=== PATIENT | female | born 1935 | race Caucasian/White ===

== ENCOUNTER 2017-01-18 13:40 | Inpatient (IN) | payer OTHER, MEDICARE ==
[~2017-01-18] VITALS: Ht 162.6 cm; Wt 70.8 kg
[~2017-01-18 13:40] MED LIST: ALBUTEROL2.5 MG/3 M INH; ASPIRIN EC81 M1 PO; BREO ELLIPTA1 POW PO; CINNAMON500 MG PO; JANUVIA 100MG100 MG PO; JANUVIA100 M1 PO; LEVOTHYROXINE0.1 M1 PO; LEVOTHYROXINE75 MCG PO; LIDODERM 5% PAT1 PAT EXT; LOPRESSOR 25MG25 MG PO; MACROBID100 MG PO; METOPROLOL TART25 M1 PO; NEXIUM 40MG40 MG PO; OMEPRAZOLE40 MG PO; PRAVASTATIN SOD40 M2 PO; PRAVASTATIN SOD40 MG PO; PREDNISONE10 M2 PO; PREDNISONE10 MG PO; SPIRIVA18 MCG INH; SYMBICORT 80-10.2 GM INH; TUDORZA PR400 MCG/Ac PO; TYLENOL TAB 32325 MG PO
--- NOTE | 2017-01-18 13:44 | NUR ---
90% ON 3L NC
--- NOTE | 2017-01-18 13:50 | NUR ---
PT TO ED C/O INCREASING EXERTIONAL SOB X A FEW DAYS. PT IS ON 6L NC AT HOME. SATS NOW ON 6L NC 92%. PT'S PCP IS DR SULLIVAN, PT ALSO SEE'S DR ROBERTS.
--- NOTE | 2017-01-18 13:52 | NUR ---
PT TAKEN TO ROOM 3 VIA W/C.
--- NOTE | 2017-01-18 14:06 | NUR ---
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 IV INITIATED, LABS DRAWN. MEEK BYRD AT BEDSIDE FOR EVALUATION
--- NOTE | 2017-01-18 14:10 | ED DYSPNEA/ASTHMA COMPLAINT ---
History of Present Illness General Chief Complaint: Dyspnea (COPD, CHF, Other) Stated Complaint: SOB Source: patient Exam Limitations: no limitations Vital Signs & Intake/Output Vital Signs & Intake/Output Vital Signs Date Time Temp Pulse Resp B/P B/P Pulse O2 O2 Flow FiO2 Mean Ox Delivery Rate 01/18 1650 82 99 01/18 1519 96 97 01/18 1511 98.2 96 40 144/63 92 Nasal 6.0L Cannula 01/18 1440 93 Nasal 6.0L Cannula 01/18 1349 98.0 100 20 110/65 92 Nasal 6.0L Cannula Allergies Coded Allergies: Penicillins (UNKNOWN 12/22/15) amoxicillin (UNKNOWN 12/22/15) azithromycin (UNKNOWN 12/22/15) sulfamethoxazole (From Bactrim) (RASH 12/22/15) trimethoprim (From Bactrim) (RASH 12/22/15) Reconcile Medications Albuterol Sulfate 2.5 MG/3 ML VIAL.NEB 3 ML INH Q4H PRN SHORTNESS OF BREATH Aspirin (Ecotrin) 81 MG TABLET.DR 1 TAB PO DAILY HEART HEALTH (Reported) Budesonide/Formoterol Fumarate (Symbicort 80-4.5 Mcg Inhaler) 10.2 GM HFA.AER.AD 2 PUF INH BID COPD (Reported) Cinnamon (Unknown Strength) CAP 1 CAP PO QPM SUPPLEMENT (Reported) Levothyroxine Sodium 88 MCG TABLET 1 TAB PO DAILY THYROID (Reported) Metoprolol Tartrate 25 MG TABLET 0.5 TAB PO BID SVT (Reported) Pravastatin Sodium 40 MG TABLET 1 TAB PO DAILY CHOLESTEROL (Reported) Prednisone 10 MG TABLET 1 TAB PO SEE ADMIN CRITERIA COPD TAKE 6 TAB FOR 12/26 & THEN TAKE 5 TAB FOR 3 DAY THEN TAKE 4 TAB FOR 3 DAY THEN TAKE 3 TAB FOR 3 DAY THEN TAKE 2 TAB FOR 3 DAY THEN TAKE 1 TAB FOR 3 DAY THEN TAKE 1/2 TAB FOR 3 DAY THEN Sitagliptin Phosphate (Januvia) 100 MG TABLET 1 TAB PO DAILY DIABETES ( Reported) Reason to Stop at ADM: ISS Tiotropium [place] (Spiriva) 18 MCG CAP.W.DEV 1 CAP INH DAILY COPD (Reported) Reason to Stop at ADM: TRC NEBS Triage Note: PT TO ED C/O INCREASING EXERTIONAL SOB X A FEW DAYS. PT IS ON 6L NC AT HOME. SATS NOW ON 6L NC 92%. PT'S PCP IS DR SULLIVAN, PT ALSO SEE'S DR ROBERTS. Triage Nurses Notes Reviewed? yes Onset: Gradual Duration: week(s): (1) Timing: recent history Severity: severe Activities at Onset: activity, rest Prior Episodes/Possible Cause: occasional episodes Modifying Factors: Improves With: immobilization. Worsens With: movement. Associated Symptoms: cough HPI: Patient is an 82-year-old female with history of COPD, on 6 L nasal cannula chronically, sees Dr. mota as her pulmonologists, presenting to the emergency department with chief complaint of increasing shortness of breath, intermittently productive cough of clear sputum over the past 1 week. Dyspnea is worse with exertion. Denies any chest pain or palpitations. Positive wheezing. No fevers or chills. Denies abdominal pain. No change in bowel or bladder habits. Has been using nebulizer treatments 4-5 times daily over the past week without relief. History of being admitted for COPD exacerbation one year ago. Denies palpitations. No recent travel or sick contacts. (ESSENCE MCDANIEL) Past History Travel History Traveled to [place] past 21 day No Medical History Any Pertinent Medical History? see below for history Neurological: NONE EENT: NONE Respiratory: COPD, o2 DEPENDENT CHRONICALLY Gastrointestinal: NONE Hepatic: NONE Renal: NONE Musculoskeletal: NONE Psychiatric: NONE Endocrine: hypothyroidism, DM Blood Disorders: NONE Cancer(s): NONE ADMINISTRATIVE SUPPORT COORDINATOR/Reproductive: HYSTERECTOMY History of MRSA: No History of VRE: No History of CDIFF: No Tetanus Vaccine: 08/28/14 Surgical History Surgical History: cataract removal, hysterectomy Psychosocial History Who do you live with Patient/Self Services at Home None What is your primary language Maori Tobacco Use: Quit >30 days ago ETOH Use: denies use Illicit Drug Use: denies illicit drug use Family History Family History, If Any: MOTHER FHx: diabetes mellitus SISTER (breast cancer). BROTHER (colon cancer). Hx Contributory? No (ESSENCE MCDANIEL) Review of Systems Review of Systems Constitutional: Reports: malaise. Comments Review of systems: See HPI, All other systems negative. Constitutional, no chills fever or weight loss HEENT: No visual changes no sore throat no congestion Cardiovascular: No chest pain ,palpitation , orthopnea or ankle swelling Skin, no jaundice no rashes Respiratory: No hemoptysis GI: No nausea no vomiting : No dysuria No hematuria Muscle skeletal: no back pain, no neck pain, Neurologic: No numbness no confusion no [place] Psych: No stress anxiety or depression,. Heme/endocrine: No bruising no bleeding no polyuria or polydipsia Immunology: No splenectomy or history of AIDS (ROCHELLE EDEN,ESSENCE) Physical Exam Physical Exam General Appearance: alert, awake, moderate distress Respiratory: decreased breath sounds, accessory muscle use, wheezing Comments: Well-developed well-nourished person in moderate distress HEENT: Pupils equally round and reactive to light and accommodation. Nose is atraumatic. External auditory canal and Tympanic membranes clear. Pharynx normal. No swelling or edema. Neck: Normal inspection, no lymphadenopathy normal range of motion. Back: Nontender Cardiovascular: Regular rate and rhythms no murmurs rubs or gallops, normal JVP Respiratory: Chest nontender. Moderate to severe respiratory distress.diffuse wheezing with diminished lung sounds bilaterally at the bases. Increased work of breathing. Intercostal retraction. positive abdominal breathing. Extremity: No edema, no calf tenderness to palpation, normal and equal pulses. Neuro: Alert oriented x3 Skin: No appreciable rash on exposed skin, skin is warm and dry. Psych: Mood and affect is normal, memory and judgment is normal. Core Measures ACS in differential dx? Yes Severe Sepsis Present: No Septic Shock Present: No (ROCHELLE EDEN,ESSENCE) Progress Differential Diagnosis: PATIENT: MARQUITA TREVINO PRESENT AGE: 82 PATIENT ACCOUNT NO: [id number] : 36 LOCATION: [facility] ORDERING PHYSICIAN: ESSENCE EDEN SERVICE DATE: 01/18/17 EXAM TYPE: RAD - XRY-PORTABLE CHEST XRAY EXAMINATION: XR PORTABLE CHEST CLINICAL INFORMATION: Cough, shortness of breath. COMPARISON: Portable chest 12/22/2015, 08/28/2014. TECHNIQUE: Portable frontal view of the chest was obtained. FINDINGS : There is upper zone hyperinflation. The heart is normal in size. The vascularity is normal. Subsegmental atelectasis is present right base. There is suspicion for early airspace consolidation inferior lingula. Tapering at the cardiac apex is consistent with areolar tissue. The remainder the lungs are clear. IMPRESSION: 1. Suspect early airspace consolidation inferior lingula. 2. Disc atelectasis right base. Plan of Care: Orders Procedure Date/time Status Heart Healthy Diet 01/19 B Active Patient Data 01/18 1624 Active EKG 01/18 1624 Active ARTERIAL BLOOD GAS (GEN) 01/18 1623 Complete BLOOD CULTURE 01/18 1623 Active ED Holding Orders 01/18 1619 Active Admit to inpatient 01/18 1619 Active Vital Signs 01/18 1619 Active Code Status 01/18 1619 Active Add-on Test (ER Only) 01/18 1558 Active BIPAP 01/18 1508 Complete Intake & Output 01/18 1418 Active Telemetry/Rotary Cutter Operator 01/18 1417 Active MAGNESIUM 01/18 1410 Complete ARTERIAL BLOOD GAS (GEN) 01/18 1409 Complete TROPONIN LEVEL 01/18 1409 Complete COMPREHENSIVE METABOLIC PANEL 01/18 1409 Complete CBC WITHOUT DIFFERENTIAL 01/18 1409 Complete B-TYPE NATRIURETIC PEP (BNP) 01/18 1409 Complete EKG 01/18 1407 Active Laboratory Tests 01/18/17 1700: pH 7.41, pCO2 47 H, pO2 79 L, HCO3 29 H, ABG O2 Sat (Measured) 95.0 L, Carboxyhemoglobin 1.2 L, O2 Concentration % 40%, Temperature 98.6, Respiration Rate 24, O2 Delivery Method BIPAP, Vent Mode ST, Expiratory Pressure 4, Inspiratory Pressure 10, Phlebotomy Draw Site RIGHT BRACHIAL 01/18/17 1435: pH 7.32 L, pCO2 64 *H, pO2 73 L, HCO3 32 H, ABG O2 Sat (Measured) 92.0 L, P- 50 (Temp Corrected) N, Carboxyhemoglobin 0.7 L, O2 Concentration % 6LPM, O2 Delivery Method NEB TX, Phlebotomy Draw Site RIGHT BRACHIAL 01/18/17 1410: Anion Gap 9, Estimated GFR > 60, BUN/Creatinine Ratio 55.0 H, Glucose 221 H, Calcium 9.3, Magnesium 1.8, Total Bilirubin 0.6, AST 22, ALT 27, Alkaline Phosphatase 54, Troponin I 0.01, Tdx-R-Chzbmfgqmko Pept 361 H, Total Protein 6.9, Albumin 3.8, Globulin 3.1, Albumin/Globulin Ratio 1.2, CBC w Diff NO MAN DIFF REQ, RBC 4.14 L, MCV 92.4, MCH 29.7, RDW 13.8, MPV 9.3, Gran % 67.8, Lymphocytes % 20.4 L, Monocytes % 10.0 H, Eosinophils % 1.6, Basophils % 0.2, Absolute Granulocytes 8.6 H, Absolute Lymphocytes 2.6, Absolute Monocytes 1.3 H, Absolute Eosinophils 0.2, Absolute Basophils 0, PUBS MCHC 32.1 L Microbiology 01/18 1650 BLOOD: Blood Culture - RECD 01/18 1637 BLOOD: Blood Culture - RECD On arrival patient moderate respiratory distress with diffuse wheezing and diminished lung sounds bilaterally. Oxygen saturation on 6 L was in the mid 80s. Positive increased work of breathing. Respiratory was paged patient given raiding treatment along with arterial blood gas sample done. Patient was also given IV Solu-Medrol, IV magnesium to help with bronchodilation. Likely exacerbation of COPD. Cannot exclude pneumonia. Patient afebrile on arrival. With a CBC, CMP, troponin. EKG was normal sinus, unchanged from previous. Patient feeling much improved after treatments, including BiPAP. Work of breathing has decreased since BiPAP. Patient seems more relaxed. We will repeat ABG. Patient will be admitted for COPD exacerbation. She does also have early pneumonia on x-ray with small elevation in white blood cell count. Due to allergies patient given moxifloxacin. d/w dr gotti and he agrees with plan. (ROCHELLE EDEN,ESSENCE) Diagnostic Imaging: Viewed by Me: Radiology Read. Discussed w/RAD: Radiology Read. Radiology Impression: PATIENT: MARQUITA TREVINO PRESENT AGE: 82 PATIENT ACCOUNT NO: [id number] : 36 LOCATION: [facility] ORDERING PHYSICIAN: ESSENCE EDEN SERVICE DATE: 01/18/17 EXAM TYPE: RAD - XRY-PORTABLE CHEST XRAY EXAMINATION: XR PORTABLE CHEST CLINICAL INFORMATION: Cough, shortness of breath. COMPARISON: Portable chest 12/22/2015, 08/28/2014. TECHNIQUE: Portable frontal view of the chest was obtained. FINDINGS : There is upper zone hyperinflation. The heart is normal in size. The vascularity is normal. Subsegmental atelectasis is present right base. There is suspicion for early airspace consolidation inferior lingula. Tapering at the cardiac apex is consistent with areolar tissue. The remainder the lungs are clear. IMPRESSION: 1. Suspect early airspace consolidation inferior lingula. 2. Disc atelectasis right base. Initial ED EKG: NSR ( 97 bpm, lbbb) (ESSENCE MCDANIEL) Departure Departure Time of Disposition: 1600 Disposition: STILL A PATIENT Condition: Stable Clinical Impression Primary Impression: Pneumonia Qualifiers: Pneumonia type: due to unspecified organism Referrals: NATE GALLAGHER,MARY Dee (PCP) Departure Forms: Customer Survey General Discharge Information Admission Note Spoke With: CLAIRE KIM MD Documentation of Exam: Documentation of any treatments & extenuating circumstances including Concerns Regarding Discharge (functional status, medication knowledge or non-compliance, living conditions, etc.) that warrant an admission rather than observation: Patient requiring IV antibiotics for pneumonia, IV steroids for COPD exacerbation, pulmonology consultation, serial DuoNeb treatments, titration oxygen and weaning off BiPAP, repeat ABG. Discharge at this time is medically harmful S patient would likely deteriorate and worsen at home area patient requiring more oxygen than baseline. Patient is not BiPAP dependent at home. (ESSENCE MCDANIEL) PA/CONTRACT NEGOTIATION SPECIALIST Co-Sign Statement Statement: ED Attending supervision documentation- [x] I saw and evaluated the patient. I have also reviewed all the pertinent lab results and diagnostic results. I agree with the findings and the plan of care as documented in the PA's/CONTRACT NEGOTIATION SPECIALIST's documentation. [] I have reviewed the ED Record and agree with the PA's/CONTRACT NEGOTIATION SPECIALIST's documentation. [] Additions or exceptions (if any) to the PAs/CONTRACT NEGOTIATION SPECIALIST's note and plan are summarized below: [] (WILFRED GOTTI DO) Critical Care Note Critical Care Note Critical Care Time: non-applicable (ESSENCE MCDANIEL)
--- NOTE | 2017-01-18 14:21 | NUR ---
PT MEDICATED WITH 125 MG SOLUMEDROL IV AND 1 GM MAG IV. FAMILY MEMBERS AT BEDSIDE
--- NOTE | 2017-01-18 14:22 | NUR ---
RT AT BEDSIDE FOR NEB TX AND ABG. PCXR AT BEDSIDE
[2017-01-18 14:29] LABS: ABSOLUTE BASOPHIL COUNT 0 /CUMM (0.0-0.2); ABSOLUTE EOSINOPHIL COUNT 0.2 /CUMM (0.0-0.7); ABSOLUTE GRANULOCYTE CT 8.6 /CUMM (1.4-6.5); ABSOLUTE LYMPH COUNT 2.6 /CUMM (1.2-3.4); ABSOLUTE MONOCYTE COUNT 1.3 /CUMM (0.10-0.60); BASOPHIL % 0.2 % (0.0-2.0); EOSINOPHIL % 1.6 % (0-5); GRANULOCYTE % 67.8 % (42.2-75.2); HEMATOCRIT 38.2 % (37-47); MEAN CORPUSCULAR HGB 29.7 PG (27.0-31.0); MEAN CORPUSCULAR HGB CONC 32.1 G/DL (33.0-37.0); MEAN CORPUSCULAR VOLUME 92.4 FL (81.0-99.0); MEAN PLATELET VOLUME 9.3 FL (7.4-10.4); PLATELET COUNT 204 /CUMM (130-400); RBC DISTRIBUTION WIDTH 13.8 % (11.5-14.5); RED BLOOD CELL CT 4.14 /CUMM (4.20-5.40); WHITE BLOOD CELL COUNT 12.8 /CUMM (4.8-10.8)
--- NOTE | 2017-01-18 14:44 | RADIOLOGY REPORT ---
EXAMINATION: XR PORTABLE CHEST CLINICAL INFORMATION: Cough, shortness of breath. COMPARISON: Portable chest 12/22/2015, 08/28/2014. TECHNIQUE: Portable frontal view of the chest was obtained. FINDINGS: There is upper zone hyperinflation. The heart is normal in size. The vascularity is normal. Subsegmental atelectasis is present right base. There is suspicion for early airspace consolidation inferior lingula. Tapering at the cardiac apex is consistent with areolar tissue. The remainder the lungs are clear. IMPRESSION: 1. Suspect early airspace consolidation inferior lingula. 2. Disc atelectasis right base.
--- NOTE | 2017-01-18 15:09 | NUR ---
ASSUMED CARE OF PT. RECIEVED REPORT FROM ISMAEL HARP. PT WITH RR OF 40. SATS 92% ON 6 L NC. PT DENIES FEELING ANY BETTER AFTER INITIAL TX OF NEBULIZER, SOLUMEDROL AND MAGNESIUM. RESP THERAPIST IN ROOM TO APPLY BIPAP. SATS DIPTI TO 97% AFTER BEING ON BIPAP FOR 2 MINUTES. PT ENCOURAGED TO TRY TO RELAX WITH BIPAP ON.
--- NOTE | 2017-01-18 15:36 | NUR ---
PT SITTING UP AT FOOT OF STRETCHER. RR 24-30. SATS 97%. PT ASKING IF SHE CAN TAKE BIPAP OFF. PT ENCOURAGED TO CONTINUE TO WEAR BIPAP
--- NOTE | 2017-01-18 15:37 | NUR ---
PT SITTING AT FOOT OF STRETCHER. RR 24-20. SATS 97%. PT ASKING IF SHE CAN COME OFF BIPAP. PT ENCOURAGED TO KEEP BIPAP ON LONG POSSIBLE
--- NOTE | 2017-01-18 16:16 | NUR ---
HOUSE STAFF IN TO SEE PT
--- NOTE | 2017-01-18 16:25 | History & Physical ---
DANIEL GALLAGHER,[facility] 01/18/17 1616: General Information and HPI MD Statement: I have seen and personally examined MARQUITA TREVINO and documented this H&P. The patient is a 82 year old F who presented with a patient stated chief complaint of [shortness of breath]. Source of Information: patient Exam Limitations: no limitations History of Present Illness: This is 82 year old woman with a past medical hsitory of COPD, on home oxygen, 6L lives alone, NIDDM, history of SVT, Hypothyroidism S/P Goiter surgery, on levothyroxine, presented to [place] ED with 3 day history of shortness of breath. 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 The patient has had increased shortness of breath over past 3 days. The shortness of breath is present at rest and increases with exertion. It is also accompanied by productive cough intermittently. Sometimes there is white phlegm with the cough. For the past few days she has been using her nebulizer 4-5 times every day without any relief and today she decided to come to ED because it was getting worse. She denies any nausea vomiting. She does not endorse any fever or chills. There is no history of sick contacts. She has never been intubated for COPD. She denies any chest pain or palpitations. The patient was sitting comfortably in the bed and she was on BiPAP during the interview. 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 BROTHER (colon cancer). Psychosocial History Services at Home: None Primary Language: Latvian Smoking Status: Former Smoker (1 ppd quit long time ago) ETOH Use: denies use Illicit Drug Use: denies illicit drug use Functional Ability ADLs Independent: dressing, eating, toileting, bathing. Review of Systems Review of Systems Constitutional: Denies: chills, fever. EENTM: Reports: no symptoms. Cardiovascular: Denies: chest pain, palpitations. Respiratory: Reports: short of breath. Denies: cough. GI: Reports: no symptoms. Denies: constipation, diarrhea. Genitourinary: Reports: no symptoms. Musculoskeletal: Reports: no symptoms. Skin: Reports: no symptoms. Neurological/Psychological: Reports: no symptoms. Exam & Diagnostic Data Last 24 Hrs of Vital Signs/I&O Vital Signs Date Time Temp Pulse Resp B/P B/P Pulse O2 O2 Flow FiO2 Mean Ox Delivery Rate 01/18 1519 96 97 01/18 1511 98.2 96 40 144/63 92 Nasal 6.0L Cannula 01/18 1440 93 Nasal 6.0L Cannula 01/18 1349 98.0 100 20 110/65 92 Nasal 6.0L Cannula Intake & Output 01/18 1600 01/18 0800 01/18 0000 Intake Total Output Total Balance Patient 156 lb Weight Weight Estimated Measurement Method Physical Exam General Appearance Alert, Oriented X3, Cooperative, No Acute Distress Skin No Rashes, No Breakdown HEENT Atraumatic, Pupils equally round and reactive to light and accommodation. Nose is atraumatic. Neck Supple, No JVD Cardiovascular Normal S1, Normal S2 Lungs diminished lung sounds bilaterally at the bases. crackels at base. Abdomen Normal Bowel Sounds, Soft, No Tenderness Neurological Normal Speech Extremities No Edema Last 24 Hrs of Labs/Bill: Laboratory Tests 01/18/17 1700: pH 7.41, pCO2 47 H, pO2 79 L, HCO3 29 H, ABG O2 Sat (Measured) 95.0 L, Carboxyhemoglobin 1.2 L, O2 Concentration % 40%, Temperature 98.6, Respiration Rate 24, O2 Delivery Method BIPAP, Vent Mode ST, Expiratory Pressure 4, Inspiratory Pressure 10, Phlebotomy Draw Site RIGHT BRACHIAL 01/18/17 1435: pH 7.32 L, pCO2 64 *H, pO2 73 L, HCO3 32 H, ABG O2 Sat (Measured) 92.0 L, P- 50 (Temp Corrected) N, Carboxyhemoglobin 0.7 L, O2 Concentration % 6LPM, O2 Delivery Method NEB TX, Phlebotomy Draw Site RIGHT BRACHIAL 01/18/17 1410: Anion Gap 9, Estimated GFR > 60, BUN/Creatinine Ratio 55.0 H, Glucose 221 H, Calcium 9.3, Magnesium 1.8, Total Bilirubin 0.6, AST 22, ALT 27, Alkaline Phosphatase 54, Troponin I 0.01, Fju-M-Jcpgbexnsnn Pept 361 H, Total Protein 6.9, Albumin 3.8, Globulin 3.1, Albumin/Globulin Ratio 1.2, CBC w Diff NO MAN DIFF REQ, RBC 4.14 L, MCV 92.4, MCH 29.7, RDW 13.8, MPV 9.3, Gran % 67.8, Lymphocytes % 20.4 L, Monocytes % 10.0 H, Eosinophils % 1.6, Basophils % 0.2, Absolute Granulocytes 8.6 H, Absolute Lymphocytes 2.6, Absolute Monocytes 1.3 H, Absolute Eosinophils 0.2, Absolute Basophils 0, PUBS MCHC 32.1 L Microbiology 01/18 1650 BLOOD: Blood Culture - RECD 01/18 1637 BLOOD: Blood Culture - RECD Assessment/Plan Assessment: Assessment This is 82 year old woman with a past medical hsitory of COPD, on home oxygen, 6L lives alone, NIDDM, history of SVT, Hypothyroidism S/P Goiter surgery, on levothyroxine, PE not on any anticoagulation presented to [place] ED with 3 day history of shortness of breath. Pertinent data Vital signs on admission temperature 98.0 pulse 100 respiratory rate 20 blood pressure 110-65 pulse ox 92% ABG pH 7.32 Pco2 64 PO2 73 Bicarb 32 WBC 12.8, BNP 361, HCO3 33, BUN 22 Cr .4 CXR Suspect early airspace consolidation inferior lingula.Disc atelectasis right base. EKG showed LBBB,Rate 62, VA 164, QRS 128, QTC 486. Plan In ED, patient was on 6 L nasal cannula and satting 92%. Nebulizer, Solu-Medrol and magnesium were given to her in ED and later started on BIPAP by the respiratory therapist. Pt was given single dose of Moxifloxcin as well. We're admitting her to [facility] for further monitoring and treatment. Acute hypoxic respiratory failure secondary to COPD exacerbation: This is most likely acute COPD exacerbation requiring a BiPAP in ER. She was found to be hypoxic and hypercarbic by ABG. Her repeat ABGs showed improvement. She is afebrile with a white count of 12 with suspected airspace consolidation of the inferior lingula * TRC as necessary * Nasal cannula and BiPAP as needed for sats greater than 92% * Continue Solu-Medrol * With the suspicion of CAP, patient is being started on IV doxycycline (patient had allergy to penicillin and azithromycin) * Follow Strep and legionella urine antigen * Monitor CBC * follow blood cultures * Courtesy call to Dr. Perez in the morning Sinus Tachycardia Patient had history of SVT in the past. Pt was given a single dose of Moxifloxicin in ED. QTC interval was 486. Will continue to monitor * Continue Metoprolol * Repeat EKG in the morning Hypothyroidism status post goiter surgery: Patient has history of hypothyroidism status post goiter surgery. We are going to continue her home dose of levothyroxine. * continue home dose levothyroxine * Follow TSH and T4 Mwl-pkfysnq-kxoepgcfg diabetes mellitus Patient takes Januvia at home. Hold Januvia * Slinding Scale Insulin * Accu-checks As Ranked By This Provider Problem List: 1. COPD exacerbation 2. Hypoxia 3. Respiratory distress 4. Pneumonia Qualifiers Pneumonia type: due to unspecified organism Core Measures/Miscellaneous Acute Coronary Syndrome ACS Diagnosis: No Cerebrovascular Accident CVA/TIA Diagnosis: No Congestive Heart Failure CHF Diagnosis: No VTE (View Protocol) VTE Risk Factors: CHF or Resp failure, Smoking [facility] prophylaxis d/t: No contraindications No VTE Pharm Prophylaxis d/t: No contraindications VTE Diagnosis: No VTE Type: NONE VTE Confirmed by (Test): NONE Sepsis (View Protocol) Severe Sepsis Present: No Septic Shock Septic Shock Present: No Miscellaneous Documentation Attending Case Discussed With: CLAIRE KIM MD Primary Care Physician: MARY SULLIVAN MD Patient sees these Specialists Dr. Perez Pul Level of Patient Care: General Medicine CLAIRE KIM MD 01/18/17 8050: General Information and HPI Allergies/Medications Home Med list Albuterol Sulfate 2.5 MG/3 ML VIAL.NEB 3 ML INH Q4H PRN SHORTNESS OF BREATH Aspirin (Ecotrin*) 81 MG TABLET. 1 TAB PO DAILY HEART HEALTH (Reported) Budesonide/Formoterol Fumarate (Symbicort 80-4.5 Mcg Inhaler) 10.2 GM HFA.AER.AD 2 PUF INH BID COPD (Reported) Levothyroxine Sodium 75 MCG TABLET 1 TAB PO DAILY THYROID (Reported) Metoprolol Tartrate 25 MG TABLET 0.5 TAB PO BID SVT (Reported) Pravastatin Sodium 40 MG TABLET 1 TAB PO DAILY CHOLESTEROL (Reported) Sitagliptin Phosphate (Januvia) 100 MG TABLET 1 TAB PO DAILY DIABETES ( Reported) Reason to Stop at ADM: ISS Tiotropium Costilla (Spiriva) 18 MCG CAP.W.DEV 1 CAP INH DAILY COPD (Reported) Reason to Stop at ADM: TRC NEBS Attending MD Review Statement Attending Statement Attending MD Statement: examined this patient, discuss w/resident/PA/RN CHILD, agreed w/resident/PA/RN CHILD, discussed with family, reviewed EMR data (avail), discussed with nursing, reviewed images, amended to note Attending Assessment/Plan: 82 y/o F with pmh sig for ch resp failure, ch diastolic CHF, COPD on 6 L oxygen, small PE not on anticoagulation, Hypothyroidism due to goiter surgery, diabetes, hyperlipidemia, history of SVT presented with increasing shortness of breath and dyspnea on exertion. Symptoms started about 2 or 3 days ago. Patient denies any sick exposures. She denies any active or passive exposure to smoking. She quit smoking a few years ago. He claims that usually summer and humidity aren't that bad season for her. She did admit to feeling warm but no temperature was taken. Patient afebrile in the emergency room. She does admit to increasing cough and sputum production but does not know the color of the sputum. She did complain of mild chest discomfort secondary to having hard time breathing. She denies chest pain as such. She denies any sore throat, earache or sinus tenderness. She lives by herself. In the emergency room patient found to have mild respiratory acidosis. She was put on BiPAP. She has been using her neb treatments more often. Vital Signs Date Time Temp Pulse Resp B/P B/P Pulse O2 O2 Flow FiO2 Mean Ox Delivery Rate 01/18 1713 97.6 89 28 151/68 96 BIPAP 01/18 1650 82 99 01/18 1519 96 97 01/18 1511 98.2 96 40 144/63 92 Nasal 6.0L Cannula 01/18 1440 93 Nasal 6.0L Cannula 01/18 1349 98.0 100 20 110/65 92 Nasal 6.0L Cannula On exam; aox3, mild distress wearing BIPAP. CV; s1,s2, rrr. Resp; decrease breath sounds overall. Abd; soft, nt, bs+ ext: trace edema. Laboratory Tests 01/18 01/18 1700 1435 Blood Gas pH (7.35 - 7.45 PH) 7.41 7.32 L pCO2 (35 - 45 TORR) 47 H 64 *H pO2 (80 - 100 TORR) 79 L 73 L HCO3 (21 - 28 MEQ/L) 29 H 32 H ABG O2 Sat (Measured) (>96.0 %) 95.0 L 92.0 L P-50 (Temp Corrected) N Carboxyhemoglobin (1.5 - 5.0 %) 1.2 L 0.7 L O2 Concentration % 40% 6LPM Temperature (97.0 - 100.0 FARH) 98.6 Respiration Rate (BPM) 24 O2 Delivery Method BIPAP NEB TX Vent Mode ST Expiratory Pressure (CM H2O P) 4 Inspiratory Pressure (CM H2O P) 10 Miscellaneous Phlebotomy Draw Site RIGHT BRACHIAL RIGHT BRACHIAL 01/18 1410 Chemistry Sodium (137 - 145 mmol/L) 139 Potassium (3.5 - 5.1 mmol/L) 4.2 Chloride (98 - 107 mmol/L) 96 L Carbon Dioxide (22 - 30 mmol/L) 33 H Anion Gap (5 - 16) 9 BUN (7 - 17 mg/dL) 22 H Creatinine (0.5 - 1.0 mg/dL) 0.4 L Estimated GFR (>60 ml/min) > 60 BUN/Creatinine Ratio (7 - 25 %) 55.0 H Glucose (65 - 99 mg/dL) 221 H Calcium (8.4 - 10.2 mg/dL) 9.3 Magnesium (1.6 - 2.3 mg/dL) 1.8 Total Bilirubin (0.2 - 1.3 mg/dL) 0.6 AST (14 - 36 U/L) 22 ALT (9 - 52 U/L) 27 Alkaline Phosphatase (<127 U/L) 54 Troponin I (< 0.11 ng/ml) 0.01 Any-R-Spujaqpsxsr Pept (<125 pg/mL) 361 H Total Protein (6.3 - 8.2 g/dL) 6.9 Albumin (3.5 - 5.0 g/dL) 3.8 Globulin (1.9 - 4.2 gm/dL) 3.1 Albumin/Globulin Ratio (1.1 - 2.2 %) 1.2 Hematology CBC w Diff NO MAN DIFF REQ WBC (4.8 - 10.8 /CUMM) 12.8 H RBC (4.20 - 5.40 /CUMM) 4.14 L Hgb (12.0 - 16.0 G/DL) 12.3 Hct (37 - 47 %) 38.2 MCV (81.0 - 99.0 FL) 92.4 MCH (27.0 - 31.0 PG) 29.7 RDW (11.5 - 14.5 %) 13.8 Plt Count (130 - 400 /CUMM) 204 MPV (7.4 - 10.4 FL) 9.3 Gran % (42.2 - 75.2 %) 67.8 Lymphocytes % (20.5 - 51.1 %) 20.4 L Monocytes % (1.7 - 9.3 %) 10.0 H Eosinophils % (0 - 5 %) 1.6 Basophils % (0.0 - 2.0 %) 0.2 Absolute Granulocytes (1.4 - 6.5 /CUMM) 8.6 H Absolute Lymphocytes (1.2 - 3.4 /CUMM) 2.6 Absolute Monocytes (0.10 - 0.60 /CUMM) 1.3 H Absolute Eosinophils (0.0 - 0.7 /CUMM) 0.2 Absolute Basophils (0.0 - 0.2 /CUMM) 0 PUBS MCHC (33.0 - 37.0 G/DL) 32.1 L EKG>> Sinus rhythm with LBBB present from before. QTC 486. CXR: 1. Suspect early airspace consolidation inferior lingula. 2. Disc atelectasis right base. A/P; 82 y/o F with pmh sig for ch resp failure, ch diastolic CHF, COPD on 6 L oxygen, small PE not on anticoagulation, Diabetes, Hypothyroidism due to goiter surgery, diabetes, hyperlipidemia, history of SVT admitted with acute on chronic hypoxic and hypercarbic respiratory failure and possible minute acquired pneumonia versus bronchitis. Patient will be admitted to medicine floor. Will try to obtain sputum culture. Please check urine strep and Legionella antigen. Patient did receive moxifloxacin in the emergency room , will switch to Doxy 2/2 to borderline QTC. Will continue IV steroids, TRC nebs and home inhalers, Pulm consult with Dr. Joseph. Patient on levothyroxine, can check TSH, free t4. With history of diabetes she should get Accu-Cheks. Can be continued on her Januvia. Expect hyperglycemia with IV steroids and she should be treated with insulin for that. She does have a slightly high proBNP but her proBNP has been higher in the past. Clinically she does not look like an acute CHF. I recommend repeat checking her ABGs at this time is to had hypercarbia at the time of presentation. She had been put on BiPAP since then. DVT prophylaxis: Lovenox. Full code. MILI GALLAGHER,[facility] 01/18/17 1900: Resident Review Statement Resident Statement: examined this patient Other Findings: This is a 82-year-old female W/ past medical history significant for COPD on 6 L home O2, gmk-lehxhfl-rwryczhtq diabetes mellitus, SVT, hypothyroidism status post thyroid surgery now on replacement, neurogenic bladder, who comes in for chief complaint of shortness of breath. Patient states she's had symptoms past 3 days. She has been on 6 L O2 continuously she has tried to use nebs but found no relief. She denies any recent travel or sick contacts. She denies cough beyond her baseline. Denies fever, chills, nausea, vomiting, diarrhea, dysuria or headache. Notably, patient does have history of a tiny pulmonary embolus in 2014. It was in left lower lobe segmental pulmonary artery without additional filling defects. Patient not on any anticoagulation. 01/30/2016 was her previous admission for COPD exacerbation. She states that she has never been intubated, but has been on BiPAP before. She sees Dr. Escobar for pulmonology and follows up in the COPD clinic. In ED, patient was on 6 L nasal cannula and satting 92%. In ED patient was given nebulizer, Solu-Medrol and magnesium. Respiratory therapist then started BiPAP. Notable allergies: Penicillin, amoxicillin, azithromycin, Bactrim. Patient states that she cannot remember her allergies to penicillin. She has gotten ceftriaxone previously. She is also unsure of her history of azithromycin. She has gotten the medication previously without adverse effect. Vitals: 98, 100, 20, 110/65, 92% on 6 L. Physical exam: HEENT: PERRLA, EOMI, Pt on bipap. Neck: supple Lungs: Decreased air mvmt. crackles at bases. No wheezes Cardiac: Regualr rhythm, nml s1, s2. no murmur Abd: soft non tender. no guarding or rebound LE: No edema Pertinent labs: CBC: White count 12.8, hemoglobin 12.3, hematocrit 38.2. ABG: PH 7.32, PCO2 64, bicarbonate 32. BNP 361. EKG: Rate 62, VA 164, QRS 128, QTC 486. Evidence of left bundle branch block. Chest x-ray: Inferior airspace opacity at lingula. Discoid atelectasis at right base. Assessment: This is a 82-year-old female past medical history of COPD on 6 L O2, diabetes, hypothyroidism, SVT, who comes in for chief complaint of worsening shortness of breath. In ED she was found to be satting 92% on 6 L but still complained of subjective shortness of breath. Chest x-ray shows airspace consolidation and ABG shows acute on chronic hypoxic and hypercarbic respiratory failure. As such , patient will be admitted to the general medicine floor for further monitoring and workup. Plan: Acute on chronic hypoxic and hypercarbic respiratory failure secondary to COPD versus pneumonia: Patient does not have fever but does have white count of 12.8 and a lingular airspace opacity. She was found to be hypoxic and hypercarbic by ABG (see above). In ED she was placed on BiPAP as she endorsed subjective shortness of breath on her baseline 6 L O2. Given her significant allergies to penicillin, amoxicillin, azithromycin and Bactrim we will pursue an alternate regimen. Patient was initially given moxifloxacin in ED but her QTc is 486. She has previously received ceftriaxone and azithromycin but given the QT prolongation potential azithromycin and will hold off on this regimen. The patient has had a tiny pulmonary embolus in 2014. At this time she has Wells score of 1.5 points placing her in low risk group with 1.3% chance of PE. * Doxycycline 100 mg by mouth twice a day * Repeat EKG in a.m. 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 Escobar * If suspicion of pulmonary embolus persists consider d-dimer/ CT PE Diabetes: Chronic and stable patient on oral regimen at home. * Hold oral regimen * Regular Insulin sliding scale * Fingerstick * Diabetic diet Hypothyroidism: Chronic and stable * Continue 75 g of levothyroxine History of SVT: Chronic and stable * Continue metoprolol Full code Chemical DVT prophylaxis Diabetic diet
--- NOTE | 2017-01-18 16:52 | NUR ---
TWO SETS OF BLOOD CULTURES DRAWN. RT IN TO DRAW REPEAT ABGS
--- NOTE | 2017-01-18 16:55 | NUR ---
ROOM 223 BED ASSIGNMENT NURSE INFORMED
--- NOTE | 2017-01-18 17:04 | NUR ---
EKG BEING DONE
--- NOTE | 2017-01-18 17:15 | NUR ---
PT HAS BEEN ABLE TO TOLERATE BIPAP. RESP RATE DECREASED WHILE ON BIPAP AND SATS ABOVE 95% CONSISTENTLY. PT APPEARS RELAXED, SITTING ON EDGE OF STRETCHER. DISCUSSED WITH PT THAT ATIVAN WAS ORDERED FOR HER IF SHE FELT SHE NEEDED SOMETHING TO HELP HER RELAX AND TOLERATE BIPAP. PT REFUSING ATIVAN AT THIS TIME
--- NOTE | 2017-01-18 17:27 | NUR ---
REPORT CALLED TO GEN REMY MILLER RN
--- NOTE | 2017-01-18 17:33 | NUR ---
HOUSE STAFF IN TO SEE PT
[2017-01-18 18:03] VITALS: BP 130/70
--- NOTE | 2017-01-18 18:23 | NUR ---
PT ARRIVED TO FLOOR AT 1805 FROM ED VIA STRETCHER. PT AMBULATED TO HOSPITAL BED WITH STEADY GAIT. PT A/V/OX3. ON 6LNC. PER PT, SHE IS ON 6LNC AT BASELINE AT HOME AND HAS BEEN ON 6LNC FOR ABOUT 6 MONTHS AND BEFORE THAT 4LNC. PT WAS ON BIPAP IN ED AND TOLERATED WELL, QUESTIONING WHETHER SHE WILL BE ON BIPAP ON THIS FLOOR. THIS RN PAGED RESPIRATORY, PER RESPIRATORY, PT WILL PROBABLY GO ON BIPAP LATER THIS EVENING. LUNGS DIMINISHED, EXERTIONAL SOB, NO COUGH NOTED. PT IND TO BSC. VITAL SIGNS STABLE. SKIN INTACT. BG 227. PT EATING DINNER. DENIES ANY PAIN. #20 RFA FLUSHING EASILY AND PATENT. NO HX OF FALLS. ORIENTED TO ROOM, CALL ROCHE, AND SURROUNDINGS. SAFETY PRECAUTIONS MAINTAINED.
[2017-01-18 22:10] VITALS: BP 112/60
[2017-01-19 06:09] VITALS: BP 130/60
--- NOTE | 2017-01-19 06:59 | PN- Housestaff ---
Subjective Follow-up For: COPD exacerbation CAPD Subjective: I have seen and examined the patient. The patient was sitting comfortably in her bed. She was using 6 L oxygen nasal cannula. She believes she is back to her baseline. She wanted somebody from pulmonology to follow up with her. She denies any chest pain fever palpitations. Review of Systems Constitutional: Reports: no symptoms. Cardiovascular: Denies: chest pain, palpitations. Respiratory: Reports: short of breath. Gastrointestinal: Denies: distention, bowel incontinence, melena. Genitourinary: Reports: no symptoms. Skin: Reports: no symptoms. Objective Last 24 Hrs of Vital Signs/I&O Vital Signs Date Time Temp Pulse Resp B/P B/P Pulse O2 O2 Flow FiO2 Mean Ox Delivery Rate 01/19 1121 97 Nasal 6.0L Cannula 01/19 0800 91 Nasal 6.0L Cannula 01/19 0609 98.3 90 20 130/60 91 Nasal 6.0L Cannula 01/19 0606 91 01/19 0347 76 98 01/19 0346 79 99 01/19 0058 73 92 01/19 0054 75 88 01/19 0000 BIPAP 01/18 2210 99.3 88 20 112/60 97 01/18 2200 89 93 01/18 2155 BIPAP 40% 01/18 1900 89 92 01/18 1805 93 Nasal 6.0L Cannula 01/18 1803 98.4 89 18 130/70 93 Nasal 6.0L Cannula 01/18 1713 97.6 89 28 151/68 96 BIPAP 01/18 1650 82 99 01/18 1519 96 97 01/18 1511 98.2 96 40 144/63 92 Nasal 6.0L Cannula 01/18 1440 93 Nasal 6.0L Cannula Intake & Output 01/19 1600 01/19 0800 01/19 0000 Intake Total 600 120 600 Output Total 1050 500 Balance 600 -930 100 Intake, Oral 600 120 600 Number 0 0 Bowel Movements Output, Urine 1050 500 Patient 156 lb Weight Physical Exam General Appearance: Alert, Oriented X3, Cooperative Skin: No Rashes, No Breakdown Neck: Supple Cardiovascular: Normal S1, Normal S2, No Murmurs Lungs: diminished lung sounds bilaterally at the bases. crackels at base. no wheezing Abdomen: Normal Bowel Sounds, Soft, No Tenderness Neurological: Normal Speech Current Medications: Current Medications Sig/Linnea Start time Last Medication Dose Route Stop Time Status Admin Albuterol Sulfate 3 ML EVERY 4 HRS/AWAKE 01/19 0800 AC 01/19 INH 1113 Aspirin Buffered 81 MG DAILY 01/19 1000 AC 01/19 PO 1052 Budesonide/ 2 PUF BID 01/18 2200 AC 01/19 Formoterol Fumarate INH 1052 Doxycycline Hyclate 100 MG BID 01/18 2200 AC 01/19 PO 1052 Enoxaparin Sodium 40 MG DAILY 01/19 1000 AC 01/19 SC 1053 Levothyroxine Sodium 0.075 MG DAILY AC 01/19 0700 AC 01/19 PO 0555 Lorazepam 0.5 MG ONCE ONE 01/18 1600 DC IV 01/18 1601 Methylprednisolone 60 MG Q12 01/19 1000 CAN IV Methylprednisolone 40 MG Q12 01/19 1000 AC 01/19 IV 1225 Moxifloxacin HCl 400 MG ONCE ONE 01/18 1600 DC 01/18 PO 01/18 1601 1714 Patient Medication 1 ED .STK-MED ONE 01/19 1327 [place] Teaching ED 01/19 1328 Tiotropium [place] 1 PUF DAILY 01/19 1000 AC 01/19 INH 1052 Last 24 Hrs of Lab/Bill Results Last 24 Hrs of Labs/Mics: Laboratory Tests 01/19/17 0630: Anion Gap 10, Estimated GFR > 60, BUN/Creatinine Ratio 40.0 H, CBC w Diff NO MAN DIFF REQ, RBC 3.86 L, MCV 92.5, MCH 30.2, RDW 14.2, MPV 9.5, Gran % 78.7 H , Lymphocytes % 13.9 L, Monocytes % 7.1, Eosinophils % 0, Basophils % 0.3, Absolute Granulocytes 9.0 H, Absolute Lymphocytes 1.6, Absolute Monocytes 0.8 H, Absolute Eosinophils 0, Absolute Basophils 0, PUBS MCHC 32.6 L 01/18/17 1700: pH 7.41, pCO2 47 H, pO2 79 L, HCO3 29 H, ABG O2 Sat (Measured) 95.0 L, Carboxyhemoglobin 1.2 L, O2 Concentration % 40%, Temperature 98.6, Respiration Rate 24, O2 Delivery Method BIPAP, Vent Mode ST, Expiratory Pressure 4, Inspiratory Pressure 10, Phlebotomy Draw Site RIGHT BRACHIAL Microbiology 01/18 2259 URINE ROUT: Legionella Antigen - COMP 07/18 2259 URINE ROUT: Streptococcus pneumoniae Antigen (M - COMP 01/18 1650 BLOOD: Blood Culture - RES 01/18 1637 BLOOD: Blood Culture - RES Assessment/Plan Assessment: his is 82 year old woman with a past medical hsitory of COPD, on home oxygen, 6L lives alone, NIDDM, history of SVT, Hypothyroidism S/P Goiter surgery, on levothyroxine, PE not on any anticoagulation presented to [facility] with 3 day history of shortness of breath. Pertinent data Vital signs on admission temperature 98.0 pulse 100 respiratory rate 20 blood pressure 110-65 pulse ox 92% ABG pH 7.32 Pco2 64 PO2 73 Bicarb 32 WBC 12.8, BNP 361, HCO3 33, BUN 22 Cr .4 CXR Suspect early airspace consolidation inferior lingula.Disc atelectasis right base. EKG showed LBBB,Rate 62, MS 164, QRS 128, QTC 486. Plan In ED, patient was on 6 L nasal cannula and satting 92%. Nebulizer, Solu-Medrol and magnesium were given to her in ED and later started on BIPAP by the respiratory therapist. Pt was given single dose of Moxifloxcin as well. We're admitting her to [facility] for further monitoring and treatment. Acute hypoxic respiratory failure secondary to COPD exacerbation: This is most likely acute COPD exacerbation requiring a BiPAP in ER. She was found to be hypoxic and hypercarbic by ABG. Her repeat ABGs showed improvement. She is afebrile with a white count of 11.4 with suspected airspace consolidation of the inferior lingula * TRC as necessary * Nasal cannula and BiPAP as needed for sats greater than 92% * Continue IV Solu-Medrol 40 mg every 12 * With the suspicion of CAP, patient is being started on IV doxycycline (patient had allergy to penicillin and azithromycin) Day 2 * Follow Strep and legionella urine antigen * Monitor CBC * follow blood cultures * Courtesy call to Dr. Perez in the morning * Awaiting pulm consult Sinus Tachycardia Patient had history of SVT in the past. Pt was given a single dose of Moxifloxicin in ED. QTC interval was 486 in ER. Will continue to monitor * Continue Metoprolol Hypothyroidism status post goiter surgery: Patient has history of hypothyroidism status post goiter surgery. We are going to continue her home dose of levothyroxine. * continue home dose levothyroxine * Follow TSH and T4 Ada-xunrdnm-kulhcbnvs diabetes mellitus Patient takes Januvia at home. Hold Januvia * Slinding Scale Insulin * Accu-checks Problem List: 1. Hypoxia 2. COPD exacerbation Pain Ratin Pain Location: none Pain Goal: Pain 4 or less Pain Plan: n/a Tomorrow's Labs & Rationales: cbc bep
[2017-01-19 09:12] LABS: ABSOLUTE BASOPHIL COUNT 0 /CUMM (0.0-0.2); ABSOLUTE EOSINOPHIL COUNT 0 /CUMM (0.0-0.7); ABSOLUTE LYMPH COUNT 1.6 /CUMM (1.2-3.4); ABSOLUTE MONOCYTE COUNT 0.8 /CUMM (0.10-0.60); BASOPHIL % 0.3 % (0.0-2.0); EOSINOPHIL % 0 % (0-5); GRANULOCYTE % 78.7 % (42.2-75.2); HEMATOCRIT 35.7 % (37-47); MEAN CORPUSCULAR HGB 30.2 PG (27.0-31.0); MEAN CORPUSCULAR HGB CONC 32.6 G/DL (33.0-37.0); MEAN CORPUSCULAR VOLUME 92.5 FL (81.0-99.0); MEAN PLATELET VOLUME 9.5 FL (7.4-10.4); PLATELET COUNT 191 /CUMM (130-400); RBC DISTRIBUTION WIDTH 14.2 % (11.5-14.5); RED BLOOD CELL CT 3.86 /CUMM (4.20-5.40); WHITE BLOOD CELL COUNT 11.4 /CUMM (4.8-10.8)
--- NOTE | 2017-01-19 12:26 | PN- Att Addend ---
Attending Addendum Attending Brief Note Patient seen and examined. Plan of care discussed with the medical team and the patient. Available lab work and radiology test reports were reviewed. Patient feels well and denies any worsening of her difficulty breathing. She denies any recent fever or chills. Denies nausea vomiting or abdominal pain. No reports of diarrhea. Vital Signs Date Time Temp Pulse Resp B/P B/P Pulse O2 O2 Flow FiO2 Mean Ox Delivery Rate 01/19 1121 97 Nasal 6.0L Cannula 01/19 0800 91 Nasal 6.0L Cannula 01/19 0609 98.3 90 20 130/60 91 Nasal 6.0L Cannula 01/19 0606 91 01/19 0347 76 98 01/19 0346 79 99 01/19 0058 73 92 01/19 0054 75 88 01/19 0000 BIPAP 01/18 2210 99.3 88 20 112/60 97 01/18 2200 89 93 01/18 2155 BIPAP 40% 01/18 1900 89 92 01/18 1805 93 Nasal 6.0L Cannula 01/18 1803 98.4 89 18 130/70 93 Nasal 6.0L Cannula 01/18 1713 97.6 89 28 151/68 96 BIPAP 01/18 1650 82 99 01/18 1519 96 97 01/18 1511 98.2 96 40 144/63 92 Nasal 6.0L Cannula 01/18 1440 93 Nasal 6.0L Cannula 01/18 1349 98.0 100 20 110/65 92 Nasal 6.0L Cannula Intake & Output 01/19 1600 01/19 0800 01/19 0000 Intake Total 120 600 Output Total 1050 500 Balance -930 100 Intake, Oral 120 600 Number 0 Bowel Movements Output, Urine 1050 500 Patient 156 lb Weight Exam: General: Patient awake alert oriented without any distress CVS: S1 plus S2 without any murmur or gallops Chest: Few scattered crepitation without any wheeze. There is no respiratory distress. Abdomen: Soft nontender, bowel sound present, no guarding or rebound TECHNICAL COORDINATOR: Awake alert oriented without any focal neuro deficit and follows command appropriately Extremities: No edema; no clubbing or cyanosis noted Laboratory Tests 01/19 01/18 0630 1700 Blood Gas pH (7.35 - 7.45 PH) 7.41 pCO2 (35 - 45 TORR) 47 H pO2 (80 - 100 TORR) 79 L HCO3 (21 - 28 MEQ/L) 29 H ABG O2 Sat (Measured) (>96.0 %) 95.0 L Carboxyhemoglobin (1.5 - 5.0 %) 1.2 L O2 Concentration % 40% Temperature (97.0 - 100.0 FARH) 98.6 Respiration Rate (BPM) 24 O2 Delivery Method BIPAP Vent Mode ST Expiratory Pressure (CM H2O P) 4 Inspiratory Pressure (CM H2O P) 10 Chemistry Sodium (137 - 145 mmol/L) 140 Potassium (3.5 - 5.1 mmol/L) 4.5 Chloride (98 - 107 mmol/L) 100 Carbon Dioxide (22 - 30 mmol/L) 30 Anion Gap (5 - 16) 10 BUN (7 - 17 mg/dL) 20 H Creatinine (0.5 - 1.0 mg/dL) 0.5 Estimated GFR (>60 ml/min) > 60 BUN/Creatinine Ratio (7 - 25 %) 40.0 H Hematology CBC w Diff NO MAN DIFF REQ WBC (4.8 - 10.8 /CUMM) 11.4 H RBC (4.20 - 5.40 /CUMM) 3.86 L Hgb (12.0 - 16.0 G/DL) 11.6 L Hct (37 - 47 %) 35.7 L MCV (81.0 - 99.0 FL) 92.5 MCH (27.0 - 31.0 PG) 30.2 RDW (11.5 - 14.5 %) 14.2 Plt Count (130 - 400 /CUMM) 191 MPV (7.4 - 10.4 FL) 9.5 Gran % (42.2 - 75.2 %) 78.7 H Lymphocytes % (20.5 - 51.1 %) 13.9 L Monocytes % (1.7 - 9.3 %) 7.1 Eosinophils % (0 - 5 %) 0 Basophils % (0.0 - 2.0 %) 0.3 Absolute Granulocytes (1.4 - 6.5 /CUMM) 9.0 H Absolute Lymphocytes (1.2 - 3.4 /CUMM) 1.6 Absolute Monocytes (0.10 - 0.60 /CUMM) 0.8 H Absolute Eosinophils (0.0 - 0.7 /CUMM) 0 Absolute Basophils (0.0 - 0.2 /CUMM) 0 PUBS MCHC (33.0 - 37.0 G/DL) 32.6 L Miscellaneous Phlebotomy Draw Site RIGHT BRACHIAL 01/18 01/18 1435 1410 Blood Gas pH (7.35 - 7.45 PH) 7.32 L pCO2 (35 - 45 TORR) 64 *H pO2 (80 - 100 TORR) 73 L HCO3 (21 - 28 MEQ/L) 32 H ABG O2 Sat (Measured) (>96.0 %) 92.0 L P-50 (Temp Corrected) N Carboxyhemoglobin (1.5 - 5.0 %) 0.7 L O2 Concentration % 6LPM O2 Delivery Method NEB TX Chemistry Sodium (137 - 145 mmol/L) 139 Potassium (3.5 - 5.1 mmol/L) 4.2 Chloride (98 - 107 mmol/L) 96 L Carbon Dioxide (22 - 30 mmol/L) 33 H Anion Gap (5 - 16) 9 BUN (7 - 17 mg/dL) 22 H Creatinine (0.5 - 1.0 mg/dL) 0.4 L Estimated GFR (>60 ml/min) > 60 BUN/Creatinine Ratio (7 - 25 %) 55.0 H Glucose (65 - 99 mg/dL) 221 H Calcium (8.4 - 10.2 mg/dL) 9.3 Magnesium (1.6 - 2.3 mg/dL) 1.8 Total Bilirubin (0.2 - 1.3 mg/dL) 0.6 AST (14 - 36 U/L) 22 ALT (9 - 52 U/L) 27 Alkaline Phosphatase (<127 U/L) 54 Troponin I (< 0.11 ng/ml) 0.01 Oxq-V-Vsogrrllenh Pept (<125 pg/mL) 361 H Total Protein (6.3 - 8.2 g/dL) 6.9 Albumin (3.5 - 5.0 g/dL) 3.8 Globulin (1.9 - 4.2 gm/dL) 3.1 Albumin/Globulin Ratio (1.1 - 2.2 %) 1.2 Hematology CBC w Diff NO MAN DIFF REQ WBC (4.8 - 10.8 /CUMM) 12.8 H RBC (4.20 - 5.40 /CUMM) 4.14 L Hgb (12.0 - 16.0 G/DL) 12.3 Hct (37 - 47 %) 38.2 MCV (81.0 - 99.0 FL) 92.4 MCH (27.0 - 31.0 PG) 29.7 RDW (11.5 - 14.5 %) 13.8 Plt Count (130 - 400 /CUMM) 204 MPV (7.4 - 10.4 FL) 9.3 Gran % (42.2 - 75.2 %) 67.8 Lymphocytes % (20.5 - 51.1 %) 20.4 L Monocytes % (1.7 - 9.3 %) 10.0 H Eosinophils % (0 - 5 %) 1.6 Basophils % (0.0 - 2.0 %) 0.2 Absolute Granulocytes (1.4 - 6.5 /CUMM) 8.6 H Absolute Lymphocytes (1.2 - 3.4 /CUMM) 2.6 Absolute Monocytes (0.10 - 0.60 /CUMM) 1.3 H Absolute Eosinophils (0.0 - 0.7 /CUMM) 0.2 Absolute Basophils (0.0 - 0.2 /CUMM) 0 PUBS MCHC (33.0 - 37.0 G/DL) 32.1 L Miscellaneous Phlebotomy Draw Site RIGHT BRACHIAL Microbiology Date/Time Procedure - Status Source Growth 01/18 2259 Legionella Antigen - COMP URINE ROUT 01/18 2259 Streptococcus pneumoniae Antigen (M - COMP URINE ROUT 01/18 1650 Blood Culture - RECD BLOOD 01/18 1637 Blood Culture - RECD BLOOD Chest x-ray 1. Suspect early airspace consolidation inferior lingula. 2. Disc atelectasis right base. Assessment * Community acquired pneumonia * COPD with exacerbation * Elevated WBC count * History diabetes * Hypothyroidism * History of SVT Plan * Continue IV Solu Medrol 40 mg every 12 * Continue oral doxycycline * Await pulmonary consult * Continue oxygen
--- NOTE | 2017-01-19 14:41 | PN- Student ---
Subjective Subjective: History of Present Illness: 82 year old female with past medical history of COPD, hypothyroidism post goiter surgery, SVT, PE not on any anticoagulation and non insulin dependent DM presented to [facility] with complaint of increasing shortness of breath over the past 3 days. Patient is on home oxygen therapy of 6L by nasal canula. Patient follows Dr. Shea as her etiology teacher at COPD clinic. In the ED, patient complained of dyspnea that increased with exertion. Patient stated intermittent cough with proudction of white phlem. patient had been using her nebulizer 4-5 times per day without relief which is what prompted her to come to the ED. In the Ed, patient was afebrile, denied chest pain, palpitations, abdominal pain, sore throat, or change in bowels. Patient was given magnesium, Solu-medrol, and nebulizer in ED and started on BIPAP by respiratory therapist. Patient was given single dose of Moxifloxcin. Ed workup revealed CXR: early airspace consolidation inferior lingula.Disc atelectasis right base. Patient was started on Doxycycline for suspicion of CAP and admitted to medicine floor for monitoring. This morning (01/19/17), patient states she is feeling much better but still gets the shortness of breath and tightness in chest on inspiration. during the interview, patient was on O2 6L by MN. patient states cough has decreased without any productive phlem. patient states she feels at her baseline again. Patient states she used the BIPAP overnight and slept for 2-3 hours. This morning she hasn't used the BIPAP, but continues to use the 6L 02 by MN. patient denies fever, chills, headaches, malaise, n/v, chest pain, abdominal pain, sore throat, anorexia, changes to bowels, or dysuria. 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 History of MRSA: No History of VRE: No History of CDIFF: No Tetanus Vaccine: 08/28/14 Surgical History: cataract removal, hysterectomy Allergies: Coded Allergies: Penicillins (UNKNOWN 12/22/15) amoxicillin (UNKNOWN 12/22/15) azithromycin (UNKNOWN 12/22/15) sulfamethoxazole (From Bactrim) (RASH 12/22/15) trimethoprim (From Bactrim) (RASH 12/22/15) Psychosocial History Services at Home: None Primary Language: Ecuadorean Smoking Status: Former Smoker (1 ppd quit long time ago) ETOH Use: denies use Illicit Drug Use: denies illicit drug use Functional Ability ADLs Independent: dressing, eating, toileting, bathing. Review of Systems Constitutional: Denies: chills, fever. EENTM: Reports: no symptoms. Cardiovascular: Denies: chest pain, palpitations. Respiratory: Reports: short of breath. Denies: cough. GI: Reports: no symptoms. Denies: constipation, diarrhea. Genitourinary: Reports: no symptoms. Musculoskeletal: Reports: no symptoms. Skin: Reports: no symptoms. Neurological/Psychological: Reports: no symptoms. Objective Objective: Exam & Diagnostic Data Physical Exam: general appearance: alert and oriented x3, mood is pleasant and affect appropriate. skin: smooth, warm dry, no excessive thinning or thickening. no tenting. capillary refill is < 2 seconds. no rashes or lesions. head: NC/AT eyes: EOMI, PERRLA, conjunctivae pink, sclerae anicteric. ears: TM's and ear canal NL nose: midline, atraumatic. no lesions or discharge noted. throat: mucosa/tongue NL; oropharynx without erythema or exudates. neck: supple, trachea midline, no thyromegaly or nodules. LN: no cervical, supraclavicular, axillary, or inguinal lymphadenopathy. cardiac: no JVD. no lifts or heaves. PMI 5th ICS in the MCL. s1 and s2 normal. no murmurs, rubs, or gallops heard. chest: decrease in breathe sounds throughout all mejia with mild crepitations in lower mejia. no wheezes. abdomen: symmetric, no masses or lesions. no guarding or rebound tenderness. normal active bowel sounds in all four quadrants. non tender in all four quadrants. no cva tenderness. no hepatosplenomegaly. WOOLING MACHINE OPERATOR: awake and alert. No focal neurological deficit and following commands appropriately. extremities: no edema, no clubbing or cyanosis noted. Intake & Output 01/19 1600 01/19 0800 01/19 0000 Intake Total 600 120 600 Output Total 1050 500 Balance 600 -930 100 Intake, Oral 600 120 600 Number 0 0 Bowel Movements Output, Urine 1050 500 Patient 156 lb Weight Laboratory Tests 01/19 01/18 0630 1700 Blood Gas pH (7.35 - 7.45 PH) 7.41 pCO2 (35 - 45 TORR) 47 H pO2 (80 - 100 TORR) 79 L HCO3 (21 - 28 MEQ/L) 29 H ABG O2 Sat (Measured) (>96.0 %) 95.0 L Carboxyhemoglobin (1.5 - 5.0 %) 1.2 L O2 Concentration % 40% Temperature (97.0 - 100.0 FARH) 98.6 Respiration Rate (BPM) 24 O2 Delivery Method BIPAP Vent Mode ST Expiratory Pressure (CM H2O P) 4 Inspiratory Pressure (CM H2O P) 10 Chemistry Sodium (137 - 145 mmol/L) 140 Potassium (3.5 - 5.1 mmol/L) 4.5 Chloride (98 - 107 mmol/L) 100 Carbon Dioxide (22 - 30 mmol/L) 30 Anion Gap (5 - 16) 10 BUN (7 - 17 mg/dL) 20 H Creatinine (0.5 - 1.0 mg/dL) 0.5 Estimated GFR (>60 ml/min) > 60 BUN/Creatinine Ratio (7 - 25 %) 40.0 H Hematology CBC w Diff NO MAN DIFF REQ WBC (4.8 - 10.8 /CUMM) 11.4 H RBC (4.20 - 5.40 /CUMM) 3.86 L Hgb (12.0 - 16.0 G/DL) 11.6 L Hct (37 - 47 %) 35.7 L MCV (81.0 - 99.0 FL) 92.5 MCH (27.0 - 31.0 PG) 30.2 RDW (11.5 - 14.5 %) 14.2 Plt Count (130 - 400 /CUMM) 191 MPV (7.4 - 10.4 FL) 9.5 Gran % (42.2 - 75.2 %) 78.7 H Lymphocytes % (20.5 - 51.1 %) 13.9 L Monocytes % (1.7 - 9.3 %) 7.1 Eosinophils % (0 - 5 %) 0 Basophils % (0.0 - 2.0 %) 0.3 Absolute Granulocytes (1.4 - 6.5 /CUMM) 9.0 H Absolute Lymphocytes (1.2 - 3.4 /CUMM) 1.6 Absolute Monocytes (0.10 - 0.60 /CUMM) 0.8 H Absolute Eosinophils (0.0 - 0.7 /CUMM) 0 Absolute Basophils (0.0 - 0.2 /CUMM) 0 PUBS MCHC (33.0 - 37.0 G/DL) 32.6 L Miscellaneous Phlebotomy Draw Site RIGHT BRACHIAL Results Results: Laboratory Tests 01/19/17 0630: Anion Gap 10, Estimated GFR > 60, BUN/Creatinine Ratio 40.0 H, CBC w Diff NO MAN DIFF REQ, RBC 3.86 L, MCV 92.5, MCH 30.2, RDW 14.2, MPV 9.5, Gran % 78.7 H , Lymphocytes % 13.9 L, Monocytes % 7.1, Eosinophils % 0, Basophils % 0.3, Absolute Granulocytes 9.0 H, Absolute Lymphocytes 1.6, Absolute Monocytes 0.8 H, Absolute Eosinophils 0, Absolute Basophils 0, PUBS MCHC 32.6 L 01/18/17 1700: pH 7.41, pCO2 47 H, pO2 79 L, HCO3 29 H, ABG O2 Sat (Measured) 95.0 L, Carboxyhemoglobin 1.2 L, O2 Concentration % 40%, Temperature 98.6, Respiration Rate 24, O2 Delivery Method BIPAP, Vent Mode ST, Expiratory Pressure 4, Inspiratory Pressure 10, Phlebotomy Draw Site RIGHT BRACHIAL 01/18/17 1435: pH 7.32 L, pCO2 64 *H, pO2 73 L, HCO3 32 H, ABG O2 Sat (Measured) 92.0 L, P- 50 (Temp Corrected) N, Carboxyhemoglobin 0.7 L, O2 Concentration % 6LPM, O2 Delivery Method NEB TX, Phlebotomy Draw Site RIGHT BRACHIAL 01/18/17 1410: Anion Gap 9, Estimated GFR > 60, BUN/Creatinine Ratio 55.0 H, Glucose 221 H, Calcium 9.3, Magnesium 1.8, Total Bilirubin 0.6, AST 22, ALT 27, Alkaline Phosphatase 54, Troponin I 0.01, Gqn-Q-Vrnxqmjungc Pept 361 H, Total Protein 6.9, Albumin 3.8, Globulin 3.1, Albumin/Globulin Ratio 1.2, CBC w Diff NO MAN DIFF REQ, RBC 4.14 L, MCV 92.4, MCH 29.7, RDW 13.8, MPV 9.3, Gran % 67.8, Lymphocytes % 20.4 L, Monocytes % 10.0 H, Eosinophils % 1.6, Basophils % 0.2, Absolute Granulocytes 8.6 H, Absolute Lymphocytes 2.6, Absolute Monocytes 1.3 H, Absolute Eosinophils 0.2, Absolute Basophils 0, PUBS MCHC 32.1 L Microbiology 01/18 2259 URINE ROUT: Legionella Antigen - COMP 01/18 2259 URINE ROUT: Streptococcus pneumoniae Antigen (M - COMP 01/18 165 BLOOD: Blood Culture - RES 01/18 163 BLOOD: Blood Culture - RES Assessment/Plan Assessment: Assessment/Plan Assessment: 82 year old female with past medical history of COPD, hypothyroidism post goiter surgery, SVT, PE not on any anticoagulation and non insulin dependent DM presented to [facility] with complaint of increasing shortness of breath of 3 days. Vital signs on admission temperature 98.0 pulse 100 respiratory rate 20 blood pressure 110-65 pulse ox 92% ABG pH 7.32 Pco2 64 PO2 73 Bicarb 32 WBC 12.8, BNP 361, HCO3 33, BUN 22 Cr .4 CXR Suspect early airspace consolidation inferior lingula.Disc atelectasis right base. EKG showed LBBB,Rate 62, SD 164, QRS 128, QTC 486 Plan: In the ED, Patient was given magnesium, Solu-medrol, and nebulizer and started on BIPAP by respiratory therapist. Patient was given single dose of Moxifloxcin. Ed workup revealed CXR: early airspace consolidation inferior lingula.Disc atelectasis right base. Patient was started on Doxycycline for suspicion of CAP and admitted to [facility] for further treatment and monitoring. 1. Acute hypoxic respiratory failure secondary to COPD exacerbation: most likely acute COPD exacerbation. in ER, patient was hypoxic and hypercarbic by ABG but repeat ABGs have improved. today, patient is doing better. patient states she feels at her baseline again. on physical exam, lungs sounds were decreased bilaterally at bases with mild crepitations at bases. no wheezing. here is the plan: a) continue IV solu medrol 40 mg every 12 hours b) continue oral doxycycline for CAP c) continue oxygen - nasal canula and BiPAP as needed for stats >92% d) awaiting pulm consult 2. Hypothyroidism status post goiter surgery: patient has hx of hypothyroidism post goiter surgery and is treated with levothyroxine. a) continue home dose of levothyroxine and monitor TSH and T4 levels 3. Sinus Tachycardia: pt has history of SVT. ECG showed QTc interval of 486 in the ED. will continue to monitor and continue metoprolol. 4. Ald-gjqeeex-vdnmdwavk diabetes mellitus
[2017-01-19 15:09] VITALS: BP 100/72
[2017-01-19 22:41] VITALS: BP 112/50
[2017-01-20 06:47] VITALS: BP 112/68
--- NOTE | 2017-01-20 07:24 | Patient Discharge Instructions ---
Discharge Instructions General Discharge Information You were seen/treated for: COPD [facility] aquired pnemonia Watch for these problems: Fever Worsening shortness of breath worsening cough change in sputum color blood in sputum Special Instructions: please follow up with ur pcp please follow up with ur manager apple Complete steroid course Diet Continue normal diet: No Recommended Diet: Diabetic Activity Activity Self Limited: Yes Acute Coronary Syndrome Inclusion Criteria At DC or during hospital stay patient has or had the following: ACS DIAGNOSIS No Discharge Core Measures Meds if any: Prescribed or Continued at Discharge Meds if any: NOT Prescribed or Continued at Discharge Congestive Heart Failure Inclusion Criteria At DC or during hospital stay patient has or had the following: CHF DIAGNOSIS No Discharge Core Measures Meds if any: Prescribed or Continued at Discharge Meds if any: NOT Prescribed or Continued at Discharge Cerebrovascular accident Inclusion Criteria At DC or during hospital stay patient has or had the following: CVA/TIA Diagnosis No Discharge Core Measures Meds if any: Prescribed or Continued at Discharge Meds if any: NOT Prescribed or Continued at Discharge Venous thromboembolism Inclusion Criteria VTE Diagnosis No VTE Type NONE VTE Confirmed by (Test) NONE Discharge Core Measures - Per Current guidelines, there needs to be overlap - treatment for the first 5 days of Warfarin therapy. - If discharged on Warfarin prior to 5 days of - overlap therapy, the patient will need to be - assessed for post discharge needs including - *Post discharge parental anticoagulation - *Warfarin and/or parental anticoagulation education - *Follow up date to check INR post discharge At least 5 days overlap therapy as Inpatient No Meds if any: Prescribed or Continued at Discharge Note: Overlap Therapy is Warfarin and Anticoagulant Meds if any: NOT Prescribed or Continued at Discharge
--- NOTE | 2017-01-20 07:40 | PN- Housestaff ---
Subjective Follow-up For: COPD exacerbation CAP Subjective: I have seen and examined the patient. Patient was sitting comfortably in the bed. She was having breakfast. She says she is back to her baseline on 6L nasal cannula oxygen. She denies any chest pain palpitations or shortness of breath. During her stay she remained afebrile. Her white count today is 10.5. She is being discharged to home. Review of Systems Constitutional: Denies: see HPI. Objective Last 24 Hrs of Vital Signs/I&O Vital Signs Date Time Temp Pulse Resp B/P B/P Pulse O2 O2 Flow FiO2 Mean Ox Delivery Rate 01/20 0800 Nasal 6.0L Cannula 01/20 0740 96 Nasal 6.0L Cannula 01/20 0647 97.7 71 22 112/68 93 Nasal Cannula 01/20 0137 98 98 01/20 0000 Nasal 6.0L Cannula 01/19 2241 98.1 98 24 112/50 93 Nasal 6.0L Cannula 01/19 1600 93 Nasal 6.0L Cannula 01/19 1552 97 Nasal 6.0L Cannula 01/19 1509 97.8 78 20 100/72 99 Intake & Output 01/20 1600 01/20 0800 01/20 0000 Intake Total 120 Output Total 1100 Balance -980 Intake, Oral 120 Number 0 Bowel Movements Output, Urine 1100 Physical Exam General Appearance: Alert, Oriented X3, Cooperative, No Acute Distress Skin: No Rashes, No Breakdown HEENT: Atraumatic Cardiovascular: Normal S1, Normal S2, No Murmurs Lungs: Clear to Auscultation, Normal Air Movement Abdomen: Normal Bowel Sounds, Soft, No Tenderness Neurological: Normal Speech Extremities: No Edema Current Medications: Current Medications Sig/Linnea Start time Last Medication Dose Route Stop Time Status Admin Albuterol Sulfate 3 ML EVERY 4 HRS/AWAKE 01/19 08 AC 01/20 INH 1141 Aspirin Buffered 81 MG DAILY 01/19 1000 AC 01/20 PO 0836 Budesonide/ 2 PUF BID 01/18 2200 AC 01/20 Formoterol Fumarate INH 0835 Doxycycline Hyclate 100 MG BID 01/18 2200 AC 01/20 PO 0836 Enoxaparin Sodium 40 MG DAILY 01/19 1000 AC 01/20 SC 0836 Levothyroxine Sodium 0.075 MG DAILY AC 01/19 07 AC 01/20 PO 0554 Methylprednisolone 40 MG DAILY 01/20 1000 AC IV Methylprednisolone 40 MG Q12 01/19 1000 DC 01/20 IV 0835 Patient Medication 1 ED .STK-MED ONE 01/19 1327 PA Teaching ED 01/19 1328 Tiotropium [place] 1 PUF DAILY 01/19 1000 AC 01/20 INH 0836 Last 24 Hrs of Lab/Bill Results Last 24 Hrs of Labs/Mics: Laboratory Tests 01/20/17 0634: Anion Gap 11, Estimated GFR > 60, BUN/Creatinine Ratio 42.0 H, CBC w Diff NO MAN DIFF REQ, RBC 3.98 L, MCV 91.6, MCH 30.1, RDW 13.9, MPV 9.4, Gran % 83.2 H , Lymphocytes % 11.5 L, Monocytes % 5.1, Eosinophils % 0, Basophils % 0.2, Absolute Granulocytes 8.6 H, Absolute Lymphocytes 1.2, Absolute Monocytes 0.5, Absolute Eosinophils 0, Absolute Basophils 0, PUBS MCHC 32.8 L Assessment/Plan Assessment: This is 82 year old woman with a past medical hsitory of COPD, on home oxygen, 6L lives alone, NIDDM, history of SVT, Hypothyroidism S/P Goiter surgery, on levothyroxine, PE not on any anticoagulation presented to [place] ED with 3 day history of shortness of breath. Pertinent data Vital signs on admission temperature 98.0 pulse 100 respiratory rate 20 blood pressure 110-65 pulse ox 92% ABG pH 7.32 Pco2 64 PO2 73 Bicarb 32 WBC 12.8, BNP 361, HCO3 33, BUN 22 Cr .4 ---CXR Suspect early airspace consolidation inferior lingula.Disc atelectasis right base. EKG showed LBBB,Rate 62, AR 164, QRS 128, QTC 486. Patient was treated as follow In ED, patient was on 6 L nasal cannula and satting 92%. Nebulizer, Solu-Medrol and magnesium were given to her in ED and later started on BIPAP by the respiratory therapist. Pt was given single dose of Moxifloxcin as well. We're admitted her to [facility] for further monitoring and treatment. Acute hypoxic respiratory failure secondary to COPD exacerbation: This was most likely acute COPD exacerbation requiring a BiPAP in ER. She was found to be hypoxic and hypercarbic by ABG. Her repeat ABGs showed improvement. She reamined afebrile with a white count of 10.3 today with suspected airspace consolidation of the inferior lingula. Patient is back to her baseline currently on 6L nasal cannula oxygen. * TRC as necessary * IV Solu-Medrol was started and patient being discharged on steroid taper * With the suspicion of CAP, patient was started on IV doxycycline (patient had allergy to penicillin and azithromycin) and being discharged on oral Doxy twice a day. * Strep and legionella urine antigen negative * Blood cultures negative to date * Follow-up with Dr. Perez Sinus Tachycardia Patient had history of SVT in the past. Pt was given a single dose of Moxifloxicin in ED. QTC interval was 486.continue to monitor * Continue Metoprolol Hypothyroidism status post goiter surgery: Patient has history of hypothyroidism status post goiter surgery. * continue home dose levothyroxine Kgc-xensjrq-jckfzhvpf diabetes mellitus Patient takes Januvia at home. Held Januvia, Slinding Scale Insulin and Accu- checks * continue home dose of Januvia on discharge Problem List: 1. COPD exacerbation 2. Pneumonia Pain Ratin Pain Location: none Pain Goal: Pain 4 or less Pain Plan: none Tomorrow's Labs & Rationales: d/c
[2017-01-20] MEDS ORDERED: PREDNISONE20 M1 PO ×2 (07:52→12:50)
[2017-01-20] MEDS ORDERED: DOXYCYCLINE HY100 M2 PO ×2 (07:55→12:50)
[2017-01-20 08:42] LABS: ABSOLUTE BASOPHIL COUNT 0 /CUMM (0.0-0.2); ABSOLUTE EOSINOPHIL COUNT 0 /CUMM (0.0-0.7); ABSOLUTE GRANULOCYTE CT 8.6 /CUMM (1.4-6.5); ABSOLUTE LYMPH COUNT 1.2 /CUMM (1.2-3.4); ABSOLUTE MONOCYTE COUNT 0.5 /CUMM (0.10-0.60); BASOPHIL % 0.2 % (0.0-2.0); EOSINOPHIL % 0 % (0-5); GRANULOCYTE % 83.2 % (42.2-75.2); HEMATOCRIT 36.4 % (37-47); MEAN CORPUSCULAR HGB 30.1 PG (27.0-31.0); MEAN CORPUSCULAR HGB CONC 32.8 G/DL (33.0-37.0); MEAN CORPUSCULAR VOLUME 91.6 FL (81.0-99.0); MEAN PLATELET VOLUME 9.4 FL (7.4-10.4); PLATELET COUNT 212 /CUMM (130-400); RBC DISTRIBUTION WIDTH 13.9 % (11.5-14.5); RED BLOOD CELL CT 3.98 /CUMM (4.20-5.40)
--- NOTE | 2017-01-20 10:19 | PN- Att Addend ---
Attending Addendum Attending Brief Note Patient seen and examined. Plan of care discussed with the medical team and the patient. Available lab work and radiology test reports were reviewed. Patient feels well and denies any worsening of her difficulty breathing. She denies any recent fever or chills. Denies nausea vomiting or abdominal pain. No reports of diarrhea. Vital Signs Date Time Temp Pulse Resp B/P B/P Pulse O2 O2 Flow FiO2 Mean Ox Delivery Rate 01/20 0740 96 Nasal 6.0L Cannula 01/20 0647 97.7 71 22 112/68 93 Nasal Cannula 01/20 0137 98 98 01/20 0000 Nasal 6.0L Cannula 01/19 2241 98.1 98 24 112/50 93 Nasal 6.0L Cannula 01/19 1600 93 Nasal 6.0L Cannula 01/19 1552 97 Nasal 6.0L Cannula 01/19 1509 97.8 78 20 100/72 99 01/19 1121 97 Nasal 6.0L Cannula Intake & Output 01/20 1600 01/20 0800 01/20 0000 Intake Total 120 Output Total 1100 Balance -980 Intake, Oral 120 Number 0 Bowel Movements Output, Urine 1100 Exam: General: Patient awake alert oriented without any distress CVS: S1 plus S2 without any murmur or gallops Chest: Few scattered crepitation without any wheeze. There is no respiratory distress. Abdomen: Soft nontender, bowel sound present, no guarding or rebound [employer]: Awake alert oriented without any focal neuro deficit and follows command appropriately Extremities: No edema; no clubbing or cyanosis noted Laboratory Tests 01/20 0634 Chemistry Sodium (137 - 145 mmol/L) 141 Potassium (3.5 - 5.1 mmol/L) 4.9 Chloride (98 - 107 mmol/L) 100 Carbon Dioxide (22 - 30 mmol/L) 30 Anion Gap (5 - 16) 11 BUN (7 - 17 mg/dL) 21 H Creatinine (0.5 - 1.0 mg/dL) 0.5 Estimated GFR (>60 ml/min) > 60 BUN/Creatinine Ratio (7 - 25 %) 42.0 H Hematology CBC w Diff Pending WBC Pending RBC Pending Hgb Pending Hct Pending MCV Pending MCH Pending RDW Pending Plt Count Pending MPV Pending Gran % Pending Lymphocytes % Pending Monocytes % Pending Eosinophils % Pending Basophils % Pending Absolute Granulocytes Pending Absolute Lymphocytes Pending Absolute Monocytes Pending Absolute Eosinophils Pending Absolute Basophils Pending PUBS MCHC Pending Urine legionella antigen is negative. Blood cultures so far are negative. Chest x-ray on admission 1. Suspect early airspace consolidation inferior lingula. 2. Disc atelectasis right base. Assessment * Community acquired pneumonia * COPD with exacerbation * Elevated WBC count * History diabetes * Hypothyroidism * History of SVT Plan * Change IV Solu Medrol to oral prednisone and tapered over next 5-7 days * Continue oral doxycycline for 5-7 days * Follow-up with pulmonary as outpatient * Continue oxygen 6 L * Discharge home today * Total time spent in preparation for discharge plan, patient education, and CMR preparation was 35 minutes.
[2017-01-20 10:49] LABS: WHITE BLOOD CELL COUNT 10.3 /CUMM (4.8-10.8)
--- NOTE | 2017-01-20 11:01 | Discharge Summary ---
Visit Information Visit Dates Admission Date: 01/18/17 Discharge Date: 01/20/2017 Hospital Course Course Attending Physician: AALIYAH GALLAGHER,LIBERTY Primary Care Physician: NATE GALLAGHER,MARY Dee Hospital Course: This is 82 year old woman with a past medical hsitory of COPD, on home oxygen, 6L lives alone, NIDDM, history of SVT, Hypothyroidism S/P Goiter surgery, on levothyroxine, PE not on any anticoagulation presented to [place] ED with 3 day history of shortness of breath. Vital signs on admission temperature 98.0 pulse 100 respiratory rate 20 blood pressure 110-65 pulse ox 92% ABG pH 7.32 Pco2 64 PO2 73 Bicarb 32 WBC 12.8, BNP 361, HCO3 33, BUN 22 Cr .4 CXR Suspect early airspace consolidation inferior lingula.Disc atelectasis right base. EKG showed LBBB,Rate 62, [place] 164, QRS 128, QTC 486. In ED, patient was on 6 L nasal cannula and satting 92%. Nebulizer, Solu-Medrol and magnesium were given to her in ED and later started on BIPAP by the respiratory therapist. Pt was given single dose of Moxifloxcin as well. We're admitted her to [facility] for further monitoring and treatment. Patient was treated for the following: Acute hypoxic respiratory failure secondary to COPD exacerbation: This was most likely acute COPD exacerbation requiring a BiPAP in ER. She was found to be hypoxic and hypercarbic by ABG. Her repeat ABGs showed improvement. She remained afebrile with a white count of 10.3 with suspected airspace consolidation of the inferior lingula. Patient is back to her baseline currently on 6L nasal cannula oxygen. * TRC as necessary * IV Solu-Medrol was started and patient being discharged on steroid taper * With the suspicion of CAP, patient was started on IV doxycycline (patient had allergy to penicillin and azithromycin) and being discharged on oral Doxy twice a day. * Strep and legionella urine antigen negative * Blood cultures negative to date * Follow-up with Dr. Perez Sinus Tachycardia Patient had history of SVT in the past. Pt was given a single dose of Moxifloxicin in ED. QTC interval was 486. As such Moxi was d/c and Doxi started. * Continue Metoprolol * f/u with cotton ginner helper Hypothyroidism status post goiter surgery: Patient has history of hypothyroidism status post goiter surgery. * continue home dose levothyroxine Snt-yctvotu-falfpyyba diabetes mellitus * continue home dose of Januvia on discharge Allergies: Coded Allergies: Penicillins (UNKNOWN 12/22/15) amoxicillin (UNKNOWN 12/22/15) azithromycin (UNKNOWN 12/22/15) sulfamethoxazole (From Bactrim) (RASH 12/22/15) trimethoprim (From Bactrim) (RASH 12/22/15) Disposition Summary Disposition Principal Diagnosis: COPD exacerbation Community acquired pneumonia Additional Diagnosis: diabetes Hypothyroidism SVT Discharge Disposition: home health services Discharge Instructions General Discharge Information Code Status: Full Code Patient's Diet: diabetic Patient's Activity: As tolerated Follow-Up Instructions/Appts: Please follow-up with your PCP Please follow-up with your public transit specialist Please complete course of antibiotics Medications at Discharge Discharge Medications: Continue taking these medications: Aspirin (Ecotrin*) 81 MG TABLET.DR 1 Tablet ORAL DAILY Comments: Last Taken: 01/20/17 Time: 9AM Pravastatin Sodium (Pravastatin Sodium) 40 MG TABLET 1 Tablet ORAL DAILY Qty = 90 Comments: NOT GIVEN IN HOSPITAL Sitagliptin Phosphate (Januvia) 100 MG TABLET 1 Tablet ORAL DAILY Qty = 30 Instructions: Reason to Stop at ADM: ISS Comments: NOT TAKEN IN HOSPITAL Levothyroxine Sodium (Levothyroxine Sodium) 75 MCG TABLET 1 Tablet ORAL DAILY Comments: Last Taken: 01/20/17 Time: 6AM Metoprolol Tartrate (Metoprolol Tartrate) 25 MG TABLET 0.5 Tablet ORAL TWICE DAILY Qty = 90 Comments: NOT GIVEN IN HOSPITAL Tiotropium [place] (Spiriva) 18 MCG CAP.W.DEV 1 Capsule Inhale through mouth DAILY Instructions: Reason to Stop at ADM: TRC NEBS Comments: Last Taken: 01/20/17 Time: 9AM Budesonide/Formoterol Fumarate (Symbicort 80-4.5 Mcg Inhaler) 10.2 GM HFA.AER.AD 2 Puff Inhale through mouth TWICE DAILY Days = 30 Comments: Last Taken: 01/20/17 Time: 9AM Albuterol Sulfate (Albuterol Sulfate) 2.5 MG/3 ML VIAL.NEB 3 Milliliters Inhale through mouth Q4H as needed for SHORTNESS OF BREATH Days = 28 Comments: Last Taken: 01/20/17 Time: 8AM Start taking the following new medications: Doxycycline Hyclate (Doxycycline Hyclate) 100 MG CAPSULE 1 Tablet ORAL TWICE DAILY Qty = 10 No Refills Comments: Last Taken: 01/20/17 Time: 9AM Prednisone (Prednisone) 20 MG TABLET 1 Tablet ORAL SEE ADMIN Qty = 10 No Refills Instructions: SEE ARISTEO PEREZ SUMMARY Comments: ON 01/21 TAKE 3.0 TABS ON 01/22 TAKE 2.5 TABS ON 01/23 TAKE 2.0 TABS ON 01/24 TAKE 1.5 TABS ON 01/25 TAKE 1.0 TAB THEN STOP SOLUMEDROL ADMINISTERED Copies To: NATE GALLAGHER,MARY Dee
== END 2017-01-20 13:46 | disposition home health service (06) | DRG 190 ==
LOC: ERH 13:40 → ERHI 16:19 → 2NA 16:19 → ENRESERV 16:49 → ENTRNSPT 17:29 → 2NA 17:44 → CMPTRNSPT 17:45 → ENPENDDIS 01-20 10:47 → 2NA 01-20 13:46
PROVIDERS: Physician Assistant; Student in an Organized Health Care Education/Training Program; ADMIT Hospitalist
DX: J44.0 Chronic obstructive pulmonary disease with (acute) lower respiratory infection (principal); J18.9 Pneumonia, unspecified organism; J96.01 Acute respiratory failure with hypoxia; J96.02 Acute respiratory failure with hypercapnia; I11.0 Hypertensive heart disease with heart failure; E11.9 Type 2 diabetes mellitus without complications; Z99.81 Dependence on supplemental oxygen; I50.32 Chronic diastolic (congestive) heart failure; I47.1 Supraventricular tachycardia; E03.9 Hypothyroidism, unspecified; J44.1 Chronic obstructive pulmonary disease with (acute) exacerbation; Z88.0 Allergy status to penicillin; Z88.2 Allergy status to sulfonamides; Z90.710 Acquired absence of both cervix and uterus
CPT/HCPCS: 2NASP; 36415; 82436; 87040; 87449; 87450; 93005; 93010; 96374; 96375; 99291; J1650; J2920; J2930; J3490

== ENCOUNTER 2017-09-13 13:47 | Inpatient (IN) | payer OTHER, MEDICARE ==
[~2017-09-13] VITALS: Ht 162.6 cm; Wt 73.7 kg
[~2017-09-13 13:47] MED LIST changes: +DELTASONE20 MG PO; +DOXYCYCLINE HY100 M2 PO; +IPRAT-ALBUT 0.5-3 ML INH; +LIDODERM1 EACH EXT; +PREDNISONE20 M1 PO; +TYLENOL WITH C1 EACH PO; +TYLENOL325 M1 PO
--- NOTE | 2017-09-13 14:16 | ED DYSPNEA/ASTHMA COMPLAINT ---
History of Present Illness General Chief Complaint: General Adult Stated Complaint: PAIN UNDER BREAST RADIATING TO BACK ON LEFT SIDE Source: patient, family, old records Exam Limitations: no limitations Vital Signs & Intake/Output Vital Signs & Intake/Output Vital Signs Date Time Temp Pulse Resp B/P B/P Pulse O2 O2 Flow FiO2 Mean Ox Delivery Rate 09/14 2259 98.4 84 22 114/60 95 09/14 2026 104 122/74 09/14 1604 98 Nasal 5.0L Cannula 09/14 1433 98.6 104 22 124/56 94 Nasal 5.0L Cannula 09/14 1213 Nasal 5.0L Cannula 09/14 0818 87 120/60 09/14 0815 Room Air 6.0L 09/14 0708 98.4 87 20 120/60 97 Nasal 7.0L Cannula ED Intake and Output 09/15 0000 09/14 1200 Intake Total 700 260 Output Total 775 Balance -75 260 Intake, Oral 700 260 Number 1 Bowel Movements Output, Urine 775 Patient 143 lb Weight Allergies Coded Allergies: Penicillins (UNKNOWN 12/22/15) amoxicillin (UNKNOWN 12/22/15) azithromycin (UNKNOWN 12/22/15) sulfamethoxazole (From Bactrim) (RASH 12/22/15) trimethoprim (From Bactrim) (RASH 12/22/15) Reconcile Medications Acetaminophen (Tylenol) 325 MG TABLET 2 TAB PO Q6P PRN PAIN Albuterol Sulfate 2.5 MG/3 ML VIAL.NEB 3 ML INH Q4H PRN SHORTNESS OF BREATH Aspirin (Ecotrin*) 81 MG TABLET.DR 1 TAB PO DAILY HEART HEALTH (Reported) Dont take aspirin on tue,tue and tuesday(06/03-06/05) before the Vertebroplasty.Can resume afterwards depending on 's recommendations. Budesonide/Formoterol Fumarate (Symbicort 80-4.5 Mcg Inhaler) 10.2 GM HFA.AER.AD 2 PUF INH BID COPD (Reported) Cephalexin 250 MG CAPSULE 1 CAP PO DAILY UTI PREVENTION (Reported) Ipratropium/Albuterol Sulfate (Iprat-Albut 0.5-3(2.5) MG/3 Ml) 0.5 MG-3 MG (2.5 MG BASE)/3 ML AMPUL.NEB 1 VIAL INH Q6 PRN COPD FOR ACUTE COPD EXACERBATION ICD9 CODE J44.9 Levothyroxine Sodium 75 MCG TABLET 1 TAB PO DAILY THYROID (Reported) Lidocaine (Lidoderm) 5 % ADH..PATCH 1 PAT EXT DAILY Back Pain Metoprolol Tartrate 25 MG TABLET 0.5 TAB PO BID SVT (Reported) Pravastatin Sodium 40 MG TABLET 1 TAB PO DAILY CHOLESTEROL (Reported) Prednisone (Deltasone) 20 MG TABLET 3 TAB PO DAILY WHEEZING BEGIN TOMORROW Sitagliptin Phosphate (Januvia) 100 MG TABLET 1 TAB PO DAILY DIABETES ( Reported) Reason to Stop at ADM: ISS Tiotropium Calhoun (Spiriva) 18 MCG CAP.W.DEV 1 CAP INH DAILY COPD (Reported) Reason to Stop at ADM: [facility] NEBS Triage Note: 82 YEAR OLD FEMALE TO ER WITH HER FAMILY COMPLAINS OF L SIDE CP INTERMITTANT FOR THE PAST 2 WEEKS AND INCREASES WITH DEEP INSPIRATION, PT IS 5L O2 DEPENDENT DUE TO COPD AND O2 SAT 92 % ON THE 5L. Triage Nurses Notes Reviewed? yes Onset: Abrupt Duration: day(s):, constant, continues in ED Timing: recent history Severity: moderate, severe Activities at Onset: none HPI: 82-year-old female comes into the emergency room with increasing shortness of breath and left-sided chest pain in her rib area. Symptoms of a going on for the past few days getting progressively worse. Some associated coughing. Denies any fever or vomiting. She is on 5 L of oxygen normally. She has COPD. She comes in for further evaluation with family. (Jourdan EDEN,Hang) Past History Travel History Traveled to [place] past 21 day No Medical History Any Pertinent Medical History? 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 BROTHER (colon cancer). Hx Contributory? No (Hang Keith) Review of Systems Review of Systems Constitutional: Reports: no symptoms. EENTM: Reports: no symptoms. Respiratory: Reports: see HPI. Cardiovascular: Reports: see HPI. GI: Reports: no symptoms. Genitourinary: Reports: no symptoms. Musculoskeletal: Reports: no symptoms. Skin: Reports: no symptoms. Neurological/Psychological: Reports: no symptoms. Hematologic/Endocrine: Reports: no symptoms. Immunologic/Allergic: Reports: no symptoms. All Other Systems: Reviewed and Negative (Hang Keith) Physical Exam Physical Exam General Appearance: alert, awake, moderate distress, thin Head: atraumatic Eyes: Bilateral: normal appearance. Ears, Nose, Throat: normal ENT inspection, hearing grossly normal Neck: normal inspection Respiratory: respiratory distress (moderate) Cardiovascular: regular rate/rhythm, tachycardia Extremities: normal inspection Neurologic/Psych: awake, alert, oriented x 3 Skin: intact, normal color Core Measures ACS in differential dx? Yes CVA/TIA Diagnosis No Sepsis Present: No Sepsis Focused Exam Completed? No (Hang Keith) Progress Differential Diagnosis: asthma, AMI, bronchitis, costochondritis, CHF, COPD, musculoskeletal pain, pericarditis, pulmonary embolism, pneumonia, pneumothorax, rib fracture, unstable angina Plan of Care: Orders Procedure Date/time Status CBC WITHOUT DIFFERENTIAL 09/15 0600 Active BASIC ELECTROLYTES PLUS BUN&CR 09/15 0600 Active CULTURE,URINE 09/14 1418 Active URINALYSIS 09/14 1418 Complete RT: Evaluation 09/14 1207 Active Change service to 09/14 0720 Active THERAPIST ORDERS 09/14 UNK Complete MISSING MEDICATION FORM 09/14 UNK Active Current Medications Sig/Linnea Start time Last Medication Dose Stop Time Status Admin Pravastatin Sodium 20 MG 1700 09/14 1700 AC 09/14 (Pravachol) 1632 Albuterol Sulfate 3 ML EVERY 4 HRS/AWAKE 09/14 1600 AC 09/14 (Proventil) 1553 Aspirin Buffered 81 MG DAILY 09/14 1000 AC 09/14 (Ecotrin) 0821 Cephalexin 250 MG DAILY 09/14 1000 AC 09/14 (Keflex) 09/15 0959 0818 Enoxaparin Sodium 40 MG DAILY 09/14 1000 AC 09/14 (Lovenox) 0818 Methylprednisolone 40 MG Q12 09/14 1000 AC 09/14 (Solumedrol) 2220 Polyethylene Glycol 17 GM DAILY 09/14 1000 AC 09/14 (Miralax) 0820 Tiotropium Calhoun 1 PUF DAILY 09/14 1000 AC 09/14 (Spiriva) 0820 Insulin Aspart 0 TIDAC 09/14 0800 AC 09/14 (NovoLOG) 1746 Levothyroxine Sodium 0.075 MG DAILY AC 09/14 0700 AC 09/14 (Synthroid) 0623 Budesonide/ 2 PUF BID 09/13 2200 AC 09/14 Formoterol Fumarate 2220 (SYMBICORT) Insulin Aspart 0 AT BEDTIME 09/13 2200 AC (NovoLOG) Metoprolol Tartrate 12.5 MG BID 09/13 2200 AC 09/14 (Lopressor) 202 Ketorolac 15 MG Q6-PRN PRN 09/13 2100 AC Tromethamine (Toradol) Acetaminophen 650 MG Q4P PRN 09/13 2045 AC 09/13 (Tylenol) 205 Lidocaine 1 PAT DAILY 09/13 2030 AC 09/14 (Lidoderm) 1104 Laboratory Tests 09/14/17 2235: Urine Color YEL, Urine Clarity CLEAR, Urine pH 7.0, Ur Specific Tyler 1.015, Urine Protein NEG, Urine Ketones NEG, Urine Nitrite NEG, Urine Bilirubin NEG, Urine Urobilinogen 0.2, Ur Leukocyte Esterase NEG, Ur Microscopic EXAM NOT REQUIRED, Urine Hemoglobin NEG, Urine Glucose 100 H Microbiology 09/14 1418 URINE ROUT: Urine Culture - COLB Diagnostic Imaging: Viewed by Me: Radiology Read, CT Scan. Discussed w/RAD: Radiology Read, CT Scan. Radiology Impression: PATIENT: MARQUITA TREVINO PRESENT AGE: 82 PATIENT ACCOUNT NO: [id number] : 36 LOCATION: [facility] ORDERING PHYSICIAN: Hang EDEN SERVICE DATE: 09/13/17 EXAM TYPE : RAD - XRY-PORTABLE CHEST XRAY EXAMINATION: XR PORTABLE CHEST CLINICAL INFORMATION: Chest pain. COMPARISON: Multiple prior chest x-rays, the most recent on 06/06/2017. TECHNIQUE: Portable frontal view of the chest was obtained. FINDINGS: The cardiac size and mediastinal silhouette are stable and within normal limits. Prominence of the edwige noted, fairly similar to prior exams and could be vascular in origin and represent some degree of pulmonary arterial hypertension. The lung bases and the costophrenic angles are not completely included in this x-ray. There is opacity in the right lower lung with obscuration of right diaphragmatic border. This can represent right-sided pleural effusion and adjacent atelectasis. No pneumothorax. The visualized bones are unremarkable. IMPRESSION: Limited exam. Right-sided pleural effusion and adjacent pulmonary opacity, most likely atelectasis. Clinical correlation for superimposed pneumonia is suggested. DICTATED BY: Franky Estrada MD DATE/TIME DICTATED:09/13/171438 TOLL TEST DESK WORKER:MARLON DATE/TIME TRANSCRIBED:1438 CONFIDENTIAL, DO NOT COPY WITHOUT APPROPRIATE AUTHORIZATION. < Electronically signed in Other Vendor System> SIGNED BY: Franky Estrada MD 09/13/17 1505, PATIENT: MARQUITA TREVINO PRESENT AGE: 82 PATIENT ACCOUNT NO: [id number] : 36 LOCATION: [facility] ORDERING PHYSICIAN: Hang EDEN SERVICE DATE: 09/13/17 EXAM TYPE: CAT - CTA CHEST- PULMONARY EMBOLISM EXAMINATION: CT ANGIOGRAM OF THE CHEST WITH CONTRAST (CT PULMONARY ANGIOGRAM FOR PE) CLINICAL INFORMATION: Shortness of breath and left rib pain COMPARISON: 05/30/2017 TECHNIQUE: Prior to contrast administration, noncontrast localization images were obtained. Subsequently, multidetector volumetric imaging was performed from the thoracic inlet to below the diaphragms following the administration of 60 mL Optiray 350 intravenous contrast. No contrast reaction reported. Sagittal, coronal, and MIP oblique sagittal reformatted images were obtained on the CT workstation, uploaded to PACS, and reviewed. DLP: Total exam dose-length product 380 mGy-cm FINDINGS: QUALITY OF STUDY/CONTRAST BOLUS: Satisfactory. PULMONARY ARTERIES: Pulmonary arteries are normal in size. No embolic filling defects are identified within the main, lobar or segmental vessels. THORACIC AORTA: There is atherosclerotic calcification of the thoracic aorta without aneurysm or dissection. LUNGS AND PLEURA: Severe centrilobular emphysema. No acute pulmonary edema, consolidation, pneumothorax or pleural effusion. 0.7 x 1.1 x 0.8 cm nodule in the medial aspect of the superior segment of the right lower lobe is unchanged in size compared to 2016. It is new compared to 12/23/2015. CARDIOVASCULAR: [id number] atherosclerotic calcification of coronary arteries. The heart size is normal. No inward bowing of the interventricular septum. No pericardial effusion. MEDIASTINUM: The esophagus has normal wall thickness. 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 Left thyroid lobe is mildly enlarged, heterogeneous and multinodular in appearance. LYMPHATICS: A mildly enlarged, 1 cm lymph node of the posterior right hilum is stable compared to 05/30/2017 and new compared to 12/23/2015 ( image 243, series 2). A 1.6 cm lymph node located anterior to the SVC and lateral to the ascending aorta is new compared to 12/23/2015 and unchanged compared to 05/30/2017. UPPER ABDOMEN: Adrenal glands are unremarkable. No reflux of contrast into the IVC. OSSEOUS STRUCTURES: No aggressive osseous lesions. There are several old, healed rib fractures. Also, there is a recent, mildly displaced fracture of the left posterolateral sixth rib and recent, moderately displaced fracture of the left lateral seventh rib. Bones appear diffusely osteoporotic. Multiple thoracic vertebra exhibit mild height loss. Chronic, severe compression fracture of T7 vertebral body. Interval mild worsening of the compression fracture deformity of the T8 vertebral body. Bone island of T11. IMPRESSION: 1. No pulmonary embolism. 2. Severe pulmonary emphysema. 3. 0.7 x 1.1 x 0.8 cm nodule of the right lower lobe remains suspicious for carcinoma; it is new compared to 12/23/2015. Also, the right hilar and mediastinal lymphadenopathy are new compared to 12/23/2015. 3. There are recent, displaced fractures of left sixth and seventh ribs. 4. Diffuse osteoporosis. Findings within the degenerated spine include severe compression fracture of the T7 vertebral body and worsening compression fracture deformity of the T8 vertebral body. DICTATED BY: Jose Aceves MD DATE/TIME DICTATED:1657 TOLL TEST DESK WORKER:MARLNO DATE/TIME TRANSCRIBED:09/13/171657 CONFIDENTIAL, DO NOT COPY WITHOUT APPROPRIATE AUTHORIZATION. <Electronically signed in Other Vendor System> SIGNED BY: Jose Aceves MD 09/13/17 7301 Initial ED EKG: normal sinus rhythm, rate (135), LBBB (Hang Keith) Departure Departure Disposition: STILL A PATIENT Condition: Stable Clinical Impression Primary Impression: Respiratory failure Secondary Impressions: COPD exacerbation, Pneumonia Referrals: Stacy Henderson MD (PCP/Family) Departure Forms: Customer Survey General Discharge Information Admission Note Spoke With: Tierra Lucero MD Documentation of Exam: Documentation of any treatments & extenuating circumstances including Concerns Regarding Discharge (functional status, medication knowledge or non-compliance, living conditions, etc.) that warrant an admission rather than observation: Patient will require IV antibiotics. cardiac telemetry. serial troponins troponins. iv steroids. Pulmonary consultation. High risk. Did not improve here in the emergency room. Still tachypnea can short of breath. (Hang Keith) PA/DIE SINKER APPRENTICE Co-Sign Statement Statement: ED Attending supervision documentation- [x] I saw and evaluated the patient. I have also reviewed all the pertinent lab results and diagnostic results. I agree with the findings and the plan of care as documented in the PA's/DIE SINKER APPRENTICE's documentation. [x] I have reviewed the ED Record and agree with the PA's/DIE SINKER APPRENTICE's documentation. [] Additions or exceptions (if any) to the PAs/DIE SINKER APPRENTICE's note and plan are summarized below: [] PATIETN SEEN AND EXAMINED WITH [facility] [place]. H/O COPD, RESPIRATORY DISTRESS, TACHYCARDIA. CT ANIOGRAM NEG FOR PE. NEEDS ADMISSION FOR TRC/NEBS, IV STEROIDS , PULMONARY EVALUATION. (Juan Pablo GALLAGHER,Neha) Critical Care Note Critical Care Note Critical Care Time: 30-74 min (45) (Hang Keith) Globulin 3.3, Albumin/Globulin Ratio 1.2, PT 12.5, INR 1.15, APTT 30, D-Dimer High Sensitivty 301 H, CBC w Diff NO MAN DIFF REQ, RBC 4.14 L, MCV 94.8, MCH 30.9, MCHC 32.6 L, RDW 13.6, MPV 8.2, Gran % 64.2, Lymphocytes % 24.0, Monocytes % 9.8 H, Eosinophils % 1.7, Basophils % 0.3, Absolute Granulocytes 7.2 H, Absolute Lymphocytes 2.7, Absolute Monocytes 1.1 H, Absolute Eosinophils 0.2, Absolute Basophils 0 09/13/17 1414: PT Cancelled, INR Cancelled, APTT Cancelled Microbiology 09/13 1630 NASOPHARYN: Influenza Virus A & B Rapid Smear - COMP 09/13 1626 BLOOD: Blood Culture - RECD 09/13 1535 BLOOD: Blood Culture - RECD (Neha Almeida MD) Departure Departure Disposition: STILL A PATIENT Condition: Stable Clinical Impression Primary Impression: Respiratory failure Secondary Impressions: COPD exacerbation, Pneumonia Referrals: Stacy Henderson MD (PCP/Family) Departure Forms: Customer Survey General Discharge Information Admission Note Spoke With: Tierra Lucero MD Documentation of Exam: Documentation of any treatments & extenuating circumstances including Concerns Regarding Discharge (functional status, medication knowledge or non-compliance, living conditions, etc.) that warrant an admission rather than observation: Patient will require IV antibiotics. cardiac telemetry. serial troponins troponins. iv steroids. Pulmonary consultation. High risk. Did not improve here in the emergency room. Still tachypnea can short of breath. (Hang Keith) PA/DIE SINKER APPRENTICE Co-Sign Statement Statement: ED Attending supervision documentation- [x] I saw and evaluated the patient. I have also reviewed all the pertinent lab results and diagnostic results. I agree with the findings and the plan of care as documented in the PA's/DIE SINKER APPRENTICE's documentation. [x] I have reviewed the ED Record and agree with the PA's/DIE SINKER APPRENTICE's documentation. [] Additions or exceptions (if any) to the PAs/DIE SINKER APPRENTICE's note and plan are summarized below: [] (Neha Almeida MD) Critical Care Note Critical Care Note Critical Care Time: 30-74 min (45) (Hang Keith)
[2017-09-13 14:59] LABS: ABSOLUTE BASOPHIL COUNT 0 /CUMM (0.0-0.2); ABSOLUTE EOSINOPHIL COUNT 0.2 /CUMM (0.0-0.7); ABSOLUTE GRANULOCYTE CT 7.2 /CUMM (1.4-6.5); ABSOLUTE LYMPH COUNT 2.7 /CUMM (1.2-3.4); ABSOLUTE MONOCYTE COUNT 1.1 /CUMM (0.10-0.60); BASOPHIL % 0.3 % (0.0-2.0); EOSINOPHIL % 1.7 % (0-5); GRANULOCYTE % 64.2 % (42.2-75.2); HEMATOCRIT 39.2 % (37-47); MEAN CORPUSCULAR HGB 30.9 PG (27.0-31.0); MEAN CORPUSCULAR HGB CONC 32.6 G/DL (33.0-37.0); MEAN CORPUSCULAR VOLUME 94.8 FL (81.0-99.0); MEAN PLATELET VOLUME 8.2 FL (7.4-10.4); PLATELET COUNT 268 /CUMM (130-400); RBC DISTRIBUTION WIDTH 13.6 % (11.5-14.5); RED BLOOD CELL CT 4.14 /CUMM (4.20-5.40); WHITE BLOOD CELL COUNT 11.2 /CUMM (4.8-10.8)
--- NOTE | 2017-09-13 15:05 | RADIOLOGY REPORT ---
EXAMINATION: XR PORTABLE CHEST CLINICAL INFORMATION: Chest pain. COMPARISON: Multiple prior chest x-rays, the most recent on 06/06/2017. TECHNIQUE: Portable frontal view of the chest was obtained. FINDINGS: The cardiac size and mediastinal silhouette are stable and within normal limits. Prominence of the edwige noted, fairly similar to prior exams and could be vascular in origin and represent some degree of pulmonary arterial hypertension. The lung bases and the costophrenic angles are not completely included in this x-ray. There is opacity in the right lower lung with obscuration of right diaphragmatic border. This can represent right-sided pleural effusion and adjacent atelectasis. No pneumothorax. The visualized bones are unremarkable. IMPRESSION: Limited exam. Right-sided pleural effusion and adjacent pulmonary opacity, most likely atelectasis. Clinical correlation for superimposed pneumonia is suggested.
[2017-09-13 15:28] LABS: PT 12.5 SEC (9.4-12.5); PTT 30 SEC (25-37)
--- NOTE | 2017-09-13 17:23 | CT SCAN REPORT ---
EXAMINATION: CT ANGIOGRAM OF THE CHEST WITH CONTRAST (CT PULMONARY ANGIOGRAM FOR PE) CLINICAL INFORMATION: Shortness of breath and left rib pain COMPARISON: 05/30/2017 TECHNIQUE: Prior to contrast administration, noncontrast localization images were obtained. Subsequently, multidetector volumetric imaging was performed from the thoracic inlet to below the diaphragms following the administration of 60 mL Optiray 350 intravenous contrast. No contrast reaction reported. Sagittal, coronal, and MIP oblique sagittal reformatted images were obtained on the CT workstation, uploaded to PACS, and reviewed. DLP: Total exam dose-length product 380 mGy-cm FINDINGS: QUALITY OF STUDY/CONTRAST BOLUS: Satisfactory. PULMONARY ARTERIES: Pulmonary arteries are normal in size. No embolic filling defects are identified within the main, lobar or segmental vessels. THORACIC AORTA: There is atherosclerotic calcification of the thoracic aorta without aneurysm or dissection. LUNGS AND PLEURA: Severe centrilobular emphysema. No acute pulmonary edema, consolidation, pneumothorax or pleural effusion. 0.7 x 1.1 x 0.8 cm nodule in the medial aspect of the superior segment of the right lower lobe is unchanged in size compared to 05/30/2017. It is new compared to 12/23/2015. CARDIOVASCULAR: Zlom-qa-smqqfsce atherosclerotic calcification of coronary arteries. The heart size is normal. No inward bowing of the interventricular septum. No pericardial effusion. MEDIASTINUM: The esophagus has normal wall thickness. 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 Left thyroid lobe is mildly enlarged, heterogeneous and multinodular in appearance. LYMPHATICS: A mildly enlarged, 1 cm lymph node of the posterior right hilum is stable compared to 05/30/2017 and new compared to 12/23/2015 (image 243, series 2). A 1.6 cm lymph node located anterior to the SVC and lateral to the ascending aorta is new compared to 12/23/2015 and unchanged compared to 05/30/2017. UPPER ABDOMEN: Adrenal glands are unremarkable. No reflux of contrast into the IVC. OSSEOUS STRUCTURES: No aggressive osseous lesions. There are several old, healed rib fractures. Also, there is a recent, mildly displaced fracture of the left posterolateral sixth rib and recent, moderately displaced fracture of the left lateral seventh rib. Bones appear diffusely osteoporotic. Multiple thoracic vertebra exhibit mild height loss. Chronic, severe compression fracture of T7 vertebral body. Interval mild worsening of the compression fracture deformity of the T8 vertebral body. Bone island of T11. IMPRESSION: 1. No pulmonary embolism. 2. Severe pulmonary emphysema. 3. 0.7 x 1.1 x 0.8 cm nodule of the right lower lobe remains suspicious for carcinoma; it is new compared to 12/23/2015. Also, the right hilar and mediastinal lymphadenopathy are new compared to 12/23/2015. 3. There are recent, displaced fractures of left sixth and seventh ribs. 4. Diffuse osteoporosis. Findings within the degenerated spine include severe compression fracture of the T7 vertebral body and worsening compression fracture deformity of the T8 vertebral body.
--- NOTE | 2017-09-13 18:48 | History & Physical ---
Shweta GLALAGHER,[facility] 09/13/17 1846: General Information and [facility] MD Statement: I have seen and personally examined MARQUITA TREVINO and documented this H&P. The patient is a 82 year old F who presented with a patient stated chief complaint of [Left sided chest/rib pain and shortness of breath]. Source of Information: patient, family Exam Limitations: no limitations History of Present Illness: The patient is an 82-year-old woman with a past medical history of COPD on home oxygen 5-6L, NIDDM, history of SVT, Hypothyroidism S/P Goiter surgery, on levothyroxine, and pulmonary embolism was sent in from the COPD clinic on account of a 2-week history of worsening shortness of breath with left-sided chest pain. Patient noticed progressively worsening shortness of breath that started 2 weeks ago. She also noted some mild wheeze and intermittent cough productive of clear and yellowish sputum. She denies fevers or chills or sore throat. However she did note some mild nasal congestion over the past few days. Her symptoms did not improve with use of her bronchodilator inhalers and nebulizers. About the same time the patient also developed left-sided lower chest/rib pain which was 5 /10 intensity and radiated to her back. The pain was worsened by inspiration and movement. She had no relief with Tylenol or Advil use. The patient expressly denied history of trauma. On account of worsening shortness of breath the patient called her filament tester Dr. Adam yesterday and he recommended she go to the COPD clinic. She went to the clinic today and her symptoms did not improve so she was sent to the ER for evaluation. She denies other chest discomfort, palpitations or lightheadedness at this time. She denies nausea, vomiting or diarrhea or blood in stools but does admit to constipation. Of note patient has had significant weight loss of about 47 pounds over the past 1 year and 5 pounds in the last 3 months. She was admitted in [facility] in May 2017 for back pain from compression fracture of a vertebral spine was scheduled for vertebroplasty but reportedly this was cancelled on account of her poor respiratory status. She has urge incontinence and sees urologist, Dr. Castillo. Allergies/Medications Allergies: Coded Allergies: Penicillins (UNKNOWN 12/22/15) amoxicillin (UNKNOWN 12/22/15) azithromycin (UNKNOWN 12/22/15) sulfamethoxazole (From Bactrim) (RASH 12/22/15) trimethoprim (From Bactrim) (RASH 12/22/15) Home Med list Acetaminophen (Tylenol) 325 MG TABLET 2 TAB PO Q6P PRN PAIN Albuterol Sulfate 2.5 MG/3 ML VIAL.NEB 3 ML INH Q4H PRN SHORTNESS OF BREATH Aspirin (Ecotrin*) 81 MG TABLET.DR 1 TAB PO DAILY HEART HEALTH (Reported) Dont take aspirin on tue,tue and tuesday(06/03-06/05) before the Vertebroplasty.Can resume afterwards depending on 's recommendations. Budesonide/Formoterol Fumarate (Symbicort 80-4.5 Mcg Inhaler) 10.2 GM HFA.AER.AD 2 PUF INH BID COPD (Reported) Cephalexin 250 MG CAPSULE 1 CAP PO DAILY UTI PREVENTION (Reported) Ipratropium/Albuterol Sulfate (Iprat-Albut 0.5-3(2.5) MG/3 Ml) 0.5 MG-3 MG (2.5 MG BASE)/3 ML AMPUL.NEB 1 VIAL INH Q6 PRN COPD FOR ACUTE COPD EXACERBATION ICD9 CODE J44.9 Levothyroxine Sodium 75 MCG TABLET 1 TAB PO DAILY THYROID (Reported) Lidocaine (Lidoderm) 5 % ADH..PATCH 1 PAT EXT DAILY Back Pain Metoprolol Tartrate 25 MG TABLET 0.5 TAB PO BID SVT (Reported) Pravastatin Sodium 40 MG TABLET 1 TAB PO DAILY CHOLESTEROL (Reported) Prednisone (Deltasone) 20 MG TABLET 3 TAB PO DAILY WHEEZING BEGIN TOMORROW Sitagliptin Phosphate (Januvia) 100 MG TABLET 1 TAB PO DAILY DIABETES ( Reported) Reason to Stop at ADM: ISS Tiotropium [place] (Spiriva) 18 MCG CAP.W.DEV 1 CAP INH DAILY COPD (Reported) Reason to Stop at ADM: TRC NEBS Past History Travel History Traveled to [place] past 21 day No Medical History Neurological: NONE EENT: NONE Cardiovascular: NONE Respiratory: COPD, On 6L oxygen Gastrointestinal: NONE Hepatic: NONE Renal: NONE Musculoskeletal: NONE Psychiatric: NONE Endocrine: hypothyroidism, DM Blood Disorders: NONE Cancer(s): NONE MASCARA MOLDER/Reproductive: HYSTERECTOMY History of MRSA: No History of VRE: No History of CDIFF: No Tetanus Vaccine: 08/28/14 Surgical History Surgical History: cataract removal, hysterectomy, THYROIDECTOMY Past Family/Social History Family History Relations & Conditions if any MOTHER FHx: diabetes mellitus SISTER (breast cancer). BROTHER (colon cancer). Psychosocial History Where do you live? Home Who Do You Live With? self Services at Home: None Primary Language: Slovak Smoking Status: Former Smoker (60 packyear smoker. Quit 2012) ETOH Use: denies use Illicit Drug Use: denies illicit drug use Functional Ability ADLs Independent: dressing, eating, toileting, bathing. Ambulation: independent Review of Systems Review of Systems Constitutional: Reports: see HPI. Denies: chills, fever, malaise, weakness. EENTM: Reports: nasal congestion. Denies: double vision, ear pain. Cardiovascular: Denies: edema. Genitourinary: Reports: frequency. Denies: dysuria. Exam & Diagnostic Data Last 24 Hrs of Vital Signs/I&O Vital Signs Date Time Temp Pulse Resp B/P B/P Pulse O2 O2 Flow FiO2 Mean Ox Delivery Rate 09/13 1951 98.2 123 24 141/64 92 Nasal 5.0L Cannula 09/13 1719 98.1 09/13 1718 91 Nasal 5.0L Cannula 09/13 1708 130 28 155/66 89 Nasal 5.0L Cannula 09/13 1636 150 24 157/93 91 Nasal 5.0L Cannula 09/13 1600 922 Nasal 5.0L Cannula 09/13 1516 92 Nasal 5.0L Cannula 09/13 1514 90 Nasal 5.0L Cannula 09/13 1438 92 Nasal 5.0L Cannula 09/13 1350 98.1 106 22 122/69 92 Nasal 5.0L Cannula Intake & Output 09/13 1600 09/13 0800 09/13 0000 Intake Total Output Total Balance Patient 137 lb Weight Physical Exam General Appearance Alert, Oriented X3, Cooperative, No Acute Distress, Mild Distress Skin No Rashes, No Breakdown Skin Temp/Moisture Exam: Warm/Dry Sepsis Skin Exam (color): Normal for Ethnicity HEENT Atraumatic, PERRLA, EOMI, Mucous Membr. moist/pink Neck Supple, No JVD, No thryomegaly, +2 Carotid Pulse wo Bruit Lymphatic Cervical nl Cardiovascular Regular Rate, Normal S1, Normal S2, No Murmurs Lungs Reduced air entry in entire bilateral lungs and coarse crepitations in right lung base., Tenderness over left costal/rib margins, no erythema or deformity noted Abdomen Normal Bowel Sounds, Soft, No Tenderness, No Hepatospenomegaly, No Masses Neurological Normal Speech, Strength at 5/5 X4 Ext, Normal Tone, Cranial Nerves 3-12 NL Extremities No Cyanosis, No Edema Last 24 Hrs of Labs/Bill: Laboratory Tests 09/13/17 1720: pH 7.36, pCO2 54 H, pO2 63 L, HCO3 29 H, ABG O2 Sat (Measured) 91.0 L, P-50 (Temp Corrected) 98.1, Carboxyhemoglobin 0.5 L, O2 Concentration % 6L, Temperature 98.1, O2 Delivery Method NC, Phlebotomy Draw Site RIGHT RADIAL 09/13/17 1714: Lactic Acid Cancelled 09/13/17 1446: Lactic Acid 1.0 09/13/17 1446: Anion Gap 12, Estimated GFR > 60, BUN/Creatinine Ratio 60.0 H, Glucose 106 H, Calcium 10.2, Total Bilirubin 0.6, AST 21, ALT 23, Alkaline Phosphatase 67, Troponin I 0.01, Jxf-H-Dlzdlkfchwt Pept 465 H, Total Protein 7.4, Albumin 4.1, Globulin 3.3, Albumin/Globulin Ratio 1.2, PT 12.5, INR 1.15, APTT 30, D-Dimer High Sensitivty 301 H, CBC w Diff NO MAN DIFF REQ, RBC 4.14 L, MCV 94.8, MCH 30.9, MCHC 32.6 L, RDW 13.6, MPV 8.2, Gran % 64.2, Lymphocytes % 24.0, Monocytes % 9.8 H, Eosinophils % 1.7, Basophils % 0.3, Absolute Granulocytes 7.2 H, Absolute Lymphocytes 2.7, Absolute Monocytes 1.1 H, Absolute Eosinophils 0.2, Absolute Basophils 0 09/13/17 1414: PT Cancelled, INR Cancelled, APTT Cancelled Microbiology 09/13 1630 NASOPHARYN: Influenza Virus A & B Rapid Smear - COMP 09/13 1626 BLOOD: Blood Culture - RECD 09/13 1535 BLOOD: Blood Culture - RECD Diagnostic Data EKG Results Sinus tachycardia. Heart rate 135 beats per minutes. Incomplete left bundle branch block (old) CXR Results IMPRESSION: Limited exam. Right-sided pleural effusion and adjacent pulmonary opacity, most likely atelectasis. Clinical correlation for superimposed pneumonia is suggested. Other Results Chest CT angiogram: IMPRESSION: 1. No pulmonary embolism. 2. Severe pulmonary emphysema. 3. 0.7 x 1.1 x 0.8 cm nodule of the right lower lobe remains suspicious for carcinoma; it is new compared to 12/23/2015. Also, the right hilar and mediastinal lymphadenopathy are new compared to 12/23/2015. 3. There are recent, displaced fractures of left sixth and seventh ribs. 4. Diffuse osteoporosis. Findings within the degenerated spine include severe compression fracture of the T7 vertebral body and worsening compression fracture deformity of the T8 vertebral body. Assessment/Plan Assessment: The patient is an 82-year-old woman with a past medical history of COPD on home oxygen 5-6L, NIDDM, history of SVT, Hypothyroidism S/P Goiter surgery, on levothyroxine, and pulmonary embolism was sent in from the COPD clinic on account of a 2-week history of worsening shortness of breath with left-sided chest pain. Her symptoms are consistent with an acute exacerbation of COPD as well as chest pain from a left rib fracture. Etiology of her left rib fracture is unclear as the patient denies any trauma. However osteoporosis is a possibility considering her recent osteoporotic thoracic vertebral compression fracture. She will be admitted and given medications for pain control and treated for acute COPD exacerbation with IV steroids and bronchodilator nebulizers. Her ABG shows hypoxemia PO2 of 63 and hypercarbia with PCO2 of 54 TORR. We will avoid opiate medications given her severe reaction to Tylenol with Codeine on a previous admission. Pulmonology consultation will be obtained for her COPD exacerbation and also for a right lung nodule observed on her CT chest. Given her previous history of SVT on metoprolol. She will be monitored on telemetry and serial EKGs and troponins will be obtained. She had a negative rapid flu test and doesn't appear to have any sign of infection at this time and received IV ceftriaxone and doxycycline in the ER. We will watch off antibiotics and follow-up blood cultures and sputum cultures. Problem list 1. Acute exacerbation of COPD 2. Left rib fractures probably secondary to osteoporosis 3. SVT on metoprolol 4. History of left bundle branch block 5. Diabetes mellitus 6. Hypothyroidism 7. History of frequent UTI on prophylactic therapy with cephalexin 8. Right lung nodule on CT scan Plan * Admit to telemetry * Oxygen by intranasal, to keep SPO2 greater than 92% * Patient received IV Solu-Medrol 125 mg once in the ER. Will continue with IV Solu-Medrol 40 mg every 8 hours * Continue home medication of Symbicort and Spiriva inhalers * TRC evaluation for nebulizer therapy * Consider BiPAP therapy if patient has worsening respiratory distress * Pulmonology consultation with Dr. Adam in the morning for COPD exacerbation management and right lung nodule * Start by mouth Tylenol 650 mg every 4 hours when necessary for left rib pain as well as lidocaine patch * Serial EKGs and troponins 3 * Continue by mouth metoprolol 12.5 mg twice a day for history of SVT * Accu-Cheks 3 times a day and at bedtime and NovoLog sliding scale 3 times a day and at bedtime for diabetes * Continue home medication of Synthroid for hypothyroidism * COntinue UTI prophylaxis with cephalexin daily * DVT prophylaxis with subcutaneous Lovenox and Alps * Patient is full CODE STATUS As Ranked By This Provider Problem List: 1. COPD exacerbation 2. Respiratory distress 3. Ribs, multiple fractures 4. Compression fracture of body of thoracic vertebra Core Measures/Misc (03/20) Acute Coronary Syndrome ACS Diagnosis: No Congestive Heart Failure Congestive Heart Failure Diagnosis No Cerebrovascular Accident CVA/TIA Diagnosis: No VTE (View Protocol) VTE Risk Factors Age>40 No Mechanical VTE Prophylaxis d/t N/A MechProphylax Ordered No VTE Pharm Prophylaxis d/t NA PharmProphylax ordered Sepsis (View protocol) Sepsis Present: No Tierar Lucero MD 09/13/17 2303: Attending MD Review Statement Attending Statement Attending MD Statement: examined this patient, discuss w/resident/PA/GENERAL MANAGER FARM, agreed w/resident/PA/GENERAL MANAGER FARM, reviewed EMR data (avail) Attending Assessment/Plan: 82F PMH COPD on home oxygen 5-6L, NIDDM, history of SVT, Hypothyroidism S/P Goiter surgery with 2 weeks of progressive shortness of breath and left sided chest pain radiating to back, found to have left anterior 6th and 7th rib fractures. No history of trauma to the area, no signs of abuse. Tachycardic 140's in ED, sinus, apparent widening of QRS from prior EKG, troponin negative. Poor air entry on lung exam without rhonchi, with mild wheezing heard bilaterally. Plan - Admit to telemetry - Solumerol 40mg q12h with rapid taper - Avoid all opioids as patient received Tylenol with Codeine on prior admission and had severe respiratory depression - NEbulizer treatments, incentive spirometry - Tylenol for pain control - Hold antibiotics (received Ceftriaxone and Doxycycline in ED but low suspicion for infection) - Pulmonary consult - Continue home medications - DVT PPx
[2017-09-13] MEDS ORDERED: CEPHALEXIN250 M2 PO (20:41)
[2017-09-13 21:53] VITALS: BP 110/70
[2017-09-14 03:37] LABS: ABSOLUTE BASOPHIL COUNT 0 /CUMM (0.0-0.2); ABSOLUTE EOSINOPHIL COUNT 0 /CUMM (0.0-0.7); ABSOLUTE GRANULOCYTE CT 4.3 /CUMM (1.4-6.5); ABSOLUTE LYMPH COUNT 0.9 /CUMM (1.2-3.4); ABSOLUTE MONOCYTE COUNT 0.2 /CUMM (0.10-0.60); BASOPHIL % 0.5 % (0.0-2.0); EOSINOPHIL % 0 % (0-5); GRANULOCYTE % 79.4 % (42.2-75.2); MEAN CORPUSCULAR HGB 30.8 PG (27.0-31.0); MEAN CORPUSCULAR HGB CONC 32.9 G/DL (33.0-37.0); MEAN CORPUSCULAR VOLUME 93.6 FL (81.0-99.0); MEAN PLATELET VOLUME 8.9 FL (7.4-10.4); PLATELET COUNT 227 /CUMM (130-400); RBC DISTRIBUTION WIDTH 13.3 % (11.5-14.5); RED BLOOD CELL CT 3.61 /CUMM (4.20-5.40)
[2017-09-14 03:41] LABS: WHITE BLOOD CELL COUNT 5.5 /CUMM (4.8-10.8)
[2017-09-14 03:42] LABS: HEMATOCRIT 33.8 % (37-47)
[2017-09-14 07:08] VITALS: BP 120/60
--- NOTE | 2017-09-14 07:20 | PN- Housestaff ---
Dinh GALLAGHER,[facility] 09/14/17 0720: Subjective Follow-up For: 1. Acute exacerbation of COPD 2. Left rib fractures probably secondary to osteoporosis multiple compression fractures 3. SVT on metoprolol 4. RLL nodule Tele-Events Since Last Visit: NSR, BBB 82-110 QRS .12 Pr .16 Subjective: No acute events overnight. Pain well controlled with lidocaine patch. Review of Systems Constitutional: Reports: see HPI. Cardiovascular: Reports: no symptoms. Respiratory: Reports: no symptoms. Gastrointestinal: Reports: no symptoms. Genitourinary: Reports: no symptoms. Musculoskeletal: Reports: no symptoms. Objective Last 24 Hrs of Vital Signs/I&O Vital Signs Date Time Temp Pulse Resp B/P B/P Pulse O2 O2 Flow FiO2 Mean Ox Delivery Rate 09/14 1604 98 Nasal 5.0L Cannula 09/14 1433 98.6 104 22 124/56 94 Nasal 5.0L Cannula 09/14 1213 Nasal 5.0L Cannula 09/14 0818 87 120/60 09/14 0815 Room Air 6.0L 09/14 0708 98.4 87 20 120/60 97 Nasal 7.0L Cannula 09/13 2242 118 110/70 09/13 2153 97.0 118 20 110/70 93 09/13 2144 Nasal 5.0L Cannula 09/13 2110 98.4 119 24 145/69 96 Nasal 5.0L Cannula Intake & Output 09/14 1600 09/14 0800 09/14 0000 Intake Total 300 260 120 Output Total 400 300 Balance -100 260 -180 Intake, Oral 300 260 120 Number 1 Bowel Movements Output, Urine 400 300 Patient 143 lb Weight Weight Bed scale Measurement Method Physical Exam General Appearance: Alert, Oriented X3, Cooperative, No Acute Distress HEENT: EOMI Cardiovascular: Regular Rate, Normal S1, Normal S2 Lungs: very decreased air movement Abdomen: Normal Bowel Sounds, Soft, No Tenderness Extremities: LE edema Vascular: 2+ radial pulses Current Medications: Current Medications Sig/Linnea Start time Last Medication Dose Route Stop Time Status Admin Acetaminophen 650 MG Q4P PRN 09/13 2044 AC 09/13 PO 2050 Acetaminophen 0 .STK-MED ONE 09/13 204 DC PO Albuterol Sulfate 3 ML EVERY 4 HRS/AWAKE 09/14 1600 AC 09/14 INH 1553 Albuterol Sulfate 3 ML Q6P PRN 09/14 0815 DC 09/14 INH 1206 Aspirin Buffered 81 MG DAILY 09/14 1000 AC 09/14 PO 0821 Budesonide/ 2 PUF BID 09/13 2200 AC 09/14 Formoterol Fumarate INH 0821 Cephalexin 250 MG DAILY 09/14 1000 AC 09/14 PO 09/15 0959 0818 Enoxaparin Sodium 40 MG DAILY 09/14 1000 AC 09/14 SC 0818 Insulin Aspart 0 TIDAC 09/14 0800 AC 09/14 SC 1746 Insulin Aspart 0 AT BEDTIME 09/13 2200 AC SC Ipratropium [place] 2.5 ML Q6P PRN 09/14 0815 DC INH Ketorolac 15 MG Q6-PRN PRN 09/13 2100 AC Tromethamine IV Ketorolac 15 MG Q6-PRN PRN 09/13 204 DC Tromethamine IV Levothyroxine Sodium 0.075 MG DAILY AC 09/14 0700 AC 09/14 PO 0623 Lidocaine 1 PAT DAILY 09/14 1000 DC EXT Lidocaine 1 PAT DAILY@2100 09/13 2100 DC 09/13 EXT 2049 Lidocaine 1 PAT DAILY 09/13 2030 AC 09/14 EXT 1104 Methylprednisolone 40 MG Q12 09/14 1000 AC 09/14 IV 0818 Methylprednisolone 40 MG Q8 09/14 0600 DC IV Metoprolol Tartrate 12.5 MG BID 09/13 2200 AC 09/14 PO 0818 Polyethylene Glycol 17 GM DAILY 09/14 1000 AC 09/14 PO 0820 Pravastatin Sodium 20 MG 1700 09/14 1700 AC 09/14 PO 1632 Tiotropium [place] 1 PUF DAILY 09/14 1000 AC 09/14 INH 0820 Last 24 Hrs of Lab/Bill Results Last 24 Hrs of Labs/Mics: Laboratory Tests 09/14/17 0255: Anion Gap 9, Estimated GFR > 60, BUN/Creatinine Ratio 67.5 H, Troponin I < 0.01 , CBC w Diff NO MAN DIFF REQ, RBC 3.61 L, MCV 93.6, MCH 30.8, MCHC 32.9 L, RDW 13.3, MPV 8.9, Gran % 79.4 H, Lymphocytes % 16.9 L, Monocytes % 3.2, Eosinophils % 0, Basophils % 0.5, Absolute Granulocytes 4.3, Absolute Lymphocytes 0.9 L, Absolute Monocytes 0.2, Absolute Eosinophils 0, Absolute Basophils 0 03/13/18 2105: Troponin I < 0.01 Microbiology 09/14 1418 URINE ROUT: Urine Culture - COLB 09/13 2108 LOWER RESP: Respiratory Culture - CAN Cancelled: SPECIMEN NOT RECEIVED IN LABORATORY 09/13 2108 LOWER RESP: Gram Stain - CAN Cancelled: SPECIMEN NOT RECEIVED IN LABORATORY Assessment/Plan Assessment: A: 82-year-old woman with a past medical history of COPD on home oxygen 5-6L, NIDDM , history of SVT, Hypothyroidism S/P Goiter surgery, on levothyroxine, and pulmonary embolism was sent in from the COPD clinic on account of a 2-week history of worsening shortness of breath with left-sided chest pain found to be on copd with left rib fractures, multiple compression fractures and new lung nodule P: #Acute exacerbation of COPD with ? superimposed pna vs atelectasis CXR: Right-sided pleural effusion and adjacent pulmonary opacity, most likely atelectasis. Clinical correlation for superimposed pneumonia is suggested. Trop .01, <.01x2 -cont O2 to keep sats >92% -trc nebs -IV solumedrol, symbicort -cont keflex #Left rib fractures probably secondary to osteoporosis multiple compression fractures -cont lidocaine patch, pain control #SVT on metoprolol -cont on metoprolol #RLL nodule #diabetes -cont novolog sliding scale #chronic medical conditions -cont atorvastatin, miralax, asprin, levothyroxine #dvt prophylaixs - lovenox Problem List: 1. COPD exacerbation 2. Vertebral compression fracture 3. Rib fracture 4. Pneumonia Pain Ratin Pain Location: L chest Pain Goal: Pain 4 or less Pain Plan: pain pathway Tomorrow's Labs & Rationales: cbc bep Max Garciajanessa 09/14/17 1344: Attending MD Review Statement Attending Statement Attending MD Statement: examined this patient, discuss w/resident/PA/DISK RECORDIST, agreed w/resident/PA/DISK RECORDIST, discussed with family, reviewed EMR data (avail), discussed with nursing, discussed with case mgmt Attending Assessment/Plan: Appreciated pulm consult. Pt with new opacity- outpt workup per pulmonary. Acute on chronic resp failure secondary to copd exacerbation. Pt on home oxygen at 5 L by [place]. plan d/w pt and pts family the care plan. Pt quit smoking 5 years ago.
--- NOTE | 2017-09-14 10:23 | Cons- Pulmonary ---
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 CT scan showed a 1 cm right-sided lung nodule suspicious for malignancy new since 2016 she has chronic shortness of breath with activities of daily living Allergies/Medications Allergies: Coded Allergies: Penicillins (UNKNOWN 12/22/15) amoxicillin (UNKNOWN 12/22/15) azithromycin (UNKNOWN 12/22/15) sulfamethoxazole (From Bactrim) (RASH 12/22/15) trimethoprim (From Bactrim) (RASH 12/22/15) Home Med List: Acetaminophen (Tylenol) 325 MG TABLET 2 TAB PO Q6P PRN PAIN Albuterol Sulfate 2.5 MG/3 ML VIAL.NEB 3 ML INH Q4H PRN SHORTNESS OF BREATH Aspirin (Ecotrin*) 81 MG TABLET.DR 1 TAB PO DAILY HEART HEALTH (Reported) Dont take aspirin on tue,tue and tuesday(06/03-06/05) before the Vertebroplasty.Can resume afterwards depending on 's recommendations. Budesonide/Formoterol Fumarate (Symbicort 80-4.5 Mcg Inhaler) 10.2 GM HFA.AER.AD 2 PUF INH BID COPD (Reported) Cephalexin 250 MG CAPSULE 1 CAP PO DAILY UTI PREVENTION (Reported) Ipratropium/Albuterol Sulfate (Iprat-Albut 0.5-3(2.5) MG/3 Ml) 0.5 MG-3 MG (2.5 MG BASE)/3 ML AMPUL.NEB 1 VIAL INH Q6 PRN COPD FOR ACUTE COPD EXACERBATION ICD9 CODE J44.9 Levothyroxine Sodium 75 MCG TABLET 1 TAB PO DAILY THYROID (Reported) Lidocaine (Lidoderm) 5 % ADH..PATCH 1 PAT EXT DAILY Back Pain Metoprolol Tartrate 25 MG TABLET 0.5 TAB PO BID SVT (Reported) Pravastatin Sodium 40 MG TABLET 1 TAB PO DAILY CHOLESTEROL (Reported) Prednisone (Deltasone) 20 MG TABLET 3 TAB PO DAILY WHEEZING BEGIN TOMORROW Sitagliptin Phosphate (Januvia) 100 MG TABLET 1 TAB PO DAILY DIABETES ( Reported) Reason to Stop at ADM: ISS Tiotropium [place] (Spiriva) 18 MCG CAP.W.DEV 1 CAP INH DAILY COPD (Reported) Reason to Stop at ADM: TRC NEBS Review of Systems Review of Systems Constitutional: Reports: weakness. Denies: chills, fever. Cardiovascular: Reports: chest pain. Respiratory: Reports: cough, short of breath. Denies: hemoptysis, sputum production. GI: Denies: abdominal pain, diarrhea, melena. 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 BROTHER (colon cancer). Psychosocial History Where Do You Live? Home Who Do You Live With? self Services at Home: None Primary Language: Burmese Smoking Status: Former Smoker (60 packyear smoker. Quit 2012) ETOH Use: denies use Illicit Drug Use: denies illicit drug use Functional Ability ADLs Independent: dressing, eating, toileting, bathing. Ambulation: independent Exam & Diagnostic Data Last 24 Hrs of Vital Signs/I&O Vital Signs Date Time Temp Pulse Resp B/P B/P Pulse O2 O2 Flow FiO2 Mean Ox Delivery Rate 09/14 0818 87 120/60 09/14 0815 Room Air 6.0L 09/14 0708 98.4 87 20 120/60 97 Nasal 7.0L Cannula 09/13 2242 118 110/70 09/13 2152 97.0 118 20 110/70 93 09/13 2144 Nasal 5.0L Cannula 09/13 2109 98.4 119 24 145/69 96 Nasal 5.0L Cannula 09/131 98.2 123 24 141/64 92 Nasal 5.0L Cannula 09/13 1719 98.1 09/13 171 91 Nasal 5.0L Cannula 09/13 1708 130 28 155/66 89 Nasal 5.0L Cannula 09/13 1636 150 24 157/93 91 Nasal 5.0L Cannula 09/13 1600 922 Nasal 5.0L Cannula 09/13 1516 92 Nasal 5.0L Cannula 09/13 1514 90 Nasal 5.0L Cannula 09/13 1438 92 Nasal 5.0L Cannula 09/13 1350 98.1 106 22 122/69 92 Nasal 5.0L Cannula Intake & Output 09/14 1600 09/14 0800 09/14 0000 Intake Total 260 120 Output Total 300 Balance 260 -180 Intake, Oral 260 120 Output, Urine 300 Patient 143 lb Weight Weight Bed scale Measurement Method Oxygen saturation 7 L 97% there is left posterior chest wall tenderness breath sounds are markedly diminished there are no wheezes or crackles cardiac exam shows regular S1 and S2 without murmurs abdomen is soft nontender Last 48 Hrs of Labs/Bill: Laboratory Tests 09/14/17 0255: Anion Gap 9, Estimated GFR > 60, BUN/Creatinine Ratio 67.5 H, Troponin I < 0.01 , CBC w Diff NO MAN DIFF REQ, RBC 3.61 L, MCV 93.6, MCH 30.8, MCHC 32.9 L, RDW 13.3, MPV 8.9, Gran % 79.4 H, Lymphocytes % 16.9 L, Monocytes % 3.2, Eosinophils % 0, Basophils % 0.5, Absolute Granulocytes 4.3, Absolute Lymphocytes 0.9 L, Absolute Monocytes 0.2, Absolute Eosinophils 0, Absolute Basophils 0 09/13/17 2105: Troponin I < 0.01 09/13/17 1720: pH 7.36, pCO2 54 H, pO2 63 L, HCO3 29 H, ABG O2 Sat (Measured) 91.0 L, P-50 (Temp Corrected) 98.1, Carboxyhemoglobin 0.5 L, O2 Concentration % 6L, Temperature 98.1, O2 Delivery Method NC, Phlebotomy Draw Site RIGHT RADIAL 09/13/17 1714: Lactic Acid Cancelled 09/13/17 1446: Lactic Acid 1.0 09/13/17 1446: Anion Gap 12, Estimated GFR > 60, BUN/Creatinine Ratio 60.0 H, Glucose 106 H, Calcium 10.2, Total Bilirubin 0.6, AST 21, ALT 23, Alkaline Phosphatase 67, Troponin I 0.01, Erd-B-Jjezobffbze Pept 465 H, Total Protein 7.4, Albumin 4.1, Globulin 3.3, Albumin/Globulin Ratio 1.2, PT 12.5, INR 1.15, APTT 30, D-Dimer High Sensitivty 301 H, CBC w Diff NO MAN DIFF REQ, RBC 4.14 L, MCV 94.8, MCH 30.9, MCHC 32.6 L, RDW 13.6, MPV 8.2, Gran % 64.2, Lymphocytes % 24.0, Monocytes % 9.8 H, Eosinophils % 1.7, Basophils % 0.3, Absolute Granulocytes 7.2 H, Absolute Lymphocytes 2.7, Absolute Monocytes 1.1 H, Absolute Eosinophils 0.2, Absolute Basophils 0 09/13/17 1414: PT Cancelled, INR Cancelled, APTT Cancelled Microbiology 09/13 1630 NASOPHARYN: Influenza Virus A & B Rapid Smear - COMP Assessment/Plan Impression/Plan: Patient is an 82-year-old with end-stage COPD admitted with chest pain secondary to left-sided rib fractures with acute on chronic hypoxic respiratory failure chronic hypercapnic respiratory failure and right lower lobe nodule suspicious for malignancy Recommendations: Continue current medical regimen. Taper FiO2 his saturations allow. Patient is not a candidate for lung biopsy or surgical resection. We will obtain outpatient PET scan and if possible consider empiric radiation. Will discuss goals of care given the severity of her underlying lung disease Consult Acknowledgment - Thank you for your consult request.
[2017-09-14 14:33] VITALS: BP 124/56
[2017-09-14 22:59] VITALS: BP 114/60
[2017-09-15 06:56] VITALS: BP 120/82
--- NOTE | 2017-09-15 07:19 | PN- Housestaff ---
Dinh GALLAGHER,[facility] 09/15/17 0719: Subjective Follow-up For: Acute exacerbation of COPD Left rib fractures probably secondary to osteoporosis multiple compression fractures SVT on metoprolol RLL nodule Tele-Events Since Last Visit: NS[place], [place], [place] [address] QRS 0.12 AR 0.18 Subjective: No acute events overnight. Patient states that she cannot sleep due to noise disturbance. States that pain is well-controlled on the left ribs with lidocaine patch. States that her shortness of breath is at baseline. Review of Systems Constitutional: Reports: see HPI. Cardiovascular: Reports: no symptoms. Respiratory: Reports: short of breath. Gastrointestinal: Reports: no symptoms. Musculoskeletal: Reports: see HPI. Objective Last 24 Hrs of Vital Signs/I&O Vital Signs Date Time Temp Pulse Resp B/P B/P Pulse O2 O2 Flow FiO2 Mean Ox Delivery Rate 09/15 1347 98.0 100 20 110/56 93 Nasal 5.0L Cannula 09/15 0929 97 Nasal 5.0L Cannula 09/15 0841 126/68 09/15 0830 97 Nasal 5.0L Cannula 09/15 0656 98.2 83 20 120/82 95 Nasal 5.0L Cannula 09/14 2259 98.4 84 22 114/60 95 09/14 2200 95 Nasal 5.0L Cannula 09/14 2026 104 122/74 09/14 1604 98 Nasal 5.0L Cannula Intake & Output 09/15 1600 09/15 0800 09/15 0000 Intake Total 400 450 400 Output Total 500 200 375 Balance -100 250 25 Intake, Oral 400 450 400 Output, Urine 500 200 375 Patient 143 lb Weight Physical Exam General Appearance: Alert, Oriented X3, Cooperative HEENT: PERRLA Cardiovascular: tachycardia, ?irregular rhythm Lungs: decreased air movement in upper lobes. minimal movement in middle and lower lobes. improved from yesterday. Abdomen: Normal Bowel Sounds, Soft, No Tenderness Extremities: 2+ radial pulses Current Medications: Current Medications Sig/Linnea Start time Last Medication Dose Route Stop Time Status Admin Acetaminophen 650 MG Q4P PRN 09/13 2044 AC 09/13 PO 2049 Albuterol Sulfate 3 ML EVERY 4 HRS/AWAKE 09/14 1600 AC 09/15 INH 1620 Aspirin Buffered 81 MG DAILY 09/14 1000 AC 09/15 PO 0840 Budesonide/ 2 PUF BID 09/13 2200 AC 09/15 Formoterol Fumarate INH 0842 Cephalexin 250 MG DAILY 09/14 1000 AC 09/15 PO 10/01 0959 1441 Docusate Sodium 100 MG DAILY 09/15 1000 AC 09/15 PO 1326 Enoxaparin Sodium 40 MG DAILY 09/14 1000 AC 09/15 SC 0839 Insulin Aspart 0 TIDAC 09/14 0800 AC 09/15 SC 1747 Insulin Aspart 0 AT BEDTIME 09/13 2200 AC SC Ketorolac 15 MG Q6-PRN PRN 09/13 2100 AC Tromethamine IV Levothyroxine Sodium 0.075 MG DAILY AC 09/14 0700 AC 09/15 PO 0731 Lidocaine 1 PAT DAILY 09/13 2030 AC 09/15 EXT 0839 Methylprednisolone 40 MG Q12 09/14 1000 AC 09/15 IV 09/16 0000 0839 Metoprolol Tartrate 12.5 MG BID 09/13 2200 AC 09/15 PO 1806 Polyethylene Glycol 17 GM DAILY 09/14 1000 AC 09/15 PO 0840 Pravastatin Sodium 20 MG 1700 09/14 1700 AC 09/15 PO 1747 Prednisone 5 MG DAILY 10/04 1000 AC PO 10/07 0959 Prednisone 10 MG DAILY 10/01 1000 AC PO 10/04 0959 Prednisone 20 MG DAILY 09/28 1000 AC PO 10/01 0959 Prednisone 30 MG DAILY 09/25 1000 AC PO 09/28 0959 Prednisone 40 MG DAILY 09/22 1000 AC PO 09/25 0959 Prednisone 50 MG DAILY 09/19 1000 AC PO 09/22 0959 Prednisone 60 MG TAPER 09/16 1000 DC PO 10/07 0959 Prednisone 60 MG DAILY 09/16 1000 AC PO 09/19 0959 Tiotropium [place] 1 PUF DAILY 09/14 1000 AC 09/15 INH 0840 Last 24 Hrs of Lab/Bill Results Last 24 Hrs of Labs/Mics: Laboratory Tests 09/15/17 0615: Anion Gap 9, Estimated GFR > 60, BUN/Creatinine Ratio 76.7 H, Phosphorus 3.2, Magnesium 2.0, CBC w Diff NO MAN DIFF REQ, RBC 3.51 L, MCV 95.5, MCH 31.4 H, MCHC 32.9 L, RDW 12.8, MPV 9.5, Gran % 82.7 H, Lymphocytes % 12.5 L, Monocytes % 4.6, Eosinophils % 0, Basophils % 0.2, Absolute Granulocytes 7.9 H, Absolute Lymphocytes 1.2, Absolute Monocytes 0.4, Absolute Eosinophils 0, Absolute Basophils 0 09/14/172234: Urine Color YEL, Urine Clarity CLEAR, Urine pH 7.0, Ur Specific [place] 1.015, Urine Protein NEG, Urine Ketones NEG, Urine Nitrite NEG, Urine Bilirubin NEG, Urine Urobilinogen 0.2, Ur Leukocyte Esterase NEG, Ur Microscopic EXAM NOT REQUIRED, Urine Hemoglobin NEG, Urine Glucose 100 H Microbiology 09/14 2234 URINE ROUT: Urine Culture - RECD Assessment/Plan Assessment: A: 82-year-old woman with a past medical history of COPD on home oxygen 5-6L, NIDDM , history of SVT, Hypothyroidism S/P Goiter surgery, on levothyroxine, and pulmonary embolism was sent in from the COPD clinic on account of a 2-week history of worsening shortness of breath with left-sided chest pain found to be on copd with left rib fractures, multiple compression fractures and new lung nodule P: #Acute exacerbation of COPD with ? superimposed pna vs atelectasis CXR: Right-sided pleural effusion and adjacent pulmonary opacity, most likely atelectasis. Clinical correlation for superimposed pneumonia is suggested. Trop .01, <.01x2 -cont O2 to keep sats >92% -trc nebs -IV solumedrol, symbicort -plan to switch to po prednisone tomorrow -f/u PT consult for discharge recommendations #Left rib fractures probably secondary to osteoporosis multiple compression fractures -cont lidocaine patch, pain control #SVT on metoprolol -cont on metoprolol #RLL nodule -outpatient PET scan and pulm f/u #diabetes -cont novolog sliding scale #chronic medical conditions -cont atorvastatin, miralax, asprin, levothyroxine, keflex for uti ppx #dvt prophylaixs - lovenox Problem List: 1. Rib fracture 2. COPD exacerbation 3. Vertebral compression fracture 4. Unsteady gait Pain Ratin Pain Location: ribs Pain Goal: Pain 4 or less Pain Plan: pain pathway Tomorrow's Labs & Rationales: cbc bep Mike Garcia 09/15/17 1445: Attending MD Review Statement Attending Statement Attending MD Statement: examined this patient, discuss w/resident/PA/REINSURANCE CLAIM ANALYST, agreed w/resident/PA/REINSURANCE CLAIM ANALYST, reviewed EMR data (avail), discussed with nursing, discussed with case mgmt Attending Assessment/Plan: Plan is to switch her to po steroids starting tomorrow. d/w pt the code status again today- pt wants to be full code. wants cpr and intubation if needed. possible dc tomorrow if stable from pulm standpoint. d/w pt the care plan.
[2017-09-15 08:21] LABS: ABSOLUTE BASOPHIL COUNT 0 /CUMM (0.0-0.2); ABSOLUTE EOSINOPHIL COUNT 0 /CUMM (0.0-0.7); ABSOLUTE GRANULOCYTE CT 7.9 /CUMM (1.4-6.5); ABSOLUTE LYMPH COUNT 1.2 /CUMM (1.2-3.4); ABSOLUTE MONOCYTE COUNT 0.4 /CUMM (0.10-0.60); BASOPHIL % 0.2 % (0.0-2.0); EOSINOPHIL % 0 % (0-5); GRANULOCYTE % 82.7 % (42.2-75.2); HEMATOCRIT 33.5 % (37-47); MEAN CORPUSCULAR HGB 31.4 PG (27.0-31.0); MEAN CORPUSCULAR HGB CONC 32.9 G/DL (33.0-37.0); MEAN CORPUSCULAR VOLUME 95.5 FL (81.0-99.0); MEAN PLATELET VOLUME 9.5 FL (7.4-10.4); PLATELET COUNT 216 /CUMM (130-400); RBC DISTRIBUTION WIDTH 12.8 % (11.5-14.5); RED BLOOD CELL CT 3.51 /CUMM (4.20-5.40)
[2017-09-15 08:43] LABS: WHITE BLOOD CELL COUNT 9.5 /CUMM (4.8-10.8)
--- NOTE | 2017-09-15 09:00 | PN- Pulmonary ---
Subjective HPI/Critical Care Issues: Left-sided chest pain secondary to rib fractures is improved respiratory status is otherwise at baseline Objective Current Medications: Current Medications Sig/Linnea Start time Last Medication Dose Route Stop Time Status Admin Acetaminophen 650 MG Q4P PRN 09/13 2045 AC 09/13 PO 2050 Albuterol Sulfate 3 ML EVERY 4 HRS/AWAKE 09/14 1600 AC 09/15 INH 0824 Albuterol Sulfate 3 ML Q6P PRN 09/14 0815 DC 09/14 INH 1206 Aspirin Buffered 81 MG DAILY 09/14 1000 AC 09/15 PO 0840 Budesonide/ 2 PUF BID 09/13 2200 AC 09/15 Formoterol Fumarate INH 0842 Cephalexin 250 MG DAILY 09/14 1000 AC 09/14 PO 09/15 0959 0818 Enoxaparin Sodium 40 MG DAILY 09/14 1000 AC 09/15 SC 0839 Insulin Aspart 0 TIDAC 09/14 0800 AC 09/15 SC 0841 Insulin Aspart 0 AT BEDTIME 09/13 2200 AC SC Ipratropium [place] 2.5 ML Q6P PRN 09/14 0815 DC INH Ketorolac 15 MG Q6-PRN PRN 09/13 2100 AC Tromethamine IV Levothyroxine Sodium 0.075 MG DAILY AC 09/14 0700 AC 09/15 PO 0731 Lidocaine 1 PAT DAILY 09/13 2030 AC 09/15 EXT 0839 Methylprednisolone 40 MG Q12 09/14 1000 AC 09/15 IV 0839 Metoprolol Tartrate 12.5 MG BID 09/13 2200 AC 09/15 PO 0841 Polyethylene Glycol 17 GM DAILY 09/14 1000 AC 09/15 PO 0840 Pravastatin Sodium 20 MG 1700 09/14 1700 AC 09/14 PO 1632 Tiotropium [place] 1 PUF DAILY 09/14 1000 AC 09/15 INH 0840 Vital Signs & I&O Last 24 Hrs of Vitals and I&O: Vital Signs Date Time Temp Pulse Resp B/P B/P Pulse O2 O2 Flow FiO2 Mean Ox Delivery Rate 09/15 0841 126/68 09/15 0830 97 Nasal 5.0L Cannula 09/15 0656 98.2 83 20 120/82 95 Nasal 5.0L Cannula 09/14 2258 98.4 84 22 114/60 95 09/14 2200 95 Nasal 5.0L Cannula 09/146 104 122/74 09/14 1604 98 Nasal 5.0L Cannula 09/14 1433 98.6 104 22 124/56 94 Nasal 5.0L Cannula 09/14 1213 Nasal 5.0L Cannula Intake & Output 09/15 1600 09/15 0800 09/15 0000 Intake Total 450 400 Output Total 200 375 Balance 250 25 Intake, Oral 450 400 Output, Urine 200 375 Patient 143 lb Weight Since saturation 5 L 97% exam for chest shows diminished breath sounds are no wheezes or crackles cardiac exam shows a regular S1 and S2 without murmurs Impression/Plan Impression/Plan Impression/Plan: 82-year-old presented with chest pain secondary to left-sided rib fractures. There is a right lower lobe nodule suspicious for malignancy Recommendations: Discontinue Solu-Medrol begin oral prednisone ta per FiO2 with improved saturations outpatient PET scan anticipate discharge tomorrow
[2017-09-15 13:47] VITALS: BP 110/56
[2017-09-15 22:12] VITALS: BP 130/62
--- NOTE | 2017-09-16 08:09 | PN- Pulmonary ---
Subjective HPI/Critical Care Issues: Patient's feels well chest pain markedly improved Objective Current Medications: Current Medications Sig/Linnea Start time Last Medication Dose Route Stop Time Status Admin Acetaminophen 650 MG Q4P PRN 09/13 2045 AC 09/13 PO 2050 Albuterol Sulfate 3 ML EVERY 4 HRS/AWAKE 09/14 1600 AC 09/15 INH 2140 Aspirin Buffered 81 MG DAILY 09/14 1000 AC 09/15 PO 0840 Budesonide/ 2 PUF BID 09/13 2200 AC 09/15 Formoterol Fumarate INH 2122 Cephalexin 250 MG DAILY 09/14 1000 AC 09/15 PO 10/01 0959 1441 Docusate Sodium 100 MG DAILY 09/15 1000 AC 09/15 PO 1326 Enoxaparin Sodium 40 MG DAILY 09/14 1000 AC 09/15 SC 0839 Insulin Aspart 0 TIDAC 09/14 0800 AC 09/15 SC 1747 Insulin Aspart 0 AT BEDTIME 09/13 2200 AC SC Ketorolac 15 MG Q6-PRN PRN 09/13 2100 AC Tromethamine IV Levothyroxine Sodium 0.075 MG DAILY AC 09/14 0700 AC 09/16 PO 0538 Lidocaine 1 PAT DAILY 09/13 2030 AC 09/15 EXT 0839 Methylprednisolone 40 MG Q12 09/14 1000 DC 09/15 IV 09/16 0000 2122 Metoprolol Tartrate 12.5 MG BID 09/13 2200 AC 09/15 PO 1806 Polyethylene Glycol 17 GM DAILY 09/14 1000 AC 09/15 PO 0840 Pravastatin Sodium 20 MG 1700 09/14 1700 AC 09/15 PO 1747 Prednisone 5 MG DAILY 10/04 1000 AC PO 10/07 0959 Prednisone 10 MG DAILY 10/01 1000 AC PO 10/04 0959 Prednisone 20 MG DAILY 09/28 1000 AC PO 10/01 0959 Prednisone 30 MG DAILY 09/25 1000 AC PO 09/28 0959 Prednisone 40 MG DAILY 09/22 1000 AC PO 09/25 0959 Prednisone 50 MG DAILY 09/19 1000 AC PO 09/22 0959 Prednisone 60 MG TAPER 09/16 1000 DC PO 10/07 0959 Prednisone 60 MG DAILY 09/16 1000 AC PO 09/19 0959 Tiotropium [place] 1 PUF DAILY 09/14 1000 AC 09/15 INH 0840 Vital Signs & I&O Last 24 Hrs of Vitals and I&O: Vital Signs Date Time Temp Pulse Resp B/P B/P Pulse O2 O2 Flow FiO2 Mean Ox Delivery Rate 09/16 0000 Nasal 5.0L Cannula 09/15 2212 99.1 81 20 130/62 96 Nasal 5.0L Cannula 09/15 1806 125 122/68 09/15 1623 96 Nasal 5.0L Cannula 09/15 1600 96 Nasal 5.0L Cannula 09/15 1347 98.0 100 20 110/56 93 Nasal 5.0L Cannula 09/15 0929 97 Nasal 5.0L Cannula 09/15 0841 126/68 09/15 0830 97 Nasal 5.0L Cannula Intake & Output 09/16 1600 09/16 0800 09/16 0000 Intake Total 120 320 Output Total Balance 120 320 Intake, Oral 120 320 Number 1 Bowel Movements Patient 163 lb Weight Oxygen saturation 5 L 9697% exam for chest shows diminished breath sounds there are no wheezes cardiac exam shows regular S1 and S2 without murmurs Impression/Plan Impression/Plan Impression/Plan: 82-year-old with severe end-stage COPD admitted with chest pain secondary to rib fractures is clinically improved Recommendations: Discontinue Solu-Medrol begin oral prednisone ta per FiO2 with improved saturations outpatient PET scan patient appears stable for discharge from pulmonary standpoint
[2017-09-16 08:28] LABS: ABSOLUTE BASOPHIL COUNT 0 /CUMM (0.0-0.2); ABSOLUTE EOSINOPHIL COUNT 0 /CUMM (0.0-0.7); ABSOLUTE GRANULOCYTE CT 6.8 /CUMM (1.4-6.5); ABSOLUTE LYMPH COUNT 1.2 /CUMM (1.2-3.4); ABSOLUTE MONOCYTE COUNT 0.8 /CUMM (0.10-0.60); BASOPHIL % 0.2 % (0.0-2.0); EOSINOPHIL % 0.1 % (0-5); GRANULOCYTE % 76.6 % (42.2-75.2); HEMATOCRIT 33.6 % (37-47); MEAN CORPUSCULAR HGB 31.4 PG (27.0-31.0); MEAN CORPUSCULAR HGB CONC 33.3 G/DL (33.0-37.0); MEAN CORPUSCULAR VOLUME 94.1 FL (81.0-99.0); MEAN PLATELET VOLUME 9.1 FL (7.4-10.4); PLATELET COUNT 218 /CUMM (130-400); RBC DISTRIBUTION WIDTH 13.4 % (11.5-14.5); RED BLOOD CELL CT 3.57 /CUMM (4.20-5.40); WHITE BLOOD CELL COUNT 8.9 /CUMM (4.8-10.8)
[2017-09-16 08:29] VITALS: BP 130/64
--- NOTE | 2017-09-16 08:39 | PN- Housestaff ---
Dinh GALLAGHER,[facility] 09/16/17 0839: Subjective Follow-up For: Acute exacerbation of COPD Left rib fractures probably secondary to osteoporosis multiple compression fractures SVT on metoprolol RLL nodule Tele-Events Since Last Visit: HR 72-81 QRS .12-.14 [place] .18 Subjective: No acute events overnight. Patient asking why nurses are telling her that HR jumps to 120s. Spoke with nurse who said it happens only when pt gets up to use bathroom. Complains of intermittent palpitations. No CP. Review of Systems Constitutional: Reports: see HPI. Cardiovascular: Reports: palpitations. Denies: chest pain. Objective Last 24 Hrs of Vital Signs/I&O Vital Signs Date Time Temp Pulse Resp B/P B/P Pulse O2 O2 Flow FiO2 Mean Ox Delivery Rate 09/16 1400 98.9 80 20 124/60 95 Room Air 09/16 0843 82 130/64 09/16 0841 98 Nasal 5.0L Cannula 09/16 0829 82 130/64 09/16 0800 Nasal 5.0L Cannula 09/16 0000 Nasal 5.0L Cannula 09/15 2212 99.1 81 20 130/62 96 Nasal 5.0L Cannula 09/15 1806 125 122/68 09/15 1623 96 Nasal 5.0L Cannula Intake & Output 09/16 1600 09/16 0800 09/16 0000 Intake Total 780 120 320 Output Total Balance 780 120 320 Intake, Oral 780 120 320 Number 1 1 Bowel Movements Patient 163 lb Weight Physical Exam General Appearance: Alert, Oriented X3, Cooperative HEENT: PERRLA Cardiovascular: Regular Rate, Normal S1, Normal S2 Lungs: decreased air movement. a little more movemetn in middle lobes compared to yesterday Abdomen: Soft, No Tenderness, decreased BS Vascular: L 1+ radial. R 2+r radial Current Medications: Current Medications Sig/Linnea Start time Last Medication Dose Route Stop Time Status Admin Acetaminophen 650 MG Q4P PRN 09/13 2044 DCD 09/13 PO 2049 Albuterol Sulfate 3 ML EVERY 4 HRS/AWAKE 09/14 1600 DCD 09/16 INH 1243 Aspirin Buffered 81 MG DAILY 09/14 1000 DCD 09/16 PO 0843 Budesonide/ 2 PUF BID 09/13 2200 DCD 09/16 Formoterol Fumarate INH 0842 Cephalexin 250 MG DAILY 09/14 1000 DCD 09/16 PO 10/01 0959 0843 Docusate Sodium 100 MG DAILY 09/15 1000 DCD 09/16 PO 0843 Enoxaparin Sodium 40 MG DAILY 09/14 1000 DCD 09/16 SC 0842 Insulin Aspart 0 TIDAC 09/14 0800 DCD 09/16 SC 0844 Insulin Aspart 0 AT BEDTIME 09/13 2200 DCD SC Ketorolac 15 MG Q6-PRN PRN 09/13 2100 DCD Tromethamine IV Levothyroxine Sodium 0.075 MG DAILY AC 09/14 0700 DCD 09/16 PO 0538 Lidocaine 1 PAT DAILY 09/13 2030 DCD 09/16 EXT 0842 Methylprednisolone 40 MG Q12 09/14 1000 DC 09/15 IV 09/16 0000 2122 Metoprolol Tartrate 12.5 MG BID 09/13 2200 DCD 09/16 PO 0843 Polyethylene Glycol 17 GM DAILY 09/14 1000 DCD 09/16 PO 0841 Pravastatin Sodium 20 MG 1700 09/14 1700 DCD 09/15 PO 1747 Prednisone 5 MG DAILY 10/04 1000 DCD PO 10/07 0959 Prednisone 10 MG DAILY 10/01 1000 DCD PO 10/04 0959 Prednisone 20 MG DAILY 09/28 1000 DCD PO 10/01 0959 Prednisone 30 MG DAILY 09/25 1000 DCD PO 09/28 0959 Prednisone 40 MG DAILY 09/22 1000 DCD PO 09/25 0959 Prednisone 50 MG DAILY 09/19 1000 DCD PO 09/22 0959 Prednisone 60 MG TAPER 09/16 1000 DC PO 10/07 0959 Prednisone 60 MG DAILY 09/16 1000 DCD 09/16 PO 09/19 0959 0843 Tiotropium [place] 1 PUF DAILY 09/14 1000 DCD 09/16 INH 0842 Last 24 Hrs of Lab/Bill Results Last 24 Hrs of Labs/Mics: Laboratory Tests 09/16/17 0615: Anion Gap 8, Estimated GFR > 60, BUN/Creatinine Ratio 45.0 H, CBC w Diff NO MAN DIFF REQ, RBC 3.57 L, MCV 94.1, MCH 31.4 H, MCHC 33.3, RDW 13.4, MPV 9.1, Gran % 76.6 H, Lymphocytes % 13.9 L, Monocytes % 9.2, Eosinophils % 0.1, Basophils % 0.2, Absolute Granulocytes 6.8 H, Absolute Lymphocytes 1.2, Absolute Monocytes 0.8 H, Absolute Eosinophils 0, Absolute Basophils 0 Assessment/Plan Assessment: A: 82-year-old woman with a past medical history of COPD on home oxygen 5-6L, NIDDM , history of SVT, Hypothyroidism S/P Goiter surgery, on levothyroxine, and pulmonary embolism was sent in from the COPD clinic on account of a 2-week history of worsening shortness of breath with left-sided chest pain found to be on copd with left rib fractures, multiple compression fractures and new lung nodule P: #Acute exacerbation of COPD with ? superimposed pna vs atelectasis CXR: Right-sided pleural effusion and adjacent pulmonary opacity, most likely atelectasis. Clinical correlation for superimposed pneumonia is suggested. Trop .01, <.01x2 -pt discharged with po prednisone and pulm follow up -cont O2 to keep sats >92% -[facility] nebs -symbicort -f/u PT consult for discharge recommendations #Left rib fractures probably secondary to osteoporosis multiple compression fractures -offered lidocaine patch for dc but did not want due to cost, pain control #RLL nodule -outpatient PET scan and pulm f/u #SVT on metoprolol -cont on metoprolol #diabetes -cont novolog sliding scale #chronic medical conditions -cont atorvastatin, miralax, asprin, levothyroxine, keflex for uti ppx #dvt prophylaixs - lovenox Problem List: 1. Rib fracture 2. COPD exacerbation Pain Ratin Pain Location: L chest Pain Goal: Remain pain free Pain Plan: pain pathway Tomorrow's Labs & Rationales: none Mike Garcia 09/16/17 1441: Attending MD Review Statement Attending Statement Attending MD Statement: examined this patient, discuss w/resident/PA/PNEUMATIC JACKETER, agreed w/resident/PA/PNEUMATIC JACKETER, reviewed EMR data (avail), discussed with nursing, discussed with case mgmt Attending Assessment/Plan: Pt being dced home in stable cont on prednisone taper. Pt will f/u with pulm as an outpatient and will have PET scan as an outpatient. see dc summary for more details. d/w pt the care plan.
[2017-09-16] MEDS ORDERED: LIDODERM1 EACH EXT ×2 (10:02→10:03)
[2017-09-16] MEDS ORDERED: PREDNISONE10 M2 PO ×2 (10:02→10:47)
[2017-09-16 14:00] VITALS: BP 124/60
--- NOTE | 2017-09-16 16:13 | Patient Discharge Instructions ---
Discharge Instructions General Discharge Information Special Instructions: Please follow up with your pcp in 1 week. Please follow up with your pulmnologist Dr. Perez in 1 week. Please discuss with Dr. Perez regarding a PET scan for your lung. Please continue your prednisone taper and medications as perscribed. Acute Coronary Syndrome Inclusion Criteria At DC or during hospital stay patient has or had the following: ACS DIAGNOSIS No Discharge Core Measures Meds if any: Prescribed or Continued at Discharge Meds if any: NOT Prescribed or Continued at Discharge Congestive Heart Failure Inclusion Criteria At DC or during hospital stay patient has or had the following: CHF DIAGNOSIS No Discharge Core Measures Meds if any: Prescribed or Continued at Discharge Meds if any: NOT Prescribed or Continued at Discharge Cerebrovascular accident Inclusion Criteria At DC or during hospital stay patient has or had the following: CVA/TIA Diagnosis No Discharge Core Measures Meds if any: Prescribed or Continued at Discharge Meds if any: NOT Prescribed or Continued at Discharge Venous thromboembolism Inclusion Criteria VTE Diagnosis No VTE Type NONE VTE Confirmed by (Test) NONE Discharge Core Measures - Per Current guidelines, there needs to be overlap - treatment for the first 5 days of Warfarin therapy. - If discharged on Warfarin prior to 5 days of - overlap therapy, the patient will need to be - assessed for post discharge needs including - *Post discharge parental anticoagulation - *Warfarin and/or parental anticoagulation education - *Follow up date to check INR post discharge At least 5 days overlap therapy as Inpatient No Meds if any: Prescribed or Continued at Discharge Note: Overlap Therapy is Warfarin and Anticoagulant Meds if any: NOT Prescribed or Continued at Discharge
--- NOTE | 2017-09-17 00:34 | Discharge Summary ---
Visit Information Visit Dates Admission Date: 09/13/17 Discharge Date: 09/16/17 Hospital Course Course Attending Physician: Radha GALLAGHER,Mike Menon Primary Care Physician: Santiago GALLAGHER,[facility] Hospital Course: A: 82-year-old woman with a past medical history of COPD on home oxygen 5-6L, NIDDM , history of SVT, hypothyroidism S/P Goiter surgery, on levothyroxine, and pulmonary embolism was sent in from the COPD clinic on account of a 2-week history of worsening shortness of breath with left-sided chest pain found to be on copd with left rib fractures, multiple compression fractures and new lung nodule. P: #Acute exacerbation of COPD The patient presented for a 2 week history of SOB. CXR revealed right-sided pleural effusion and adjacent pulmonary opacity, most likely atelectasis. CTA revealed 1. No PE. 2. Severe pulmonary emphysema. 3. nodule of the right lower lobe suspicious for carcinoma with right hilar and mediastinal lymphadenopathy 3. recent, displaced fractures of left sixth and seventh ribs and 4. Diffuse osteoporosis with severe compression fracture of the T7 vertebral body and worsening compression fracture deformity of the T8 vertebral body. Troponins were negative x3. She was seen by pulmnology, started on IV steroids and transitioned to po prednisone for discharge. She was sent home with home PT. #Left rib fractures and vertebral fractures Her pain was well controlled with a lidocaine patch during inpatient. She was offered lidocaine patches for discharge but stated her insurance would not cover then and declined. She will need an endocrinology work up for her osteoporosis and multiple recurrent fractures. #RLL nodule She was found to have a new lung nodule on CTA. She was seen by pulmnology who recommended an outpatient PET scan. #hx of SVT She was continued on metoprolol #diabetes Home diabetic medications were held and she was started on novolog sliding scale during inpatient. Her home medications were discharged upon admission. #chronic medical conditions:hld, constipation, hypothyrodism, recurrent UTI -cont atorvastatin, miralax, asprin, levothyroxine, keflex for uti ppx Allergies: Coded Allergies: Penicillins (UNKNOWN 12/22/15) amoxicillin (UNKNOWN 12/22/15) azithromycin (UNKNOWN 12/22/15) sulfamethoxazole (From Bactrim) (RASH 12/22/15) trimethoprim (From Bactrim) (RASH 12/22/15) Disposition Summary Disposition Principal Diagnosis: COPD Additional Diagnosis: Left rib fractures Multiple compression fractures RLL nodule Discharge Disposition: home or self care Discharge Instructions General Discharge Information Code Status: Full Code Patient's Diet: Diabetic diet Patient's Activity: As tolerated Follow-Up Instructions/Appts: Please follow up with your pcp in 1 week. Please follow up with your pulmnologist Dr. Perez in 1 week. Please discuss with Dr. Perez regarding a PET scan for your lung. Please continue your prednisone taper and medications as perscribed. Medications at Discharge Discharge Medications: Stop taking the following medications: Prednisone (Deltasone) 20 MG TABLET ORAL DAILY Qty = 12 Continue taking these medications: Aspirin (Ecotrin*) 81 MG TABLET.DR 1 Tablet ORAL DAILY Instructions: Dont take aspirin on tue,tue and tuesday(06/03-06/05) before the Vertebroplasty.Can resume afterwards depending on 's recommendations. Comments: Last Taken: 09/16/17 Time: 9AM Pravastatin Sodium (Pravastatin Sodium) 40 MG TABLET 1 Tablet ORAL DAILY Qty = 90 Comments: Last Taken: 09/15/17 Time: 5PM Sitagliptin Phosphate (Januvia) 100 MG TABLET 1 Tablet ORAL DAILY Qty = 30 Instructions: Reason to Stop at ADM: ISS Comments: NOT GIVEN IN HOSPITAL Levothyroxine Sodium (Levothyroxine Sodium) 75 MCG TABLET 1 Tablet ORAL DAILY Comments: Last Taken: 09/16/17 Time: 6AM Metoprolol Tartrate (Metoprolol Tartrate) 25 MG TABLET 0.5 Tablet ORAL TWICE DAILY Qty = 90 Comments: Last Taken: 09/16/17 Time: 9AM Tiotropium [place] (Spiriva) 18 MCG CAP.W.DEV 1 Capsule Inhale through mouth DAILY Instructions: Reason to Stop at ADM: [facility] NEBS Comments: Last Taken: 09/16/17 Time: 9AM Budesonide/Formoterol Fumarate (Symbicort 80-4.5 Mcg Inhaler) 10.2 GM HFA.AER.AD 2 Puff Inhale through mouth TWICE DAILY Days = 30 Comments: Last Taken: 09/16/17 Time: 9AM Albuterol Sulfate (Albuterol Sulfate) 2.5 MG/3 ML VIAL.NEB 3 Milliliters Inhale through mouth Q4H as needed for SHORTNESS OF BREATH Days = 28 Comments: Last Taken: 09/16/17 Time: 12PM Acetaminophen (Tylenol) 325 MG TABLET 2 Tablet ORAL EVERY SIX HOURS NEEDED as needed for PAIN Qty = 30 Comments: NOT GIVEN IN HOSPITAL Ipratropium/Albuterol Sulfate (Iprat-Albut 0.5-3(2.5) MG/3 Ml) 0.5 MG-3 MG (2.5 MG BASE)/3 ML AMPUL.NEB 1 VIAL Inhale through mouth EVERY SIX HOURS as needed for COPD Qty = 30 Instructions: FOR ACUTE COPD EXACERBATION ICD9 CODE J44.9 Comments: Last Taken: 09/16/17 Time: 9AM Cephalexin (Cephalexin) 250 MG CAPSULE 1 Capsule ORAL DAILY Qty = 30 Comments: Last Taken: 09/16/17 Time: 9AM Start taking the following new medications: Prednisone (Prednisone) 10 MG TABLET 1 Tablet ORAL DAILY Qty = 65 No Refills Instructions: DATE TABS 6 09/19- 5 09/22- 4 09/25- 3 09/28- 2 10/01-10/03 1 10/04-10/06 0.5 . Comments: NOT GIVEN IN HOSPITAL Copies To: Santiago GALLAGHER,Stacy
== END 2017-09-16 14:35 | disposition home health service (06) | DRG 542 ==
LOC: ERH 13:47 → 1NO 16:33 → ERHI 16:33 → CANRESERV 18:09 → ENRESERV 18:09 → ENTRNSPT 21:09 → EDTRNSPTSTS 21:11 → EDTRNSPT 21:15 → 1NO 21:16 → CMPTRNSPT 21:44 → 1NO 09-14 07:35 → ENPENDDIS 09-16 10:48 → ENTRNSPT 09-16 14:23 → EDTRNSPTSTS 09-16 14:27 → CMPTRNSPT 09-16 14:31 → 1NO 09-16 14:35
PROVIDERS: Internal Medicine; Physician Assistant Medical
DX: M80.88XA Other osteoporosis with current pathological fracture, vertebra(e), initial encounter for fracture (principal); J96.21 Acute and chronic respiratory failure with hypoxia; J44.1 Chronic obstructive pulmonary disease with (acute) exacerbation; J96.22 Acute and chronic respiratory failure with hypercapnia; I47.1 Supraventricular tachycardia; E11.9 Type 2 diabetes mellitus without complications; Z99.81 Dependence on supplemental oxygen; E89.0 Postprocedural hypothyroidism; Z88.0 Allergy status to penicillin; Z88.2 Allergy status to sulfonamides; K59.00 Constipation, unspecified; R91.1 Solitary pulmonary nodule; R59.1 Generalized enlarged lymph nodes; Z88.6 Allergy status to analgesic agent; R26.81 Unsteadiness on feet; Z87.440 Personal history of urinary (tract) infections; Z90.89 Acquired absence of other organs; Z90.710 Acquired absence of both cervix and uterus; Z87.891 Personal history of nicotine dependence; Z79.2 Long term (current) use of antibiotics
CPT/HCPCS: 1NSP; 36592; 71045; 81003; 82436; 87040; 87070; 87086; 87804; 87804-59; 93005; 93010; 94644; 94645; 96374; 96375; 97110-GO; 97116-GO; 97161-GP; 99291; J0696; J1650; J1885; J2920; J2930; J3490

== ENCOUNTER 2017-12-23 20:57 | Inpatient (IN) | payer OTHER, MEDICARE ==
[~2017-12-23] VITALS: Ht 162.6 cm; Wt 63.7 kg
[~2017-12-23 20:57] MED LIST changes: +CEPHALEXIN250 M2 PO
--- NOTE | 2017-12-23 21:00 | ED DYSPNEA/ASTHMA COMPLAINT ---
History of Present Illness General Chief Complaint: Dyspnea (COPD, CHF, Other) Stated Complaint: BIBA RESP DISTRESS Source: patient, old records, EMS Exam Limitations: clinical condition Vital Signs & Intake/Output Vital Signs & Intake/Output Vital Signs Date Time Temp Pulse Resp B/P B/P Pulse O2 O2 Flow FiO2 Mean Ox Delivery Rate 12/23 2301 98.8 106 20 123/58 90 Nasal 50% Cannula 12/23 2110 87 Nasal 5.0L Cannula 12/24 2103 86 Nasal 6.0L Cannula 12/24 2103 98.9 120 20 101/72 87 Nasal Cannula Allergies Coded Allergies: Penicillins (UNKNOWN 12/22/15) amoxicillin (UNKNOWN 12/22/15) azithromycin (UNKNOWN 12/22/15) sulfamethoxazole (From Bactrim) (RASH 12/22/15) trimethoprim (From Bactrim) (RASH 12/22/15) Reconcile Medications Acetaminophen (Tylenol) 325 MG TABLET 2 TAB PO Q6P PRN PAIN Albuterol Sulfate 2.5 MG/3 ML VIAL.NEB 3 ML INH Q4H PRN SHORTNESS OF BREATH Aspirin (Ecotrin*) 81 MG TABLET.DR 1 TAB PO DAILY HEART HEALTH (Reported) Dont take aspirin on tue,tue and tuesday(06/03-06/05) before the Vertebroplasty.Can resume afterwards depending on 's recommendations. Budesonide/Formoterol Fumarate (Symbicort 80-4.5 Mcg Inhaler) 10.2 GM HFA.AER.AD 2 PUF INH BID COPD (Reported) Cephalexin 250 MG CAPSULE 1 CAP PO DAILY UTI PREVENTION (Reported) Ipratropium/Albuterol Sulfate (Iprat-Albut 0.5-3(2.5) MG/3 Ml) 0.5 MG-3 MG (2.5 MG BASE)/3 ML AMPUL.NEB 1 VIAL INH Q6 PRN COPD FOR ACUTE COPD EXACERBATION ICD9 CODE J44.9 Levothyroxine Sodium 75 MCG TABLET 1 TAB PO DAILY THYROID (Reported) Metoprolol Tartrate 25 MG TABLET 0.5 TAB PO BID SVT (Reported) Pravastatin Sodium 40 MG TABLET 1 TAB PO DAILY CHOLESTEROL (Reported) Prednisone 10 MG TABLET 1 TAB PO DAILY COPD DATE TABS 09/17- 6 09/19- 5 09/22-24 4 09/25- 3 09/28- 2 10/01-10/03 1 10/04-10/06 0.5 . Sitagliptin Phosphate (Januvia) 100 MG TABLET 1 TAB PO DAILY DIABETES ( Reported) Reason to Stop at ADM: ISS Tiotropium [place] (Spiriva) 18 MCG CAP.W.DEV 1 CAP INH DAILY COPD (Reported) Reason to Stop at ADM: [facility] NEBS Triage Nurses Notes Reviewed? yes Onset: Gradual Duration: day(s): Timing: recent history Severity: moderate Activities at Onset: none Prior Episodes/Possible Cause: occasional episodes Modifying Factors: Improves With: rest. Associated Symptoms: cough, wheezing HPI: 82 yo woman h/o 5 liters depedent copd, presents with dyspnea, wheezing, cough for the past few days, and got worse today. Per the medics, the family reported her 02 sat was 68% on her baseline 5 liters. Upon medics arrival, her 02 sat was 85% on her baseline 5 liters. She was unable to speak complete sentences. She was given a neb and solumedrol 125mg iv x 1. No fever, chest pain, significant sputum. Past History Travel History Traveled to [place] past 21 day No Medical History Any Pertinent Medical History? 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 BROTHER (colon cancer). Hx Contributory? No Review of Systems Review of Systems Constitutional: Reports: no symptoms. EENTM: Reports: no symptoms. Respiratory: Reports: no symptoms. Cardiovascular: Reports: no symptoms. GI: Reports: no symptoms. Genitourinary: Reports: no symptoms. Musculoskeletal: Reports: no symptoms. Skin: Reports: no symptoms. Neurological/Psychological: Reports: no symptoms. Hematologic/Endocrine: Reports: no symptoms. Immunologic/Allergic: Reports: no symptoms. All Other Systems: Reviewed and Negative Physical Exam Physical Exam General Appearance: well developed/nourished, moderate distress Head: atraumatic, normal appearance Eyes: Bilateral: normal appearance. Ears, Nose, Throat: normal pharynx, normal ENT inspection Neck: normal inspection, supple, full range of motion Respiratory: bilateral wheezing with accessory muscle use, unable to speak in complete sentences. prolonged expiratory phase Cardiovascular: regular rate/rhythm Gastrointestinal: normal bowel sounds, soft, non-tender, no organomegaly Extremities: normal inspection, normal capillary refill, normal range of motion, no edema Neurologic/Psych: no motor/sensory deficits, awake, alert, oriented x 3 Skin: intact, normal color, warm/dry Core Measures ACS in differential dx? No CVA/TIA Diagnosis No Sepsis Present: No Sepsis Focused Exam Completed? No Progress Differential Diagnosis: COPD Plan of Care: Orders Procedure Date/time Status Nothing by Mouth 12/24 B Active Saline Lock 12/24 2323 Active Misc Message 12/24 2323 Active ED Holding Orders 12/24 2323 Active Admit to inpatient 12/24 2323 Active Vital Signs 12/24 2323 Active Code Status 12/24 2323 Active THERAPIST ORDERS 12/23 2250 Complete ARTERIAL BLOOD GAS (GEN) 12/23 224 Complete THERAPIST ORDERS 12/23 220 Complete D-DIMER 12/23 2100 Complete TROPONIN LEVEL 12/23 2099 Complete LIPASE 12/23 2099 Complete HEPATIC FUNCTION PANEL 12/23 2099 Complete CBC WITHOUT DIFFERENTIAL 12/23 2099 Complete BASIC METABOLIC PANEL 12/23 2099 Complete AMYLASE 12/23 2099 Complete EKG 12/23 2099 Active Current Medications Sig/Linnea Start time Last Medication Dose Stop Time Status Admin Magnesium Sulfate 1 GM ONCE ONE 12/23 2114 AC 12/23 (Mag Sulfate in D5) 12/244 2128 Dextrose/Water 100 ML (D5W) Laboratory Tests 12/23/172234: pH 7.35, pCO2 63 *H, pO2 78 L, HCO3 34 H, ABG O2 Sat (Measured) 93.0 L, P-50 (Temp Corrected) N, Carboxyhemoglobin 1.0 L, O2 Concentration % 45%, Temperature 98.9, O2 Delivery Method HFNC AT 55LPM, Phlebotomy Draw Site RIGHT RADIAL 12/23/172109: Anion Gap 8, Estimated GFR > 60, BUN/Creatinine Ratio 85.0 H, Glucose 161 H, Calcium 9.7, Total Bilirubin 0.5, Direct Bilirubin 0.4, AST 26, ALT 23, Alkaline Phosphatase 57, Troponin I 0.02, Total Protein 7.2, Albumin 3.5, Amylase 30, Lipase 39, D-Dimer High Sensitivty 240, CBC w Diff NO MAN DIFF REQ, RBC 4.14 L, MCV 92.3, MCH 29.5, MCHC 31.9 L, RDW 13.6, MPV 8.8, Gran % 68.5, Lymphocytes % 17.9 L, Monocytes % 12.0 H, Eosinophils % 1.4, Basophils % 0.2, Absolute Granulocytes 9.2 H, Absolute Lymphocytes 2.4, Absolute Monocytes 1.6 H, Absolute Eosinophils 0.2, Absolute Basophils 0 Diagnostic Imaging: Viewed by Me: Radiology Read. Discussed w/RAD: Radiology Read. CXR Impression: PATIENT: MARQUITA TREVINO PRESENT AGE: 82 PATIENT ACCOUNT NO: [id number] : 36 LOCATION: [facility] ORDERING PHYSICIAN: Napoleon Jensen MD SERVICE DATE: 12/23/17 EXAM TYPE: RAD - XRY- PORTABLE CHEST XRAY EXAMINATION: XR PORTABLE CHEST CLINICAL INFORMATION: Dyspnea. COMPARISON: Chest x-ray 09/13/2017. PET/CT exam 10/18/2017 TECHNIQUE: Portable frontal view of the chest was obtained. 10:42 PM FINDINGS: There is emphysematous hyperinflation of lungs. No acute abnormality. No pulmonary vascular congestion. No infiltrate or pleural effusion. No pneumothorax. There is multilevel degenerative change of the dorsal spine. There is ossifying callus around healing fracture of posterior left sixth and seventh ribs. IMPRESSION: Emphysematous hyperinflation of lungs. No acute abnormality of chest. DICTATED BY: Tyrel Mcdonald MD DATE/TIME DICTATED:12/23/172258 DINING ROOM COORDINATOR:MARLON DATE/TIME TRANSCRIBED:12/23/172258 CONFIDENTIAL, DO NOT COPY WITHOUT APPROPRIATE AUTHORIZATION. <Electronically signed in Other Vendor System> SIGNED BY: Tyrel Mcdonald MD 12/23/17 0429 Initial ED EKG: LBBB, no change from prior Departure Departure Disposition: STILL A PATIENT Condition: Stable Clinical Impression Primary Impression: COPD exacerbation Referrals: Jarred GALLAGHER,Bolivar Dee (PCP/Family) Departure Forms: Customer Survey General Discharge Information Admission Note Spoke With: Jaquelin Bentley MD Documentation of Exam: Documentation of any treatments & extenuating circumstances including Concerns Regarding Discharge (functional status, medication knowledge or non-compliance, living conditions, etc.) that warrant an admission rather than observation: PT with end stage copd, presents with hypoxia to 85% on her 5l nc, now feeling better after continuous nebs, steroids, abx, high flow 02. Critical Care Note Critical Care Note Critical Care Time: 30-74 min Comments: pt requires continuous nebs, magnesium sulfate and hi-flow 02 to stabilize
[2017-12-23 21:29] LABS: ABSOLUTE BASOPHIL COUNT 0 /CUMM (0.0-0.2); ABSOLUTE EOSINOPHIL COUNT 0.2 /CUMM (0.0-0.7); ABSOLUTE GRANULOCYTE CT 9.2 /CUMM (1.4-6.5); ABSOLUTE LYMPH COUNT 2.4 /CUMM (1.2-3.4); ABSOLUTE MONOCYTE COUNT 1.6 /CUMM (0.10-0.60); BASOPHIL % 0.2 % (0.0-2.0); EOSINOPHIL % 1.4 % (0-5); GRANULOCYTE % 68.5 % (42.2-75.2); HEMATOCRIT 38.3 % (37-47); MEAN CORPUSCULAR HGB 29.5 PG (27.0-31.0); MEAN CORPUSCULAR HGB CONC 31.9 G/DL (33.0-37.0); MEAN CORPUSCULAR VOLUME 92.3 FL (81.0-99.0); MEAN PLATELET VOLUME 8.8 FL (7.4-10.4); PLATELET COUNT 323 /CUMM (130-400); RBC DISTRIBUTION WIDTH 13.6 % (11.5-14.5); RED BLOOD CELL CT 4.14 /CUMM (4.20-5.40); WHITE BLOOD CELL COUNT 13.5 /CUMM (4.8-10.8)
--- NOTE | 2017-12-23 23:05 | RADIOLOGY REPORT ---
EXAMINATION: XR PORTABLE CHEST CLINICAL INFORMATION: Dyspnea. COMPARISON: Chest x-ray 09/13/2017. PET/CT exam 10/18/2017 TECHNIQUE: Portable frontal view of the chest was obtained. 10:42 PM FINDINGS: There is emphysematous hyperinflation of lungs. No acute abnormality. No pulmonary vascular congestion. No infiltrate or pleural effusion. No pneumothorax. There is multilevel degenerative change of the dorsal spine. There is ossifying callus around healing fracture of posterior left sixth and seventh ribs. IMPRESSION: Emphysematous hyperinflation of lungs. No acute abnormality of chest.
--- NOTE | 2017-12-24 00:50 | History & Physical ---
Dawna GALLAGHER,[facility] 12/24/17 0049: General Information and HPI MD Statement: I have seen and personally examined MARQUITA RTEVINO and documented this H&P. The patient is a 82 year old F who presented with a patient stated chief complaint of [shortness of breath and low oxygen saturations]. Source of Information: patient, family Exam Limitations: clinical condition History of Present Illness: 82-year-old female with past medical history of HFpEF, restrictive lung disease on 5L home O2 at baseline, hypertension, colon cancer s/p hemicolectomy, hiatal hernia presented to the ED with complains of increasing shortness of breath since this morning. The patient states that earlier this morning she found her oxygen saturations in the 70s. She took her usual albuterol neb and symbicort but did not find significant improvement in her condition. She is only able to ambulate limited distance (going to bathroom) as she starts getting short of breath. Of note, she states that she has been experiencing coughing with taking sips of water. As her saturations did not improve, she decided to come to the ED for further treatment. Of note, the patient was made home hospice a week ago. However, this decision was reversed today in the setting of her hospital admission today. Allergies/Medications Allergies: Coded Allergies: Penicillins (UNKNOWN 12/22/15) amoxicillin (UNKNOWN 12/22/15) azithromycin (UNKNOWN 12/22/15) sulfamethoxazole (From Bactrim) (RASH 12/22/15) trimethoprim (From Bactrim) (RASH 12/22/15) Home Med list Acetaminophen (Tylenol) 325 MG TABLET 2 TAB PO Q6P PRN PAIN Albuterol Sulfate 2.5 MG/3 ML VIAL.NEB 3 ML INH Q4H PRN SHORTNESS OF BREATH Aspirin (Ecotrin*) 81 MG TABLET. 1 TAB PO DAILY HEART HEALTH (Reported) Dont take aspirin on tue,tue and tuesday(06/03-06/05) before the Vertebroplasty.Can resume afterwards depending on 's recommendations. Budesonide/Formoterol Fumarate (Symbicort 80-4.5 Mcg Inhaler) 10.2 GM HFA.AER.AD 2 PUF INH BID COPD (Reported) Cephalexin 250 MG CAPSULE 1 CAP PO DAILY UTI PREVENTION (Reported) Ipratropium/Albuterol Sulfate (Iprat-Albut 0.5-3(2.5) MG/3 Ml) 0.5 MG-3 MG (2.5 MG BASE)/3 ML AMPUL.NEB 1 VIAL INH Q6 PRN COPD FOR ACUTE COPD EXACERBATION ICD9 CODE J44.9 Levothyroxine Sodium 75 MCG TABLET 1 TAB PO DAILY THYROID (Reported) Metoprolol Tartrate 25 MG TABLET 0.5 TAB PO BID SVT (Reported) Pravastatin Sodium 40 MG TABLET 1 TAB PO DAILY CHOLESTEROL (Reported) Prednisone 10 MG TABLET 1 TAB PO DAILY COPD DATE TABS 09/17- 6 09/19- 5 09/22- 4 09/25- 3 09/28- 2 10/01-10/03 1 10/04-10/06 0.5 . 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 BROTHER (colon cancer). Psychosocial History Who Do You Live With? self Services at Home: None Primary Language: Macedonian ETOH Use: denies use Illicit Drug Use: denies illicit drug use Functional Ability ADLs Independent: dressing, eating, toileting, bathing. Ambulation: independent Review of Systems Review of Systems Constitutional: Denies: chills, fever. EENTM: Reports: no symptoms. Cardiovascular: Denies: chest pain, palpitations. Respiratory: Reports: short of breath. GI: Reports: no symptoms. Genitourinary: Reports: no symptoms. Musculoskeletal: Reports: no symptoms. Skin: Reports: no symptoms. Neurological/Psychological: Reports: no symptoms. Hematologic/Endocrine: Reports: no symptoms. Exam & Diagnostic Data Last 24 Hrs of Vital Signs/I&O Vital Signs Date Time Temp Pulse Resp B/P B/P Pulse O2 O2 Flow FiO2 Mean Ox Delivery Rate 12/24 0120 101 20 117/56 93 BIPAP 12/24 0103 99 92 12/23 2302 98.8 106 20 123/58 90 Nasal 50% Cannula 12/23 2110 87 Nasal 5.0L Cannula 12/24 2103 86 Nasal 6.0L Cannula 12/24 2103 98.9 120 20 101/72 87 Nasal Cannula Intake & Output 12/24 0800 12/24 0000 12/23 1600 Intake Total Output Total Balance Patient 120 lb Weight Weight Estimated Measurement Method Physical Exam General Appearance Alert, Oriented X3, Cooperative, Moderate Distress Skin No Rashes, No Breakdown Skin Temp/Moisture Exam: Warm/Dry Sepsis Skin Exam (color): Normal for Ethnicity HEENT Atraumatic Cardiovascular Normal S1, Normal S2, No Murmurs Lungs Normal Air Movement, decreased air movement throughout Abdomen Soft, No Tenderness Neurological Normal Speech Extremities No Edema Last 24 Hrs of Labs/Bill: Laboratory Tests 12/23/172234: pH 7.35, pCO2 63 *H, pO2 78 L, HCO3 34 H, ABG O2 Sat (Measured) 93.0 L, P-50 (Temp Corrected) N, Carboxyhemoglobin 1.0 L, O2 Concentration % 45%, Temperature 98.9, O2 Delivery Method HFNC AT 55LPM, Phlebotomy Draw Site RIGHT RADIAL 12/23/172109: Anion Gap 8, Estimated GFR > 60, BUN/Creatinine Ratio 85.0 H, Glucose 161 H, Calcium 9.7, Total Bilirubin 0.5, Direct Bilirubin 0.4, AST 26, ALT 23, Alkaline Phosphatase 57, Troponin I 0.02, Total Protein 7.2, Albumin 3.5, Amylase 30, Lipase 39, D-Dimer High Sensitivty 240, CBC w Diff NO MAN DIFF REQ, RBC 4.14 L, MCV 92.3, MCH 29.5, MCHC 31.9 L, RDW 13.6, MPV 8.8, Gran % 68.5, Lymphocytes % 17.9 L, Monocytes % 12.0 H, Eosinophils % 1.4, Basophils % 0.2, Absolute Granulocytes 9.2 H, Absolute Lymphocytes 2.4, Absolute Monocytes 1.6 H, Absolute Eosinophils 0.2, Absolute Basophils 0 Assessment/Plan Assessment: 82-year-old female with past medical history of HFpEF, restrictive lung disease on 5L home O2 at baseline, hypertension, colon cancer s/p hemicolectomy, hiatal hernia presented to the ED with complains of increasing shortness of breath since this morning. Assessment: 1. Acute on Chronic Hypoxemic Respiratory Failure 2. Acute COPD Exacerbation 3. History of Hypertension 4. History of Restrictive Lung disease Plan: * Continue supplemental oxygen to maintain target sats >90%. Currently on high flow oxygen at 55%. * Her blood gas shows significant CO2 retention. While her mental status is good , she will need BiPAP. * TRC/Nebs as needed. * Will hold antibiotics as she is allergic to penicillin and azithromycin * IV Solu-Medrol 40mg q6. Will taper as tolerated. * Sputum cultures * Pulm consult in am. * Swallow eval in am. * Accucheks. If blood sugars are elevated, she can be started on Insulin SS. * Chronic medical conditions: continue metoprolol, levothyroxine, aspirin. * Case management consult regarding hospice. * Diet: NPO * DVT Prophylaxis: SC Lovenox * Code: DNR/DNI As Ranked By This Provider Problem List: 1. Respiratory failure Core Measures/Misc (03/20) Acute Coronary Syndrome ACS Diagnosis: No Congestive Heart Failure Congestive Heart Failure Diagnosis No Cerebrovascular Accident CVA/TIA Diagnosis: No VTE (View Protocol) VTE Risk Factors Age>40 No Mechanical VTE Prophylaxis d/t N/A MechProphylax Ordered No VTE Pharm Prophylaxis d/t NA PharmProphylax ordered Sepsis (View protocol) Sepsis Present: No If YES complete Sepsis Event Note If YES complete Sepsis Event Note Kimber Lenz 12/24/17 0102: Core Measures/Misc (03/20) Sepsis (View protocol) If YES complete Sepsis Event Note If YES complete Sepsis Event Note Resident Review Statement Resident Statement: examined this patient, discussed with internal grinding machine operator, agreed with internal grinding machine operator Other Findings: This is a 82-year-old female with past medical history of 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 Apparently the patient found on the morning of presentation that her saturations were dropping into the 70s, she took her usual nebulization and inhalers, however this does not improve her condition, she started to get short of breath even by only ambulating until the bathroom associated with experiencing coughing which continue to cause worsening shortness of breath. She also complained of mild productive sputum however was not able to bring up much phlegm. She is end-stage COPD on 5 L of home oxygen, follows up with primary care Dr. Stern and Dr. Escobar on outpatient, recently 1 week ago, her goals of care were addressed and she was made home hospice, the hospice nurse and the aid were visiting her however today due to worsening shortness of breath and discomfort, the family decided to revoke the hospice status in order for her to get admitted in the hospital for treatment of shortness of breath. They called the hospice agency and made the decision to get admitted at the hospital. Her vitals on presentation temperature of 98.9, pulse of 120, respiration of 20, blood pressure 101/72, she was saturating 87% on nasal cannula when she was placed on BiPAP. On exam she was alert oriented 3, she was continuously coughing and mildly short of breath. PERRLA, HEENT atraumatic normocephalic, neck supple, no JVD. Chest bilateral expiratory wheezes present. Heart S1-S2 present, systolic murmur present Lower extremity pulses palpable no edema cyanosis or clubbing. Her white count was 13.5, H/H of 12.2/38.3, platelet of 323. Sodium of 140, potassium of 5.1, BUN/creatinine 34/0.4, glucose of 161, calcium of 9.7. Liver function test within normal limits, troponin I negative. ABG showed a pH of 7.35/PCO2 of 63, PO2 of 78 and bicarb of 34 on 45% FiO2 on BiPAP. EKG showed sinus tachycardia with left bundle branch block and QTC of 456. Chest x-ray showed emphysematous hyperinflation of the lungs with no acute abnormality of the chest. Previous echocardiogram done on 08/29/2014 showed normal left ventricular size with concentric left ventricular hypertrophy, EF greater than 65% with stage I diastolic dysfunction. We will admit the patient to general medicine floor for treatment of COPD exacerbation. 1 Acute on chronic hypoxemic/hypercarbic respiratory failure. 2. COPD exacerbation. 3. Lung nodule suspicious for malignancy 4. Goals of care-hospice care revoked with admission to hospital. 5. Hyperlipidemia. 6. Hypertension. 7. Hypothyroidism Plan * Continue TRC nebulization, vital signs, intake and output, continue to maintain saturations above 92% while on BiPAP, taper to high flow oxygen as tolerated. * Continue to follow culture * patient received 125 mg of IV Solu-Medrol at the emergency department, will continue 40 every 6 IV Solu-Medrol. * We will hold off antibiotics for now. * Pulm consult with Dr. Escobar in the morning. * As the patient was at risk of aspiration, we will keep her n.p.o. for now. * Swallow evaluation in the morning. * Continue Lipitor 10 mg daily. * Continue Lopressor 12.5 twice daily for hypertension. * Continue aspirin 81 mg daily. * Continue Synthroid 75 mcg daily. * Continue to monitor CBCs/BEP * Aspiration precaution. DVT prophylaxis with else. Patient is DNR/DNI. N.p.o. for now, swallow eval when morning. Pain management with Tylenol Mc GALLAGHER, [facility] 12/24/17 0415: Core Measures/Misc (03/20) Sepsis (View protocol) If YES complete Sepsis Event Note If YES complete Sepsis Event Note Attending MD Review Statement Attending Statement Attending MD Statement: examined this patient, discuss w/resident/PA/GASKET WINDER, agreed w/resident/PA/GASKET WINDER, reviewed images, amended to note Attending Assessment/Plan: 82 yo F with h/o severe end-stage COPD on 5L O2, chronic hypoxic and hypercarbic respiratory failure, lung nodule suspicious for malignancy with patient not being a candidate for lung biopsy, T2DM, SVT, hypothyroidism s/p goiter surgery, small PE, who was recently switched to Hospice Care 1 week ago, is brought in from home for worsening shortness of breath, productive cough and noted to have sats of 85% on 5L. Patient's family reverted the hospice care by calling the agency today, and wanted patient to be treated for her COPD issues. Patient reports using her inhalers without relief. She was started on prednisone taper which she has a few doses left of. She denies sick contacts or recent tavel. She was last admitted in September 2017 for COPD exacerbation. Vitals: afebrile, HR 99-120's, BP 101/72, sats 86% on 6L --> 90% on 50% high flow nasal canula. Exam: AAO, in moderate respiratory distress, Neck supple, Chest b/l reduced air entry with expiratory wheeze+, Heart S1S2 regular, systolic murmur+, LE: no edema. Labs: WBC 13.5, bicarb 40, BUN 34, Creat 0.4, glucose 161, LFTs normal, trop neg. AB.35/63/78/34 on 45% FiO2. CXR: emphysematous hyperinflation of lungs, no acute abnormality of chest. Healing fracture of posterior left sixth and seventh ribs. EKG: sinus tachycardia, LBBB, Qtc 456. Echo (2015): EF > 65%, stage 1 diastolic dysfunction, pulmonary hypertension. PFT (2013): severe obstructive lung disease with airtrapping, hyperinflation and exercise induced desaturation. Patient received solumedrol by EMS, and nebs with ceftriaxone in ER. Assessment and plan: 1. Acute on chronic hypoxemic respiratory failure 2. Chronic hypercarbic respiratory failure 3. COPD with acute exacerbation 4. Lung nodule suspicious for malignancy 5. Home hospice care reverted - Admit to General medicine - TRC nebs - Place on Bipap, continue nocturnal - No need to repeat ABG if clinical improvement - Keep sats > 92% - Sputum cultures - IV solumedrol 40 Q6 - Hold off on antibiotics - patient allergic to penicillin and azithromycin - Pulm consult (Dr. Joseph) - NPO, swallow eval (patient c/o cough when eating) - Please obtain collateral information as to patient Hospice agency - Case management consult - Resume other home meds DVT ppx Lovenox. DNR/I.
--- NOTE | 2017-12-24 02:05 | Admission Certification ---
Admission Certification Certification Statement - As attending physician, I certify that at the time of - admission, based on clinical presentation, severity of - symptoms, need for further diagnostic testing and - therapeutic interventions, and risk of adverse outcomes - without in-hospital treatment, in my clinical assessment, - this patient requires an acute hospital stay for a minimum - of two nights or longer. I have also considered psychsocial - factors such as support system, advanced age, financial - issues, cognitive issues, and failed out-patient treatments, - past re-admission history, safety of patient, and lack of - compliance as applicable. Specific rationale supporting this admission is: Acute on chronic hypoxic respiratory failure, COPD exacerbation.
[2017-12-24 02:30] VITALS: BP 100/62
[2017-12-24 05:47] VITALS: BP 110/64
[2017-12-24 08:40] LABS: ABSOLUTE BASOPHIL COUNT 0 /CUMM (0.0-0.2); ABSOLUTE EOSINOPHIL COUNT 0 /CUMM (0.0-0.7); ABSOLUTE GRANULOCYTE CT 4.9 /CUMM (1.4-6.5); ABSOLUTE LYMPH COUNT 0.7 /CUMM (1.2-3.4); ABSOLUTE MONOCYTE COUNT 0.1 /CUMM (0.10-0.60); BASOPHIL % 0.1 % (0.0-2.0); EOSINOPHIL % 0 % (0-5); GRANULOCYTE % 87.2 % (42.2-75.2); HEMATOCRIT 35.4 % (37-47); MEAN CORPUSCULAR HGB 29.5 PG (27.0-31.0); MEAN CORPUSCULAR VOLUME 92.1 FL (81.0-99.0); MEAN PLATELET VOLUME 9.4 FL (7.4-10.4); RED BLOOD CELL CT 3.85 /CUMM (4.20-5.40)
--- NOTE | 2017-12-24 10:02 | Cons- Pulmonary ---
General Information and HPI Consulting Request Date of Consult: 12/24/17 Requested By: Dr. Alcala Reason for Consult: COPD exacerbation Source of Information: patient, old records Exam Limitations: no limitations History of Present Illness: 82 year old woman. Consultation for acute hypoxemic/hypercarbic respiratory failure in setting of acute exacerbation of COPD. Baseline oxygen is 5L via [place]. Dr. Perez is her primary remote sensing surveyor. She is on bronchodilator therapy, including symbicort and spiriva respimat. She was celebrating her grand-daughters graduation when she felt worse and symptoms of dyspnea and bronchospasm. She feels better since arrival. She reports dysphagia and is awaiting a swallowing evaluation. No arroyo, no cp, no n/v/d/c, no sick contacts, no travel hx. Recent workup suggestive of lung malignancy. She was to transition to hospice care. RLL FDG avid lesion, FDG avid lymphadenopathy, Right adrenal nodule. Allergies/Medications Allergies: Coded Allergies: Penicillins (UNKNOWN 12/22/15) amoxicillin (UNKNOWN 12/22/15) azithromycin (UNKNOWN 12/22/15) sulfamethoxazole (From Bactrim) (RASH 12/22/15) trimethoprim (From Bactrim) (RASH 12/22/15) Home Med List: Acetaminophen (Tylenol) 325 MG TABLET 2 TAB PO Q6P PRN PAIN Albuterol Sulfate 2.5 MG/3 ML VIAL.NEB 3 ML INH Q4H PRN SHORTNESS OF BREATH Aspirin (Ecotrin*) 81 MG TABLET.DR 1 TAB PO DAILY HEART HEALTH (Reported) Dont take aspirin on tue,tue and tuesday(06/03-06/05) before the Vertebroplasty.Can resume afterwards depending on 's recommendations. Budesonide/Formoterol Fumarate (Symbicort 80-4.5 Mcg Inhaler) 10.2 GM HFA.AER.AD 2 PUF INH BID COPD (Reported) Cephalexin 250 MG CAPSULE 1 CAP PO DAILY UTI PREVENTION (Reported) Ipratropium/Albuterol Sulfate (Iprat-Albut 0.5-3(2.5) MG/3 Ml) 0.5 MG-3 MG (2.5 MG BASE)/3 ML AMPUL.NEB 1 VIAL INH Q6 PRN COPD FOR ACUTE COPD EXACERBATION ICD9 CODE J44.9 Levothyroxine Sodium 75 MCG TABLET 1 TAB PO DAILY THYROID (Reported) Metoprolol Tartrate 25 MG TABLET 0.5 TAB PO BID SVT (Reported) Pravastatin Sodium 40 MG TABLET 1 TAB PO DAILY CHOLESTEROL (Reported) Prednisone 10 MG TABLET 1 TAB PO DAILY COPD DATE TABS 09/17- 6 09/19- 5 09/22- 4 09/25- 3 09/28- 2 10/01-10/03 1 10/04-10/06 0.5 . Sitagliptin Phosphate (Januvia) 100 MG TABLET 1 TAB PO DAILY DIABETES ( Reported) Reason to Stop at ADM: ISS Tiotropium [place] (Spiriva) 18 MCG CAP.W.DEV 1 CAP INH DAILY COPD (Reported) Reason to Stop at ADM: TRC NEBS Current Medications: Current Medications Sig/Linnea Start time Last Medication Dose Route Stop Time Status Admin Albuterol Sulfate 3 ML EVERY 4 HRS/AWAKE 12/24 1200 AC INH Albuterol Sulfate 3 ML ONCE ONE 12/23 2114 DC 12/23 INH 12/23 Albuterol Sulfate 3 ML ONCE ONE 12/23 2114 DC 12/23 INH 12/23 Albuterol Sulfate 3 ML ONCE ONE 12/23 2114 DC 12/23 INH 12/23 Aspirin Buffered 81 MG DAILY 12/24 09 AC 12/24 PO 0841 Atorvastatin Calcium 10 MG 1700 12/24 1700 AC PO Azithromycin 500 MG DAILY 12/24 0900 CAN Sodium Chloride 250 ML IV Ceftriaxone Sodium 0 .STK-MED ONE 12/23 2121 DC .ROUTE Ceftriaxone Sodium 1,000 MG ONCE ONE 12/23 2114 DC 12/23 IV 12/23 Dextrose/Sodium 1,000 ML Q20H 12/24 0845 AC 12/24 Chloride IV 0857 Enoxaparin Sodium 40 MG DAILY 12/24 0900 AC 12/24 SC 0841 Enoxaparin Sodium 30 MG BID 12/24 0900 DC SC Ipratropium Basalt 2.5 ML ONCE ONE 12/23 2114 DC INH 12/24 2115 Levothyroxine Sodium 0.075 MG DAILY AC 12/24 0700 AC 12/24 PO 0526 Magnesium Sulfate 1 GM ONCE ONE 12/23 2114 DC 12/23 Dextrose/Water 100 ML IV 06/23 0114 2129 Methylprednisolone 0 .STK-MED ONE 12/24 0116 DC .ROUTE Methylprednisolone 40 MG Q6 12/24 0051 AC 12/24 IV 0526 Metoprolol Tartrate 12.5 MG BID 12/24 0900 AC 12/24 PO 0840 Review of Systems Comments 18 point review of systems was performed and reviewed. Please see pertinent positives and pertinent negatives in the HPI. Otherwise ROS is negative. 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 BROTHER (colon cancer). Psychosocial History Who Do You Live With? self Services at Home: None Primary Language: Croatian Smoking Status: Former Smoker ETOH Use: denies use Illicit Drug Use: denies illicit drug use Functional Ability ADLs Independent: dressing, eating, toileting, bathing. Ambulation: independent Exam & Diagnostic Data Last 24 Hrs of Vital Signs/I&O Vital Signs Date Time Temp Pulse Resp B/P B/P Pulse O2 O2 Flow FiO2 Mean Ox Delivery Rate 12/24 0853 Nasal 5.0L Cannula 12/24 0840 92 132/60 12/24 0547 97.6 84 22 110/64 94 BIPAP 12/24 0257 93 BIPAP 45% 12/24 0230 97.3 97 20 100/62 95 BIPAP 12/24 0222 99 93 12/24 0120 101 20 117/56 93 BIPAP 12/24 0103 99 92 12/23 2302 98.8 106 20 123/58 90 Nasal 50% Cannula 12/23 2110 87 Nasal 5.0L Cannula 12/24 2103 86 Nasal 6.0L Cannula 12/24 2103 98.9 120 20 101/72 87 Nasal Cannula Intake & Output 12/24 1600 12/24 0800 12/24 0000 Intake Total 150 Output Total 300 Balance -150 Intake, IV 30 Intake, Oral 120 Output, Urine 300 Patient 141 lb 120 lb Weight Weight Bed scale Estimated Measurement Method Physical Exam Other Physical Findings: Gen - aaox3 Head and neck - normocephalic, atraumatic Cardiovascular - S1, S2 Lungs - diminished breath sounds, prolonged end expiratory phase Abdomen - bowel sounds positive, soft, non-tender Extremities - without edema Skin - easy bruisability Last 48 Hrs of Labs/Bill: Laboratory Tests 12/24/17 0605: Anion Gap 8, Estimated GFR > 60, BUN/Creatinine Ratio 100.0 H, CBC w Diff NO MAN DIFF REQ, RBC 3.85 L, MCV 92.1, MCH 29.5, MCHC 32.0 L, RDW 14.0, MPV 9.4, Gran % 87.2 H, Lymphocytes % 11.6 L, Monocytes % 1.1 L, Eosinophils % 0, Basophils % 0.1, Absolute Granulocytes 4.9, Absolute Lymphocytes 0.7 L, Absolute Monocytes 0.1, Absolute Eosinophils 0, Absolute Basophils 0 12/23/175: pH 7.35, pCO2 63 *H, pO2 78 L, HCO3 34 H, ABG O2 Sat (Measured) 93.0 L, P-50 (Temp Corrected) N, Carboxyhemoglobin 1.0 L, O2 Concentration % 45%, Temperature 98.9, O2 Delivery Method HFNC AT 55LPM, Phlebotomy Draw Site RIGHT RADIAL 12/23/172109: Anion Gap 8, Estimated GFR > 60, BUN/Creatinine Ratio 85.0 H, Glucose 161 H, Calcium 9.7, Total Bilirubin 0.5, Direct Bilirubin 0.4, AST 26, ALT 23, Alkaline Phosphatase 57, Troponin I 0.02, Total Protein 7.2, Albumin 3.5, Amylase 30, Lipase 39, D-Dimer High Sensitivty 240, CBC w Diff NO MAN DIFF REQ, RBC 4.14 L, MCV 92.3, MCH 29.5, MCHC 31.9 L, RDW 13.6, MPV 8.8, Gran % 68.5, Lymphocytes % 17.9 L, Monocytes % 12.0 H, Eosinophils % 1.4, Basophils % 0.2, Absolute Granulocytes 9.2 H, Absolute Lymphocytes 2.4, Absolute Monocytes 1.6 H, Absolute Eosinophils 0.2, Absolute Basophils 0 Assessment/Plan Impression/Plan: Impression 82 year old woman. Consultation for acute hypoxemic/hypercarbic respiratory failure in setting of acute exacerbation of COPD. Lkely with underlying lung malignancy with FDG avid lesions on PET. Plan -reduce solumedrol to 40mg iv q8h -trc/nebs -await swallowing evaluation -pt has tried bipap last night for reduction of work of breathing, she will try again for comfort today, even though she qualifies for bipap based on her co2 > 60, she wishes not to pursue alf therapy with bipap -she is DNR/DNI - there will be ongoing discussion by the primary team regarding goals of care -pt on spiriva and symbicort at home - please restart DVT prophylaxis at all times Consult Acknowledgment - Thank you for your consult request.
--- NOTE | 2017-12-24 10:26 | PN- Att Addend ---
Attending Addendum Attending Brief Note Patient seen and examined. Daughter in law present at the bedside. I had an extensive conversation with the patient and [id number] regarding the patient's illness. Apparently following a discharge earlier in the year she had a PET scan done that was suggestive of malignancy. She was seen by Delmar Guillaume MD who stated that patient was not a candidate for diagnostic biopsy and treatment. Patient was subsequently placed on hospice care about 2 weeks ago by Siddhartha Joseph MD due to her advanced COPD. At baseline she is on 5 L of oxygen. At baseline she is short of breath all the time. At baseline she has dysphagia and aspiration with solids and liquids. Daughter reports that she aspirates even when placed on thickened liquid at home. Over the past week patient has had worsening shortness of breath. She is also been noted to be hypoxic in the mornings with saturations usually in the 70s despite oxygen supplementation with 5 L via nasal cannula. She does improve as the day progresses. Last night when family was out she complained of worsening shortness of breath. The return to find her hypoxic saturating in the 60s on 5 L of oxygen. They called the hospice service but only got an answering service so she was brought to the emergency room for evaluation. Patient and daughter in law stated that they have not necessarily reversed her decision about hospice care with the patient was brought to the ER simply because they could not get a hold of hospice. They also have a number of questions about what hospice has to offer them. They have been aware of patient 's advanced medical conditions. They have been aware that she does not have any reversible disease. They are aware that her clinical condition will only likely worsen in the future. They have both in agreement that goals of care should be centered around keeping her comfortable. General appearance: Elderly female, chronically ill looking. HEENT: Anicteric, no pallor Heart: S1-S2 regular Lungs: Markedly diminished breath sounds bilaterally. Abdomen: Soft, nontender with normal bowel sounds Extremities: No pedal edema Skin: Frail with mild ecchymotic areas. Laboratory Tests 12/24/17 0605: Anion Gap 8, Estimated GFR > 60, BUN/Creatinine Ratio 100.0 H, CBC w Diff Pending, WBC Pending, RBC Pending, Hgb Pending, Hct Pending, MCV Pending, MCH Pending, MCHC Pending, RDW Pending, Plt Count Pending, MPV Pending, Gran % Pending, Lymphocytes % Pending, Monocytes % Pending, Eosinophils % Pending, Basophils % Pending, Absolute Granulocytes Pending, Absolute Lymphocytes Pending , Absolute Monocytes Pending, Absolute Eosinophils Pending, Absolute Basophils Pending 12/23/172234: pH 7.35, pCO2 63 *H, pO2 78 L, HCO3 34 H, ABG O2 Sat (Measured) 93.0 L, P-50 (Temp Corrected) N, Carboxyhemoglobin 1.0 L, O2 Concentration % 45%, Temperature 98.9, O2 Delivery Method HFNC AT 55LPM, Phlebotomy Draw Site RIGHT RADIAL 12/23/172109: Anion Gap 8, Estimated GFR > 60, BUN/Creatinine Ratio 85.0 H, Glucose 161 H, Calcium 9.7, Total Bilirubin 0.5, Direct Bilirubin 0.4, AST 26, ALT 23, Alkaline Phosphatase 57, Troponin I 0.02, Total Protein 7.2, Albumin 3.5, Amylase 30, Lipase 39, D-Dimer High Sensitivty 240, CBC w Diff NO MAN DIFF REQ, RBC 4.14 L, MCV 92.3, MCH 29.5, MCHC 31.9 L, RDW 13.6, MPV 8.8, Gran % 68.5, Lymphocytes % 17.9 L, Monocytes % 12.0 H, Eosinophils % 1.4, Basophils % 0.2, Absolute Granulocytes 9.2 H, Absolute Lymphocytes 2.4, Absolute Monocytes 1.6 H, Absolute Eosinophils 0.2, Absolute Basophils 0 Microbiology 12/24 610 LOWER RESP: Respiratory Culture - ORD 12/24 610 LOWER RESP: Gram Stain - ORD Problems: 1. Acute on chronic hypoxic and hypercapnic respiratory failure 2. End-stage COPD 3. Pulmonary nodule suggestive of malignancy 4. Dysphasia 5. Chronic heart failure with preserved ejection fraction 6. Restrictive lung disease 7. Hiatal hernia Plan: -Patient's acute on chronic hypoxia and hypercapnia is most likely multifactorial due to combination of her COPD, dysphagia, chronic heart failure, restrictive lung disease and likely hiatal hernia as well. She currently shows a clinical evidence of an infectious process. Her leukocytosis on presentation was likely secondary to her home steroid use. She is being treated empirically for decompensation of her COPD with bronchodilators and systemic steroids. Continue with BiPAP therapy at night while she was in the hospital to treat her hypercapnia. -Decrease Solu-Medrol to 40 mg every 8 hours today tomorrow she will be decreased further to every 12 hours. -She is n.p.o. for swallow evaluation. Patient and family adamantly deny a feeding tube even if clinically indicated. In this case she may have meals as tolerated after her swallow evaluation. -If patient remains clinically stable over the weekend she may be discharged back home on Tuesday. I spent about 25 minutes with the patient and daughter-in- law discussing goals of care with the patient. They will be following up with the patient's son and will make a decision regarding returning to hospice care upon discharge.
[2017-12-24 10:51] LABS: PLATELET COUNT 251 /CUMM (130-400); WHITE BLOOD CELL COUNT 5.7 /CUMM (4.8-10.8)
[2017-12-24 14:54] VITALS: BP 100/60
[2017-12-24 22:39] VITALS: BP 110/40
[2017-12-25 05:34] VITALS: BP 110/58
--- NOTE | 2017-12-25 09:36 | PN- Housestaff ---
Subjective Follow-up For: copd exacerbation acute hypoxemic/hypercarbic respiratory failure Subjective: on high flow 45%, mild respiratory distress tripoding, pursed lips, accessory muscle use, with just sitting up to eat lunch Review of Systems Constitutional: Reports: see HPI. Objective Last 24 Hrs of Vital Signs/I&O Vital Signs Date Time Temp Pulse Resp B/P B/P Pulse O2 O2 Flow FiO2 Mean Ox Delivery Rate 12/25 1406 98.1 86 20 122/70 95 BIPAP 12/25 0901 92 118/58 12/25 0821 97 12/25 0821 97 Nasal 45% Cannula 12/25 0800 97 Nasal 45% Cannula 12/25 0534 97.0 78 22 110/58 97 BIPAP 45% 12/25 0015 78 94 12/24 2239 98.5 96 22 110/40 94 BIPAP 12/24 2100 94 BIPAP 12/24 2046 100 94 12/24 2044 96 110/40 12/24 1609 87 Nasal 5.0L Cannula 12/24 1600 94 Nasal 45% Cannula 12/24 1454 97.2 99 20 100/60 90 Intake & Output 12/25 1600 12/25 0800 12/25 0000 Intake Total 300 150 Output Total Balance 300 150 Intake, IV 300 150 Physical Exam General Appearance: Alert, Oriented X3, Cooperative, Mild Distress, pursed lips, tripoding, accessory muscle use with minimal activity, cachectic Cardiovascular: Regular Rate, Normal S1, Normal S2, No Murmurs Lungs: significantly diminished air entry globally Abdomen: Normal Bowel Sounds, Soft, No Tenderness, No Masses Extremities: No Clubbing, No Cyanosis, No Edema, Normal Pulses Current Medications: Current Medications Sig/Linnea Start time Last Medication Dose Route Stop Time Status Admin Acetaminophen 650 MG Q6P PRN 12/24 1500 AC 12/24 PO 1518 Albuterol Sulfate 3 ML EVERY 4 HRS/AWAKE 12/24 1200 AC 12/25 INH 1145 Aspirin Buffered 81 MG DAILY 12/24 0900 AC 12/25 PO 0847 Atorvastatin Calcium 10 MG 1700 12/24 1700 AC 12/24 PO 1724 Budesonide/ 2 PUF BID 12/24 1244 AC 12/25 Formoterol Fumarate INH 0847 Dextrose/Sodium 1,000 ML Q20H 12/24 0845 AC 12/25 Chloride IV 0503 Enoxaparin Sodium 40 MG DAILY 12/24 0900 AC 12/25 SC 0847 Insulin Aspart 0 TIDAC 12/24 1715 AC 12/25 SC 1329 Levothyroxine Sodium 0.075 MG DAILY AC 12/24 0700 AC 12/25 PO 0809 Lidocaine 1 PAT DAILY 12/24 1457 AC 12/25 TOP 0849 Methylprednisolone 40 MG Q8 12/24 1400 AC 12/25 IV 1329 Metoprolol Tartrate 12.5 MG BID 12/24 0900 AC 12/25 PO 0901 Tiotropium [place] 1 PUF DAILY 12/24 1244 AC 12/25 INH 0847 Assessment/Plan Assessment: 82 year old female with past medical history of HFpEF, restrictive lung disease on 5L home O2, HTN, and colon cancer s/p hemicolectomy, presented to the ED with complains of increasing shortness of breath and hypoxia into the 70s without improvement after albuterol. Acute hypoxemic/hypercarbic respiratory failure from COPD exacerbation: ABG 7.35/63/78/34 Continue solumedrol 40mg q8h Off antibiotics Pulmonology consulted, appreciate recommendations Continue symbicort, spiriva, and albuterol TRC evaluation Continue supplemental oxygen Continue nocturnal BiPAP-patient qualifies for BiPAP but doesn't want it Palliative care consultation HFpEF: Continue aspirin, statin, beta saundra Hypothyroidism: Continue synthroid Patient is currently on a thickened diet, considering pleasure feeding DVT ppx-lovenox sc DNR/DNI, was previously home hospice, revoked with admission Problem List: 1. COPD exacerbation 2. Respiratory failure Pain Ratin Pain Location: n/a Pain Goal: Pain 4 or less Pain Plan: prn Tomorrow's Labs & Rationales: none
--- NOTE | 2017-12-25 10:45 | PN- Att Addend ---
Attending Addendum Attending Brief Note Patient seen and examined. Overnight she was placed on high flow oxygen. She is maintaining saturation on 45% FiO2. Currently sitting up in bed. She reports shortness of breath with mild activity. Denies chest pain. Denies palpitations. Family is present at the bedside. Vital Signs Date Time Temp Pulse Resp B/P B/P Pulse O2 O2 Flow FiO2 Mean Ox Delivery Rate 12/25 0901 92 118/58 12/25 0821 97 12/25 0821 97 Nasal 45% Cannula 12/25 0800 97 Nasal 45% Cannula 12/25 0534 97.0 78 22 110/58 97 BIPAP 45% 12/25 0015 78 94 12/24 2239 98.5 96 22 110/40 94 BIPAP 12/24 2100 94 BIPAP 12/24 2046 100 94 12/24 2044 96 110/40 12/24 1609 87 Nasal 5.0L Cannula 12/24 1600 94 Nasal 45% Cannula 12/24 1454 97.2 99 20 100/60 90 General appearance: Lean patient. Not in acute respiratory distress. HEENT: Anicteric, no pallor, pupils equal and reactive. Neck: Supple with no jugular venous distention. Heart: S1-S2 regular with no audible murmur. Lungs: Diminished breath sounds bilaterally. Abdomen: Nondistended with normal bowel sounds. Soft, nontender with no palpable masses. Extremities: No pedal edema. No cyanosis. Skin: Intact Problems: 1. Acute on chronic hypoxic and hypercapnic respiratory failure 2. End-stage COPD 3. Pulmonary nodule suggestive of malignancy 4. Dysphasia 5. Chronic heart failure with preserved ejection fraction 6. Restrictive lung disease 7. Hiatal hernia Plan: -I had an extensive conversation with the patient and family today regarding goals of care. They all understand her poor prognosis. They understand that her disease process will likely progress and ultimately lead to her demise. Family understands the need for hospice care. I believe the patient understands hospice care as well however she does appear anxious about committing to returning to hospice care. She understands that if she goes home without hospice care and her symptoms are exacerbated she will return to the hospital to undergo the same treatment with poor likelihood of significant improvement. -Given a hesitancy recommend consultation with Dr. Melissa for ongoing discussions regarding goals of care. -Continue current dose of steroid therapy. -Swallow evaluation noted. She appeared to tolerate ground mechanical soft diet with nectar thickened liquids better. Patient declines any further testing for etiology of her dysphagia. Continue diet as tolerated.
--- NOTE | 2017-12-25 11:20 | PN- Pulmonary ---
Subjective HPI/Critical Care Issues: pt seen and examined now on 45% high flow feeling somewhat better, but still labored breathing Objective Current Medications: Current Medications Sig/Linnea Start time Last Medication Dose Route Stop Time Status Admin Acetaminophen 650 MG Q6P PRN 12/24 1500 AC 12/24 PO 1518 Albuterol Sulfate 3 ML EVERY 4 HRS/AWAKE 12/24 1200 AC 12/25 INH 0821 Aspirin Buffered 81 MG DAILY 12/24 0900 AC 12/25 PO 0847 Atorvastatin Calcium 10 MG 1700 12/24 1700 AC 12/24 PO 1724 Budesonide/ 2 PUF BID 12/24 1244 AC 12/25 Formoterol Fumarate INH 0847 Dextrose/Sodium 1,000 ML Q20H 12/24 0845 AC 12/25 Chloride IV 0503 Enoxaparin Sodium 40 MG DAILY 12/24 0900 AC 12/25 SC 0847 Insulin Aspart 0 TIDAC 12/24 1715 AC 12/25 SC 0847 Levothyroxine Sodium 0.075 MG DAILY AC 12/24 0700 AC 12/25 PO 0809 Lidocaine 1 PAT DAILY 12/24 1457 AC 12/25 TOP 0849 Methylprednisolone 40 MG Q8 12/24 1400 AC 12/25 IV 0504 Methylprednisolone 40 MG Q6 12/24 0051 DC 12/24 IV 0526 Metoprolol Tartrate 12.5 MG BID 12/24 0900 AC 12/25 PO 0901 Tiotropium [place] 1 PUF DAILY 12/24 1244 AC 12/25 INH 0847 Vital Signs & I&O Last 24 Hrs of Vitals and I&O: Vital Signs Date Time Temp Pulse Resp B/P B/P Pulse O2 O2 Flow FiO2 Mean Ox Delivery Rate 12/25 0901 92 118/58 12/25 0821 97 12/25 0821 97 Nasal 45% Cannula 12/25 0800 97 Nasal 45% Cannula 12/25 0534 97.0 78 22 110/58 97 BIPAP 45% 12/25 0015 78 94 12/249 98.5 96 22 110/40 94 BIPAP 12/24 2100 94 BIPAP 12/24 2046 100 94 12/25 2043 96 110/40 12/24 1609 87 Nasal 5.0L Cannula 12/24 1600 94 Nasal 45% Cannula 12/24 1454 97.2 99 20 100/60 90 Intake & Output 12/25 1600 12/25 0800 12/25 0000 Intake Total 300 150 Output Total Balance 300 150 Intake, IV 300 150 Exam Other Physical Findings: Gen - aaox3 Head and neck - high flow nasal cannula Cardiovascular - S1, S2 Lungs - diminished breath sounds, prolonged end expiratory phase Abdomen - bowel sounds positive, soft, non-tender Extremities - without edema Skin - easy bruisability Impression/Plan Impression/Plan Impression/Plan: Impression 82 year old woman. Consultation for acute hypoxemic/hypercarbic respiratory failure in setting of acute exacerbation of COPD. Lkely with underlying lung malignancy with FDG avid lesions on PET. 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
[2017-12-25 14:06] VITALS: BP 122/70
[2017-12-25 21:52] VITALS: BP 110/56
[2017-12-26 06:06] VITALS: BP 110/60
--- NOTE | 2017-12-26 07:41 | PN- Housestaff ---
Saeed GALLAGHER,Mary 12/26/17 0741: Subjective Follow-up For: COPD Exacerbation End stage COPD Acute hypoxic respiratory failure Hospice care Subjective: Patient was seen and examined. Reports shortness of breath. Patient is unsure if she wants to go to hospice. Patient's family was at bedside. Hospice discussion took place with palliative care. Family and patient remain undecided of whether they want hospice in the hospital or at home. Patient was on BIPAP at night. Switched to high flow at 50% this morning. Saturating well and taken down to 4L NC, now at 5L this afternoon. No acute events overnight. Review of Systems Constitutional: Reports: see HPI. Objective Last 24 Hrs of Vital Signs/I&O Vital Signs Date Time Temp Pulse Resp B/P B/P Pulse O2 O2 Flow FiO2 Mean Ox Delivery Rate 12/26 0809 60 110/60 12/26 0800 97 Nasal 4.0L Cannula 12/26 0800 97 Nasal 4.0L Cannula 12/26 0800 80 99 12/26 0606 97.0 64 20 110/60 100 BIPAP 12/26 0315 75 96 12/26 0056 72 95 12/26 0052 69 97 12/26 0000 BIPAP 12/25 2152 97.7 90 20 110/56 97 BIPAP 12/25 2147 88 98 12/25 2054 90 110/58 12/25 2001 97 Nasal 50% Cannula 12/25 1613 97 Nasal 50% Cannula 12/25 1406 98.1 86 20 122/70 95 BIPAP Intake & Output 12/26 1600 12/26 0800 12/26 0000 Intake Total 240 440 Output Total Balance 240 440 Intake, IV 200 Intake, Oral 240 240 Physical Exam General Appearance: Alert, Oriented X3, Cooperative, No Acute Distress HEENT: Atraumatic, PERRLA, EOMI, Mucous Membr. moist/pink Cardiovascular: Regular Rate, Normal S1, Normal S2 Lungs: diffuse bilateral wheezing Abdomen: Normal Bowel Sounds, Soft, No Tenderness Extremities: No Clubbing, No Cyanosis, No Edema, Normal Pulses, No Tenderness/ Swelling Current Medications: Current Medications Sig/Linnea Start time Last Medication Dose Route Stop Time Status Admin Acetaminophen 650 MG Q6P PRN 12/24 1500 AC 12/24 PO 1518 Albuterol Sulfate 3 ML EVERY 4 HRS/AWAKE 12/24 1200 AC 12/26 INH 0830 Aspirin Buffered 81 MG DAILY 12/24 0900 AC 12/26 PO 0809 Atorvastatin Calcium 10 MG 1700 12/24 1700 AC 12/25 PO 1700 Budesonide/ 2 PUF BID 12/24 1244 AC 12/26 Formoterol Fumarate INH 0807 Dextrose/Sodium 1,000 ML Q20H 12/24 0845 DC 12/25 Chloride IV 0503 Docusate Sodium 100 MG DAILY 12/26 0400 AC 12/26 PO 0548 Enoxaparin Sodium 40 MG DAILY 12/24 0900 AC 12/26 SC 0809 Insulin Aspart 0 TIDAC 12/24 1715 AC 12/26 SC 0807 Levothyroxine Sodium 0.075 MG DAILY AC 12/24 0700 AC 12/26 PO 0548 Lidocaine 1 PAT DAILY 12/24 1457 AC 12/26 TOP 0810 Methylprednisolone 40 MG Q8 12/24 1400 DC 12/26 IV 0548 Metoprolol Tartrate 12.5 MG BID 12/24 0900 AC 12/26 PO 0809 Patient Medication 1 ED ONE ONE 12/26 0845 TX 12/26 Teaching ED 12/26 0846 1009 Prednisone 40 MG DAILY 12/27 0900 AC PO Tiotropium [place] 1 PUF DAILY 12/24 1244 AC 12/26 INH 0808 Last 24 Hrs of Lab/Bill Results Last 24 Hrs of Labs/Mics: Laboratory Tests 12/26/17 1110: Urine Color YEL, Urine Clarity CLDY H, Urine pH 7.0, Ur Specific [place] 1.015, Urine Protein NEG, Urine Ketones NEG, Urine Nitrite NEG, Urine Bilirubin NEG, Urine Urobilinogen 0.2, Ur Leukocyte Esterase MOD H, Ur Microscopic SEDIMENT EXAMINED, Urine RBC 1-3, Urine WBC 50-75 H, Ur Epithelial Cells FEW, Urine Bacteria MOD H, Urine Hemoglobin NEG, Urine Glucose 500 H Assessment/Plan Assessment: 82 year old female with past medical history of HFpEF, restrictive lung disease on 5L home O2, HTN, and colon cancer s/p hemicolectomy, presented to the ED with complains of increasing shortness of breath and hypoxia into the 70s without improvement after albuterol. Assessment: 12/26/17 Patient has end stage COPD with a ZHOU of approximately 8 with an 18% chance of 4 year survival based on BMI, reduced FEV1, dyspnea and exercise capacity. Patient was previously on hospice care which started 1 week prior to coming into the hospital. Patient's prognosis is poor and remains a hospice candidate. An extensive discussion took place with the family and patient today with palliative care. Patient and family are deciding whether or not they would like inpatient hospice at this point. Patient is currently admitted to the general medical floor for management of the followin. Acute hypoxemic/hypercarbic respiratory failure from COPD exacerbation: - ABG 7.35/63/78/34, evaluated by her clinical pharmacy manager (Dr. Perez)- taken off IV -Solu-Medrol, weaned down to 5L NC. Patient requires BIPAP however is refusing. Currently afebrile off antibiotics but on steroids. On symbicort, spiriva and albuterol. TRC/Neb treatments. - will start oral prednisone taper - continue oxygen and wean as tolerated - continue bronchodilator therapy with symbicort and spiriva - continue TRC/Neb treatments - await family/patient decision on further decision in regards to hospice - palliative and pulmonology consulted - continue BIPAP at night 2. HFpEF: Continue aspirin, statin, beta saundra 3. Hypothyroidism: Continue synthroid Diet: mechanical soft with nectar thick liquids DVT ppx-lovenox sc DNR/DNI, was previously home hospice, revoked with admission Dispo: home hospice vs inpatient hospice care Problem List: 1. COPD exacerbation Pain Ratin Pain Location: n/a Pain Goal: Remain pain free Pain Plan: prn Tomorrow's Labs & Rationales: none Fredrick GALLAGHER,Erika 12/26/17 1201: Attending MD Review Statement Attending Statement Attending MD Statement: examined this patient, discuss w/resident/PA/SHEET METAL PRODUCTION WORKER, agreed w/resident/PA/SHEET METAL PRODUCTION WORKER, discussed with family, reviewed EMR data (avail), discussed with nursing, discussed with case mgmt, amended to note Attending Assessment/Plan: Patient seen and examined. Sitting up in bed. Family present at the bedside. She was seen by her clinical pharmacy manager this morning. Patient states she would like to go home.-Oxygen has been discontinued by her clinical pharmacy manager with recommendations also to place patient on oral steroids as opposed to intravenous steroid therapy. On examination she appears chronically ill. Breathing is mildly labored on occasion. She has adequate entry bilaterally with no significant added sounds. Patient states she would like to return home today. And question about hospice family which includes her son and daughter are in agreement with proceeding with hospice care. Patient continues to appear hesitant but is clear on not wanting to remain in the hospital and not continuing on BiPAP therapy at nighttime. Discussed with the patient's son today it appears that she may have been on the palliative care program as an outpatient and not for hospice care. Our gearcase assembler will be looking into this further. Recommendations: -Patient may be discharged back home today. -She should continue her bronchodilator therapy. She should also continue on a prednisone taper. -Continue oxygen supplementation to maintain saturation above 88%. -Have visiting nurse service should be contacted to reinstate her palliative/ hospice care. -Patient and family are aware that her disease process will not improve only likely continue to worsen until her demise. I have strongly recommended that she continue on hospice care at home in order to provide adequate symptom control.
--- NOTE | 2017-12-26 08:33 | PN- Pulmonary ---
Subjective HPI/Critical Care Issues: Patient is awake alert and interested in going home. She is comfortable on nasal oxygen Objective Current Medications: Current Medications Sig/Linnea Start time Last Medication Dose Route Stop Time Status Admin Acetaminophen 650 MG Q6P PRN 12/24 1500 AC 12/24 PO 1518 Albuterol Sulfate 3 ML EVERY 4 HRS/AWAKE 12/24 1200 AC 12/26 INH 0830 Aspirin Buffered 81 MG DAILY 12/24 0900 AC 12/26 PO 0809 Atorvastatin Calcium 10 MG 1700 12/24 1700 AC 12/25 PO 1700 Budesonide/ 2 PUF BID 12/24 1244 AC 12/26 Formoterol Fumarate INH 0807 Dextrose/Sodium 1,000 ML Q20H 12/24 0845 DC 12/25 Chloride IV 0503 Docusate Sodium 100 MG DAILY 12/26 0400 AC 12/26 PO 0548 Enoxaparin Sodium 40 MG DAILY 12/24 0900 AC 12/26 SC 0809 Insulin Aspart 0 TIDAC 12/24 1715 AC 12/26 SC 0807 Levothyroxine Sodium 0.075 MG DAILY AC 12/24 0700 AC 12/26 PO 0548 Lidocaine 1 PAT DAILY 12/24 1457 AC 12/26 TOP 0810 Methylprednisolone 40 MG Q8 12/24 1400 AC 12/26 IV 0548 Metoprolol Tartrate 12.5 MG BID 12/24 0900 AC 12/26 PO 0809 Tiotropium [place] 1 PUF DAILY 12/24 1244 AC 12/26 INH 0808 Vital Signs & I&O Last 24 Hrs of Vitals and I&O: Vital Signs Date Time Temp Pulse Resp B/P B/P Pulse O2 O2 Flow FiO2 Mean Ox Delivery Rate 12/26 0809 60 110/60 12/26 0606 97.0 64 20 110/60 100 BIPAP 12/26 0315 75 96 12/26 0056 72 95 12/26 0052 69 97 12/26 0000 BIPAP 12/252 97.7 90 20 110/56 97 BIPAP 12/25 2147 88 98 12/254 90 110/58 12/25 2001 97 Nasal 50% Cannula 12/25 1613 97 Nasal 50% Cannula 12/25 1406 98.1 86 20 122/70 95 BIPAP 12/25 0901 92 118/58 Intake & Output 12/26 1600 12/26 0800 06/25 0000 Intake Total 240 440 Output Total Balance 240 440 Intake, IV 200 Intake, Oral 240 240 Oxygen saturation 4 L 98% exam for chest shows diminished breath sounds are no wheezes cardiac exam shows a regular S1 and S2 without murmurs Impression/Plan Impression/Plan Impression/Plan: 82-year-old with lung cancer on hospice came to the hospital with increasing shortness of breath and desaturation because of unable to reach hospice. Patient is now interested in returning home. Patient has evidence of compensated hypercapnic respiratory failure and chronic hypoxic respiratory failure Recommendations: Taper FiO2 his saturations allow DC IV Solu-Medrol begin oral prednisone recontact hospice for discharge planning
[2017-12-26 14:15] VITALS: BP 128/70
--- NOTE | 2017-12-26 14:45 | Cons- Palliative Care ---
Nursing Assessment/Plan Nursing Assessment/Plan: General Information and HPI Consulting Request Date of Consult: 12/26/17 Requested By: Erika Alcala MD Reason for Consult: care/transition planning, eval for hospice care Source patient, family, old records Exam Limitations clinical condition, poor historian Associated Symptoms: anorexia, anxiety History of Present Illness: This is an 82-year-old woman was admitted brought in by ambulance for shortness of breath. She lives alone and has home health services 3 times a week and hospice nurse visiting once a week since the program started. Very limited ambulation; she is barely take shower due to shortness of breath and uses commodes next to her bed. Former smoker quit in 2012 of her diagnosis of COPD, by the time she waited about 210 pounds. She lives alone and takes care of her food and medication; she told me that frequently misses out on her medication and her food due to her extreme shortness of breath and fatigue. 2 of her daughters and her son are living close by and frequently stop by to check up on their mother. Kacy's life is strictly limited to bed and she has not been able to leave the house for a long time due to her shortness of breath. 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 Afterward patient had transition of care to hospice care at home about a week ago. Reviewing list of her medication with the hospice nurse I saw the patient was started on by mouth morphine on an as needed dose and benzodiazepine. On admission day patient was found shortness of breath by her son who allegedly tried to contact the hospice service and then he did not hear back from them he called 911 and violated the hospice condition. Allergies/Medications Allergies: Coded Allergies: Penicillins (UNKNOWN 12/22/15) amoxicillin (UNKNOWN 12/22/15) azithromycin (UNKNOWN 12/22/15) sulfamethoxazole (From Bactrim) (RASH 12/22/15) trimethoprim (From Bactrim) (RASH 12/22/15) Home Med List: Acetaminophen (Tylenol) 325 MG TABLET 2 TAB PO Q6P PRN PAIN Albuterol Sulfate 2.5 MG/3 ML VIAL.NEB 3 ML INH Q4H PRN SHORTNESS OF BREATH Aspirin (Ecotrin*) 81 MG TABLET. 1 TAB PO DAILY HEART HEALTH (Reported) Dont take aspirin on tue,tue and tuesday(06/03-06/05) before the Vertebroplasty.Can resume afterwards depending on 's recommendations. Budesonide/Formoterol Fumarate (Symbicort 80-4.5 Mcg Inhaler) 10.2 GM HFA.AER.AD 2 PUF INH BID COPD (Reported) Cephalexin 250 MG CAPSULE 1 CAP PO DAILY UTI PREVENTION (Reported) Ipratropium/Albuterol Sulfate (Iprat-Albut 0.5-3(2.5) MG/3 Ml) 0.5 MG-3 MG (2.5 MG BASE)/3 ML AMPUL.NEB 1 VIAL INH Q6 PRN COPD FOR ACUTE COPD EXACERBATION ICD9 CODE J44.9 Levothyroxine Sodium 75 MCG TABLET 1 TAB PO DAILY THYROID (Reported) Metoprolol Tartrate 25 MG TABLET 0.5 TAB PO BID SVT (Reported) Pravastatin Sodium 40 MG TABLET 1 TAB PO DAILY CHOLESTEROL (Reported) Prednisone 10 MG TABLET 1 TAB PO DAILY COPD DATE TABS 09/17- 6 09/19- 5 09/22- 4 09/25- 3 09/28- 2 10/01-10/03 1 10/04-10/06 0.5 . Sitagliptin Phosphate (Januvia) 100 MG TABLET 1 TAB PO DAILY DIABETES ( Reported) Reason to Stop at ADM: ISS Tiotropium [place] (Spiriva) 18 MCG CAP.W.DEV 1 CAP INH DAILY COPD (Reported) Reason to Stop at ADM: [facility] Review of Systems Review of Systems Constitutional: Reports: see HPI. Denies: chills, diaphoresis, fever, malaise, weakness, unexplained weight loss. Respiratory: Reports: see HPI, short of breath, stridor, wheezing. Denies: cough, sputum production. Cardiovascular: Reports: no symptoms. Gastrointestinal/Abdominal: Reports: no symptoms. Genitourinary: Reports: no symptoms. Musculoskeletal: Reports: no symptoms, back pain. Skin: Reports: no symptoms. Neurological: Reports: see HPI. 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 BROTHER (colon cancer). Psychosocial History Where Do You Live? Home Who Do You Live With? self Services at Home: Home Health Aide, Nursing Primary Language: Haitian Smoking Status: Former Smoker ETOH Use: denies use Illicit Drug Use: denies illicit drug use Karnofsky Performance Scale: 40 Living Will? unknown Power of Foreign Legal Consultant/HCP? yes Name of POA/HCP: Vamsi Jeffery Other Social History: Patient lives alone and usually misses on her medication and food due to fatigue and shortness of breath. Functional Ability ADLs Independent: dressing, eating, toileting. Needs Assist: bathing. Ambulation: independent, very limited ambulation IADLs Needs Assist: shopping, housework, finances, food prep, telephone, transportation. Unknown: medication admin. Exam & Diagnostic Data Last 24 Hrs of Vitals/I&Os: Vital Signs Date Time Temp Pulse Resp B/P B/P Pulse O2 O2 Flow FiO2 Mean Ox Delivery Rate 12/26 1415 97.0 88 18 128/70 91 Room Air 12/26 0809 60 110/60 12/26 0800 97 Nasal 4.0L Cannula 12/26 08 97 Nasal 4.0L Cannula 12/26 0800 80 99 12/26 0606 97.0 64 20 110/60 100 BIPAP 12/26 0315 75 96 12/26 0056 72 95 12/26 0052 69 97 12/26 0000 BIPAP 12/25 2152 97.7 90 20 110/56 97 BIPAP 12/25 2147 88 98 12/25 2054 90 110/58 12/25 2002 97 Nasal 50% Cannula 12/25 1613 97 Nasal 50% Cannula Intake & Output 12/26 1600 12/26 0800 12/26 0000 Intake Total 240 440 Output Total 200 Balance -200 240 440 Intake, IV 200 Intake, Oral 240 240 Output, Urine 200 Patient 141 lb Weight Physical Exam General Appearance: alert, awake, anxious, cachetic, severe distress, thin Head: bitemporal wasting Eyes: Bilateral: PERRL, EOMI. Ears, Nose, Throat: normal pharynx Neck: normal inspection, supple, full range of motion Respiratory: decreased breath sounds, wheezing, respiratory distress, patient uses accessory muscles Cardiovascular: regular rate/rhythm Peripheral Pulses: 2+ carotid (R), 2+ carotid (L), 2+ apical (R), 2+ apical (L) Gastrointestinal: normal bowel sounds Rectal: normal exam Diagnostic Data Lab/Micro/Pathology Results: Laboratory Tests 12/26/17 1110: Urine Color YEL, Urine Clarity CLDY H, Urine pH 7.0, Ur Specific [place] 1.015, Urine Protein NEG, Urine Ketones NEG, Urine Nitrite NEG, Urine Bilirubin NEG, Urine Urobilinogen 0.2, Ur Leukocyte Esterase MOD H, Ur Microscopic SEDIMENT EXAMINED, Urine RBC 1-3, Urine WBC 50-75 H, Ur Epithelial Cells FEW, Urine Bacteria MOD H, Urine Hemoglobin NEG, Urine Glucose 500 H Imaging Results: CXR: emphysematous hyperinflation of lungs, no acute abnormality of chest. Healing fracture of posterior left sixth and seventh ribs. EKG: sinus tachycardia, LBBB, Qtc 456. Echo (2015): EF > 65%, stage 1 diastolic dysfunction, pulmonary hypertension. PFT (2013): severe obstructive lung disease with airtrapping, hyperinflation and exercise induced desaturation. 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 Assessment of the respiratory failure Patient ZHOU index is 14 associated with its 72% mortality 3 years. And she has poor functional status due to her advanced respiratory failure. Patient during her previous exacerbation has documented PCO2 of more than 60, and additionally she has multiple comorbidities which make her a poor candidate for long transplant. * I had a detailed conversation with the family and the patient regarding the prognostication. Patient certainly needs more attention to what her symptoms ( shortness of breath and agitation). The problem that brought up by the hospice nurse was that the patient kept her CODE STATUS is full code while she was on a hospice care at home, which limited the hospice nurse ability to give the patient enough morphine. Explicit need for medications such as morphine and benzodiazepine and her affect on the respiratory drive (side effects) was discussed in detail with the patient and family (POA). I also informed him that she is eligible for inpatient hospice services that would provide 24-hour professional nursing care in order to ensure that she is getting her medications. Family and the patient would like to have some time before making their final decision. Recommendation Patient's Condition: serious, and this is COPD with multiple comorbidities poor prognosis Prognosis: guarded Is Patient Decisional? limited Case Discussed With: patient, family, house staff Goals of Care: comfort measures only Consult Acknowledgment - Thank you for your consult request. Attending MD Review Statement Attending Statement Attending MD Statement: examined this patient, discuss w/resident/PA/SUPERVISOR BEET END, agreed w/resident/PA/SUPERVISOR BEET END, discussed with family, reviewed EMR data (avail) Attending Assessment/Plan: cachectic female in bed, with moderate to severe dyspnea related to end-stage COPD. Patient has been following with Dr. Perez and recently was enrolled in home hospice. Multiple factors have likely contributed to this hospitalization including incomplete understanding of the hospice plan of care, continuing concerns on the part of the patient regarding use of opiate medication to be used for control of dyspnea, limited support systems in place at home. Along with Dr. Fontaine, I spoke extensively today with patient, and daughters explaining in detail the role of medications for control of symptoms in end- stage COPD. They expressed understanding that intent of medication is to reduce dyspnea (and perhaps improve respiratory mechanics) without adding unwanted side effects of sedation, confusion, hallucinations. Patient expresses understating as well that we will employ a strategy that begins with a low dose of medication , and titration will occur slowly so as to avoid undersirable side effects. Patient is also experiencing odynophagia - though no clear etiology has been identified. I have suggested comfort-foods such as ice cream, pudding, or other foods that she may tolerate. Patient is scheduled to transfer to inpatient hospice and if she improves, then perhaps to transition back to home hospice - provided she and her family are able to put additional supports in place at home.
--- NOTE | 2017-12-26 15:17 | Discharge Summary ---
Visit Information Visit Dates Admission Date: 12/23/17 Discharge Date: 12/26/17 Hospital Course Course Attending Physician: Erika Alcala MD Primary Care Physician: Bolivar Stern MD Allergies: Coded Allergies: Penicillins (UNKNOWN 12/22/15) amoxicillin (UNKNOWN 12/22/15) azithromycin (UNKNOWN 12/22/15) sulfamethoxazole (From Bactrim) (RASH 12/22/15) trimethoprim (From Bactrim) (RASH 12/22/15)
== END 2017-12-26 15:16 | disposition hospice, home (50) | DRG 189 ==
LOC: ERH 20:57 → ERHI 23:26 → 2NA 23:26 → ENRESERV 12-24 01:40 → 2NA 12-24 02:09
PROVIDERS: Internal Medicine; Pediatrics
PROC: 5A09457 Assistance with Respiratory Ventilation, 24-96 Consecutive Hours, Continuous Positive Airway Pressure (ICD-10-PCS; principal; 2017-12-23)
DX: J96.22 Acute and chronic respiratory failure with hypercapnia (principal); J44.1 Chronic obstructive pulmonary disease with (acute) exacerbation; I50.32 Chronic diastolic (congestive) heart failure; Z51.5 Encounter for palliative care; Z99.81 Dependence on supplemental oxygen; J96.21 Acute and chronic respiratory failure with hypoxia; I11.0 Hypertensive heart disease with heart failure; Z79.84 Long term (current) use of oral hypoglycemic drugs; J98.4 Other disorders of lung; Z90.49 Acquired absence of other specified parts of digestive tract; Z85.038 Personal history of other malignant neoplasm of large intestine; K44.9 Diaphragmatic hernia without obstruction or gangrene; Z88.1 Allergy status to other antibiotic agents; Z88.0 Allergy status to penicillin; Z88.2 Allergy status to sulfonamides; Z79.82 Long term (current) use of aspirin; Z79.51 Long term (current) use of inhaled steroids; Z79.52 Long term (current) use of systemic steroids; Z90.710 Acquired absence of both cervix and uterus; E89.0 Postprocedural hypothyroidism; Z66 Do not resuscitate; R91.1 Solitary pulmonary nodule; E78.5 Hyperlipidemia, unspecified; F41.9 Anxiety disorder, unspecified; R63.0 Anorexia; Z91.14 Patient's other noncompliance with medication regimen; K59.00 Constipation, unspecified; E11.42 Type 2 diabetes mellitus with diabetic polyneuropathy; R13.10 Dysphagia, unspecified
CPT/HCPCS: 2NASP; ERO; 36592; 71045; 81001; 82436; 87070; 93005; 93010; 94644; 94799; 96374; 96375; 99291; J0696; J1650; J2920; J2930; J3490; J7042

== ENCOUNTER 2017-12-26 15:16 | Inpatient (IN) | payer OTHER ==
--- NOTE | 2017-12-26 16:07 | History & Physical ---
General Information and HPI Chief Complaint: admit to hospice Source of Information: patient, family, old records Exam Limitations: fair historian, family gives additional information. Pt dyspneic but able to give some info Associated Symptoms: dyspnea, interferes with eating, fatigue History of Present Illness: 82 y.o. F with end-stage COPD, lung nodule suspicious for cancer admitted over weekend with COPD exacerbation. Pt. had been on home hospice since 12/12/17. She did not have hospice medications at home as she had refused delivery. She became acutely dyspneic and was brought to the hospital for symptom management. she was living alone at home. At this time, pt. wants to continue home medicines and is agreeable to as needed morphine and ativan for symptom relief of dyspnea. She also reported to others that she is fearful. She complains to me of constipation. Daughter reports recent history of compression fracture of spine and pt was started on alendronate weekly as outpt. She wants to continue this for now. She also states she does not wish to continue thickened liquids and understands risk. 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 BROTHER (colon cancer). Psychosocial History: , former smoker, no alcohol use. Son Vamsi is POA Functional Ability: Assist with ADLs Dependent IADLs Review of Systems Review of Systems Constitutional: Reports: see HPI. Exam & Diagnostic Data Last 24 Hrs of Vital Signs/I&O T-97; Hr-88; RR-26; BP 128/70; O2 sat 91% on 5lnp Physical Exam General Appearance Alert, Cooperative, Mild Distress Skin No Rashes HEENT Atraumatic, PERRLA, Mucous Membr. moist/pink Cardiovascular Regular Rate, Normal S1, Normal S2, No Murmurs Lungs tachypneic, unable to speak full sentences, decreased air movement, no wheezing/rhonchi Abdomen Normal Bowel Sounds, Soft, No Tenderness Extremities No Clubbing, No Cyanosis, No Edema Last 24 Hrs of Labs/Bill: 12/24/17: CBC with WBC 5.7, H/H 11.3/35.4 chem: Bun 30, Cr 0.3 12/23/17: ABG 7.35/63/78/34/93 on 45% O2 Diagnostic Data CXR Results 12/23/17:IMPRESSION: Emphysematous hyperinflation of lungs. No acute abnormality of chest. Assessment/Plan Assessment: 82 y.o. F with acute on chronic hypoxic and hypercapneic respiratory failure due to end-stage COPD. Plan: Continue home meds except Januvia Insulin sliding scale low dose prednisone taper and trc morphine 1 mg q2hrs prn dyspnea/pain ativan 0.5mg q4 hrs prn anxiety Add senna s 1 tab bid for constipation and dulcolax [place] as needed dysphagia with request to discontinue thickened liquids. Continue mechanical soft diet.
[2017-12-26 21:00] VITALS: BP 135/50
[2017-12-26 22:23] VITALS: BP 122/60
[2017-12-27 05:34] VITALS: BP 110/58
[2017-12-27 14:11] VITALS: BP 130/60
--- NOTE | 2017-12-27 15:34 | PN- Hospice ---
Subjective Subjective: Family at bedside. Pt. received morphine x 2 overnight for dyspnea and stated it had helped. She received no ativan. Yesterday pt and family were not agreeable to scheduling morphine and ativan. Today pt states she will not ask for medicines, "that's just not how she is. The nurse should just give it to me when it's supposed to be given". After long discussion pt. agreeable to scheduling both for relief of dyspnea and anxiety. She was constipated yesterday and moved bowels today after suppository. Able to drink small amount of liquids and eating mechanical soft diet. Review of Systems Constitutional: Reports: see HPI. Objective Last 24 Hrs of Vital Signs/I&O Vital Signs Date Time Temp Pulse Resp B/P B/P Pulse O2 O2 Flow FiO2 Mean Ox Delivery Rate 12/27 1411 98.6 94 20 130/60 96 Nasal 5.0L Cannula 12/27 1223 90 Nasal 5.0L Cannula 12/27 0908 97.6 74 20 110/58 12/27 0819 87 Nasal 5.0L Cannula 12/27 0800 Nasal 5.0L Cannula 12/27 0534 97.6 74 20 110/58 94 Nasal 5.0L Cannula 12/27 0000 Nasal 5.0L Cannula 12/26 2223 98.3 62 19 122/60 100 Nasal Cannula 12/26 2104 91 135/50 12/26 2100 98.2 91 20 135/50 96 Nasal 5.0L Cannula 12/26 2015 98 Nasal 5.0L Cannula 12/26 1650 Nasal 5.0L Cannula 12/26 1600 Nasal 5.0L Cannula Intake & Output 12/27 1600 12/27 0800 12/27 0000 Intake Total 800 200 100 Output Total 400 350 Balance 400 200 -250 Intake, Oral 800 200 100 Number 1 1 Bowel Movements Output, Urine 400 350 Physical Exam General Appearance: alert, fairly comfortable Head: atraumatic Ears, Nose, Throat: moist mucus membranes Respiratory: decreased breath sounds, expiratory wheeze bilat. bases, RR-22; significant CASTREJON Cardiovascular: regular rate/rhythm Extremities: no edema Current Medications: Current Medications Sig/Linnea Start time Last Medication Dose Route Stop Time Status Admin Acetaminophen 650 MG Q4P PRN 12/26 1545 AC PO Acetaminophen 650 MG Q4P PRN 12/26 1545 AC DE Albuterol Sulfate 3 ML EVERY 4 HRS/AWAKE 12/27 1200 AC 12/27 INH 1221 Albuterol Sulfate 3 ML Q4-PRN PRN 12/26 1700 AC 12/26 INH 2014 Alendronate Sodium 70 MG QTUES@0700 12/27 0700 AC 12/27 PO 0555 Aspirin 81 MG DAILY 12/27 0900 AC 12/27 PO 0908 Atorvastatin Calcium 10 MG 1700 12/26 1700 AC 12/26 PO 1846 Bisacodyl 10 MG .STK-MED ONE 12/27 0550 DC DE 12/27 0551 Bisacodyl 10 MG DAILY NEEDED PRN 12/26 1545 AC 12/27 DE 0552 Budesonide/ 2 PUF BID 12/26 2100 AC 12/27 Formoterol Fumarate INH 0907 Glycerin/Mineral Oil 1 CARLIN Q8P PRN 12/26 1545 AC TOP Glycopyrrolate 400 MCG Q4P PRN 12/26 1600 AC IV Insulin Aspart 0 TIDAC 12/26 1700 AC 12/27 SC 1206 Levothyroxine Sodium 0.075 MG DAILY AC 12/27 0700 AC 12/27 PO 0555 Lorazepam 0.5 MG Q12 12/27 2100 UNVr IV Lorazepam 0.5 MG Q4P PRN 12/26 1545 AC IV Metoprolol Tartrate 12.5 MG BID 12/26 2100 AC 12/27 PO 0908 Morphine Sulfate 1 MG Q6 12/27 1530 UNVr IV Morphine Sulfate 1 MG Q2P PRN 12/26 1545 AC 12/27 IV 0915 Prednisone 40 MG DAILY 12/27 0900 AC 12/27 PO 07/08 0859 0908 Scopolamine HBr 1 PAT Q72H PRN 12/26 1600 AC TOP Senna/Docusate Sodium 1 TAB BID 12/26 2100 AC 12/27 PO 0908 Tiotropium [place] 1 PUF DAILY 12/27 0900 AC 12/27 INH 0908 Assessment/Plan Hospice Assessment/Recommendations: 82 y.o. F with acute on chronic hypoxic and hypercapneic respiratory failure due to end-stage COPD. Will schedule morphine 1 mg IV every 6 hours and ativan 0.5 mg IV every 12 hours for dyspnea and anxiety, pt agreeable, and continue as needed doses. Problem List: 1. Respiratory failure 2. COPD with exacerbation
[2017-12-27 22:26] VITALS: BP 120/56
[2017-12-28 06:25] VITALS: BP 88/58
--- NOTE | 2017-12-28 12:02 | PN- Att Addend ---
See Addendum Attending Addendum Attending Brief Note Patient seen and examined. Resting comfortably does not appear to be in acute distress. She is very somnolent this morning. Nursing staff reports that she received morphine and benzodiazepine therapy and later on today. Family is present at the bedside. The understandably distraught about the patient's overall condition but they are happy that she is comfortable. vital Signs Date Time Temp Pulse Resp B/P B/P Pulse O2 O2 Flow FiO2 Mean Ox Delivery Rate 12/28 0804 93 Nasal 5.0L Cannula 12/28 0625 98.1 70 30 88/58 84 Nasal 5.0L Cannula 12/28 0000 Nasal 5.0L Cannula 12/27 2226 98.1 102 18 120/56 93 12/27 2115 102 120/56 12/27 1640 91 Nasal 5.0L Cannula 12/27 1600 Nasal 5.0L Cannula 12/27 1411 98.6 94 20 130/60 96 Nasal 5.0L Cannula 12/27 1223 90 Nasal 5.0L Cannula General appearance: Frail and not in any acute distress. HEENT: Anicteric, no pallor, pupils equal and reactive. Neck: Supple with no jugular venous distention. Heart: S1-S2 regular Lungs: Diminished breath sounds bilaterally Abdomen: Nondistended with normal bowel sounds. Soft, nontender with no palpable masses. Extremities: No pedal edema. No cyanosis. Skin: Ecchymotic area left forearm. Current Medications Sig/Linnea Start time Last Medication Dose Route Stop Time Status Admin Acetaminophen 650 MG Q4P PRN 12/26 1545 AC PO Acetaminophen 650 MG Q4P PRN 12/26 1545 AC [place] Albuterol Sulfate 3 ML EVERY 4 HRS/AWAKE 12/27 1200 AC 12/28 INH 1155 Albuterol Sulfate 3 ML Q4-PRN PRN 12/26 1700 AC 12/26 INH 2013 Alendronate Sodium 70 MG QTUES@0700 12/27 0700 12/27 PO 0555 Aspirin 81 MG DAILY 12/27 0900 AC 12/27 PO 0908 Atorvastatin Calcium 10 MG 1700 12/26 1700 12/27 PO 1557 Bisacodyl 10 MG DAILY NEEDED PRN 12/26 1545 AC 12/27 [place] 0552 Budesonide/ 2 PUF BID 12/26 2100 12/27 Formoterol Fumarate INH 2114 Glycerin/Mineral Oil 1 CARLIN Q8P PRN 12/26 1545 AC TOP Glycopyrrolate 400 MCG Q4P PRN 12/26 1600 AC IV Insulin Aspart 0 TIDAC 12/26 1700 AC 12/27 SC 1622 Levothyroxine Sodium 0.075 MG DAILY AC 12/27 0700 AC 12/27 PO 0555 Lorazepam 0.5 MG Q12 12/27 2100 AC 12/28 IV 1004 Lorazepam 0.5 MG Q4P PRN 12/26 1545 AC 12/28 IV 0604 Metoprolol Tartrate 12.5 MG BID 12/26 2100 AC 12/27 PO 2115 Morphine Sulfate 1 MG Q6 12/27 1530 AC 12/28 IV 1109 Morphine Sulfate 1 MG Q2P PRN 12/26 1545 AC 12/28 IV 1010 Prednisone 40 MG DAILY 12/27 0900 AC 12/27 PO 07/08 0859 0908 Scopolamine HBr 1 PAT Q72H PRN 12/26 1600 AC 12/28 TOP 1120 Senna/Docusate Sodium 1 TAB BID 12/26 2100 AC 12/27 PO 2126 Tiotropium [place] 1 PUF DAILY 12/27 0900 AC 12/27 INH 0908 Problems: 1. Acute on chronic hypoxic/hypercapnic respiratory failure 2. End-stage COPD Plan: -Continue current medication regimen.
[2017-12-28 15:11] VITALS: BP 105/58
[2017-12-28 15:42] VITALS: BP 102/52
== END 2017-12-29 03:40 | disposition expired | DRG 189 ==
LOC: 2NA 15:16
DX: J96.21 Acute and chronic respiratory failure with hypoxia (principal); J44.1 Chronic obstructive pulmonary disease with (acute) exacerbation; J96.22 Acute and chronic respiratory failure with hypercapnia; R91.1 Solitary pulmonary nodule; Z88.1 Allergy status to other antibiotic agents; Z88.0 Allergy status to penicillin; Z88.2 Allergy status to sulfonamides; E78.5 Hyperlipidemia, unspecified; I10 Essential (primary) hypertension; E11.42 Type 2 diabetes mellitus with diabetic polyneuropathy; Z99.81 Dependence on supplemental oxygen; K59.09 Other constipation; Z90.710 Acquired absence of both cervix and uterus; E89.0 Postprocedural hypothyroidism; Z85.118 Personal history of other malignant neoplasm of bronchus and lung; Z51.5 Encounter for palliative care
CPT/HCPCS: 2NAP; J3490